=== PATIENT | female | born 1960 | race Caucasian/White ===

== ENCOUNTER → 2016-06-09 | Outpatient (CLI) | payer OTHER ==
[~2016-06-09] MED LIST: ASCO250T PO; BENZ100 PO; FURO1TAB62 PO; FURO20TA PO; GLIP5TAB8 PO; METF500 PO; METF500T PO; MULT-120 PO; NADO20TA PO; ONETAB22 PO; PANT40TA3 PO; PROM12.54 PO; PROM25TA5 PO; PROP10TA6 PO; PROT40TA PO; SPIR25TA PO; SUCR1TAB PO; VITACAP7 PO
[2016-06-09 09:07] LABS: AUTOMATED NEUTROPHIL # 2.7 TH/MM3 (1.8-7.7); BASOPHIL % 0.6 % (0.0-2.0); EOSINOPHIL # 0.1 TH/MM3 (0-0.4); EOSINOPHIL % 1.4 % (0.0-4.0); HEMATOCRIT 23.4 % (35.0-46.0); LYMPH % 21.1 % (9.0-44.0); LYMPHOCYTE # 0.8 TH/MM3 (1.0-4.8); MEAN CELL VOLUME 84.5 FL (80.0-100.0); MEAN CORPUSCULAR HEMOGLOBIN 27.3 PG (27.0-34.0); MEAN CORPUSCULAR HGB CONC 32.3 % (32.0-36.0); NEUT % 69.9 % (16.0-70.0); PLATELET COUNT 48 TH/MM3 (150-450); RED BLOOD COUNT 2.77 MIL/MM3 (4.00-5.30); RED CELL DISTRIBUTION WIDTH 24.4 % (11.6-17.2); WHITE BLOOD COUNT 3.8 TH/MM3 (4.0-11.0)
[2016-06-09 09:19] LABS: HEMO FLAGS AUTO DIFF
[2016-06-09 12:24] LABS: OVALOCYTES 3+ (NORMAL); PLATELET ESTIMATE SMEAR LOW (NORMAL); PLATELET MORPHOLOGY NORMAL (NORMAL); SCAN/DIFF AUTO DIFF CONFIRMED
== END ==
LOC: CLAB 08:32
PROVIDERS: ATTEND Physician Assistant Medical
DX: D69.6 Thrombocytopenia, unspecified (principal)
CPT/HCPCS: 36415; 85025

== ENCOUNTER → 2016-06-12 | Outpatient (CLI) | payer OTHER ==
[2016-06-12 08:37] LABS: AUTOMATED NEUTROPHIL # 1.8 TH/MM3 (1.8-7.7); BASOPHIL % 0.3 % (0.0-2.0); EOSINOPHIL # 0.1 TH/MM3 (0-0.4); EOSINOPHIL % 2.1 % (0.0-4.0); HEMATOCRIT 21.6 % (35.0-46.0); LYMPH % 25.3 % (9.0-44.0); LYMPHOCYTE # 0.7 TH/MM3 (1.0-4.8); MEAN CELL VOLUME 83.1 FL (80.0-100.0); MEAN CORPUSCULAR HEMOGLOBIN 27.8 PG (27.0-34.0); MEAN CORPUSCULAR HGB CONC 33.4 % (32.0-36.0); MONO % 8.1 % (0.0-8.0); NEUT % 64.2 % (16.0-70.0); PLATELET COUNT 51 TH/MM3 (150-450); RED BLOOD COUNT 2.59 MIL/MM3 (4.00-5.30); RED CELL DISTRIBUTION WIDTH 23.3 % (11.6-17.2); WHITE BLOOD COUNT 2.8 TH/MM3 (4.0-11.0)
[2016-06-12 08:44] LABS: HEMO FLAGS AUTO DIFF
[2016-06-12 10:44] LABS: PLATELET ESTIMATE SMEAR LOW (NORMAL); SCAN/DIFF AUTO DIFF CONFIRMED
[2016-06-12 10:45] LABS: OVALOCYTES 2+ (NORMAL); PLATELET MORPHOLOGY NORMAL (NORMAL); TEARDROP RBCS 1+ (NORMAL)
== END ==
LOC: CLAB 08:05
PROVIDERS: ATTEND Family Medicine
DX: D69.6 Thrombocytopenia, unspecified (principal)
CPT/HCPCS: 36415; 85025

== ENCOUNTER 2016-06-15 17:42 | Emergency (ER) | payer OTHER ==
[~2016-06-15] VITALS: Ht 162.6 cm; Wt 83.2 kg
[~2016-06-15 17:42] MED LIST changes: -BENZ100 PO; -FURO20TA PO; -METF500T PO; -NADO20TA PO; -ONETAB22 PO; -PANT40TA3 PO; -PROM12.54 PO; -PROP10TA6 PO; -SPIR25TA PO
[2016-06-15 17:58] VITALS: BP 138/60; PULSE 89; RESP 18; TEMP 98.5; O2SAT 100
[2016-06-15] MEDS ORDERED: SODIUM CHLORIDE 0.9% FLUSH 5 ML FLUSH IVF PRN (19:00)
[2016-06-15 19:20] LABS: BLOOD, URINE NEG (NEG); GLUCOSE,URINE NEG (NEG); KETONE, URINE NEG (NEG); NITRITE,URINE NEG (NEG)
[2016-06-15 19:48] LABS: BACTERIA, URINE OCC /hpf; METHOD OF COLLECTION CLEAN CATCH; SQUAMOUS EPITHELIAL CELL URINE 0-5 /hpf (0-5); URINE COLOR YELLOW (YELLW/STRAW)
[2016-06-15 19:49] LABS: COMMENT (UR) CULT NOT INDICATED; CULTURE IF INDICATED CULT NOT INDICATED
[2016-06-15 20:03] VITALS: BP 137/57; PULSE 92; RESP 20; O2SAT 100
[2016-06-15 20:05] LABS: AUTOMATED NEUTROPHIL # 2.1 TH/MM3 (1.8-7.7); BASOPHIL # 0.1 TH/MM3 (0-0.2); BASOPHIL % 4.3 % (0.0-2.0); EOSINOPHIL # 0.1 TH/MM3 (0-0.4); EOSINOPHIL % 1.9 % (0.0-4.0); HEMATOCRIT 21.3 % (35.0-46.0); LYMPH % 25.8 % (9.0-44.0); LYMPHOCYTE # 0.9 TH/MM3 (1.0-4.8); MEAN CELL VOLUME 81.3 FL (80.0-100.0); MEAN CORPUSCULAR HEMOGLOBIN 26.7 PG (27.0-34.0); MEAN CORPUSCULAR HGB CONC 32.8 % (32.0-36.0); PLATELET COUNT 56 TH/MM3 (150-450); RED BLOOD COUNT 2.62 MIL/MM3 (4.00-5.30); RED CELL DISTRIBUTION WIDTH 21.7 % (11.6-17.2); WHITE BLOOD COUNT 3.4 TH/MM3 (4.0-11.0)
[2016-06-15 20:11] LABS: HEMO FLAGS AUTO DIFF
[2016-06-15 20:15] LABS: POTASSIUM 3.9 MEQ/L (3.5-5.1)
[2016-06-15 20:44] LABS: BICARBONATE 26.5 MEQ/L (21.0-32.0)
[2016-06-15 20:54] LABS: CALCIUM-PROTEIN CORRECTED 8.3 MG/DL (8.5-10.1)
[2016-06-15 21:00] VITALS: BP 139/53; PULSE 78; RESP 20; O2SAT 100
--- NOTE | 2016-06-15 21:05 | PD ---
HPI Chief Complaint: Abnormal Results Time Seen by Provider: 18:08 Travel History International Travel<30 days: No Contact w/Intl Traveler<30days: No Traveled to known affect area: No History of Present Illness HPI Patient 56-year-old female with a history of cirrhosis as well as pancytopenia presents to emergency department today after she was called by nurse stating that her hemoglobin was low as well as her platelets and white blood cell count. She has had to have multiple transfusions in the past. She is followed by Dr. Nickie Roberts for history of pancytopenia and does get iron infusions. Patient states she has been feeling fatigued as well as some mild shortness of breath which is nothing new for her and this been going on for several months. Denies any fever or abdominal pain nausea vomiting bright red blood per stool. PFSH Past Medical History Hx Anticoagulant Therapy: No Anemia: Yes Arthritis: Yes (HIPS, BACK) Heart Rhythm Problems: Yes Cancer: No Cardiovascular Problems: Yes (CHF) High Cholesterol: Yes Chemotherapy: No Chest Pain: Yes Congestive Heart Failure: Yes Cirrhosis: Yes Cerebrovascular Accident: No Diabetes: Yes Patient Takes Glucophage: Yes Diminished Hearing: No Endocrine: Yes Gastrointestinal Disorders: Yes (VARICES IN STOMACH, BANDED JUN 2015/GI BLEED) GERD: Yes Genitourinary: Yes Headaches: Yes Hiatal Hernia: Yes (repaired in 05/2016) Hypertension: Yes (OFF MEDS) Immune Disorder: No Medical other: Yes (pandoscopy 05/2016) Musculoskeletal: Yes Neurologic: No Psychiatric: No Reproductive: No Respiratory: Yes (Pneumonia) Immunizations Current: Yes Migraines: No Seizures: No Ulcer: Yes Tetanus Vaccination: > 5 Years Influenza Vaccination: No : 2 Para: 2 Past Surgical History Abdominal Surgery: Yes ( BANDED VARICES IN STOMACH x 2) Cardiac Surgery: No Section: Yes (x1) Cholecystectomy: Yes Ear Surgery: No Endocrine Surgery: No Eye Surgery: No Genitourinary Surgery: No Gynecologic Surgery: Yes (partial hysterectomy, ) Hysterectomy: Yes Neurologic Surgery: No Oral Surgery: Yes (TONSILS) Thoracic Surgery: No Tonsillectomy: Yes Other Surgery: Yes (LIVER BIOPSY) Social History Alcohol Use: No (hx of use denies at present) Tobacco Use: No Substance Use: No Allergies-Medications (Allergen,Severity, Reaction): Coded Allergies: Amoxicillin (Verified Allergy, Unknown, HIVES, 06/15/16) Morphine (Verified Allergy, Unknown, HIVES, 06/15/16) Reported Meds & Prescriptions Reported Meds & Active Scripts Active Ascorbic Acid 250 Mg Tab 250 Mg PO DAILY Reported Sucralfate 1 Gm Tab 1 Gm PO TID on empty stomach Phenergan (Promethazine HCl) 25 Mg Tab 25 Mg PO Q6H PRN Multivitamin Women (Multiple Vitamins W/ Minerals) 1 Tab Tab 1 Tab PO DAILY B Complex (B-Complex Vitamins) 1 Cap 1 Cap PO DAILY Lasix (Furosemide) 20 Mg Tab 20 Mg PO DAILY Glucophage (Metformin HCl) 500 Mg Tab 2 Tab PO BIDPC With meals Protonix (Pantoprazole Sodium) 40 Mg Tab 40 Mg PO BID Glipizide 5 Mg Tab 5 Mg PO DAILY Take 30 minutes before a meal Review of Systems Except as stated in HPI: all other systems reviewed are Neg Physical Exam Narrative GENERAL: Well-developed well-nourished, quite pleasant in no apparent distress. SKIN: Warm and dry. HEAD: Atraumatic. Normocephalic. EYES: Pupils equal and round. No scleral icterus. No injection or drainage. ENT: No nasal bleeding or discharge. Mucous membranes pink and moist. NECK: Trachea midline. No JVD. CARDIOVASCULAR: Regular rate and rhythm. No murmur appreciated. RESPIRATORY: No accessory muscle use. Clear to auscultation. Breath sounds equal bilaterally. GASTROINTESTINAL: Abdomen soft, non-tender, nondistended. Hepatic and splenic margins not palpable. MUSCULOSKELETAL: No obvious deformities. No clubbing. No cyanosis. No edema. NEUROLOGICAL: Awake and alert. No obvious cranial nerve deficits. Motor grossly within normal limits. Normal speech. PSYCHIATRIC: Appropriate mood and affect; insight and judgment normal. Data Data Last Documented VS Vital Signs Date Time Temp Pulse Resp B/P Pulse Ox O2 Delivery O2 Flow Rate FiO2 06/15/16 22:09 92 20 142/46 99 06/15/16 18:22 Room Air 06/15/16 17:58 98.5 Orders Basic Metabolic Panel (Bmp) (06/15/16 18:59) Complete Blood Count With Diff (06/15/16 18:59) Urinalysis - C+S If Indicated (06/15/16 18:59) Iv Access Insert/Monitor (06/15/16 18:59) Ecg Monitoring (06/15/16 18:59) Oximetry (06/15/16 18:59) Sodium Chloride 0.9% Flush (Ns Flush) (06/15/16 19:00) Protein Corrected Calcium(Pcc) (06/15/16 20:00) Labs Laboratory Tests Test 06/15/16 06/15/16 19:15 20:00 Urine Collection Type CLEAN CATCH Urine Color YELLOW Urine Turbidity CLEAR Urine pH 6.0 Urine Specific [place] 1.003 Urine Protein NEG mg/dL Urine Glucose (UA) NEG mg/dL Urine Ketones NEG mg/dL Urine Occult Blood NEG Urine Nitrite NEG Urine Bilirubin NEG Urine Leukocyte Esterase NEG Urine Squamous Epithelial 0-5 /hpf Cells Urine Bacteria OCC /hpf Microscopic Urinalysis Comment CULT NOT INDICATED White Blood Count 3.4 TH/MM3 Red Blood Count 2.62 MIL/MM3 Hemoglobin 7.0 GM/DL Hematocrit 21.3 % Mean Corpuscular Volume 81.3 FL Mean Corpuscular Hemoglobin 26.7 PG Mean Corpuscular Hemoglobin 32.8 % Concent Red Cell Distribution Width 21.7 % Platelet Count 56 TH/MM3 Mean Platelet Volume 8.7 FL Neutrophils (%) (Auto) 61.0 % Lymphocytes (%) (Auto) 25.8 % Monocytes (%) (Auto) 7.0 % Eosinophils (%) (Auto) 1.9 % Basophils (%) (Auto) 4.3 % Neutrophils # (Auto) 2.1 TH/MM3 Lymphocytes # (Auto) 0.9 TH/MM3 Monocytes # (Auto) 0.2 TH/MM3 Eosinophils # (Auto) 0.1 TH/MM3 Basophils # (Auto) 0.1 TH/MM3 CBC Comment AUTO DIFF Differential Comment AUTO DIFF CONFIRMED Platelet Estimate LOW Platelet Morphology Comment NORMAL Tear Drop Cells 1+ Ovalocytes 2+ Sodium Level 144 MEQ/L Potassium Level 3.9 MEQ/L Chloride Level 110 MEQ/L Carbon Dioxide Level 26.5 MEQ/L Anion Gap 8 MEQ/L Blood Urea Nitrogen 6 MG/DL Creatinine 0.55 MG/DL Estimat Glomerular Filtration 114 ML/MIN Rate Random Glucose 116 MG/DL Calcium Level 7.4 MG/DL Protein Corrected Calcium 8.3 MG/DL Total Protein 5.4 GM/DL MDM Medical Decision Making Medical Screen Exam Complete: Yes Emergency Medical Condition: Yes Differential Diagnosis Pancytopenia, leukopenia, thrombocytopenia, anemia, liver disease, GI bleeding. Narrative Course Patient's labs reviewed and show stable labs over the past 2 months. Hemoglobin is 7.0 today platelet count is 58 and her white blood cell count is 3.5. Given the chronicity of her anemia there is no indication for transfusion at this time, this was discussed with Dr. Boyle. Patient was discussed with Dr. Boyle prior to discharge. Agrees patient can follow-up with Dr. Roberts in the office by phone in the morning. Patient is stable for discharge at this time. Diagnosis Primary Impression: Pancytopenia Disposition: 01 DISCHARGE HOME Condition: Stable Raz Douglas MD Jun 15, 2016 21:04
[2016-06-15 22:02] LABS: OVALOCYTES 2+ (NORMAL); TEARDROP RBCS 1+ (NORMAL)
[2016-06-15 22:03] LABS: PLATELET ESTIMATE SMEAR LOW (NORMAL); PLATELET MORPHOLOGY NORMAL (NORMAL); SCAN/DIFF AUTO DIFF CONFIRMED
[2016-06-15 22:09] VITALS: BP 142/46
[2016-07-03] MEDS ORDERED: BENZ100 PO (09:06)
[2016-07-03] MEDS ORDERED: FURO1TAB62 PO ×2 (09:09→09:26)
[2016-07-03] MEDS ORDERED: SPIR25TA PO (09:26)
[2016-07-10] MEDS ORDERED: PROP10TA6 PO (09:09)
[2016-08-03] MEDS ORDERED: METF500 PO (16:28)
[2016-08-19] MEDS ORDERED: METF500 PO (09:29)
[2016-09-08] MEDS ORDERED: PANT40TA3 PO (08:35)
[2016-09-08] MEDS ORDERED: FURO20TA PO (08:35)
[2016-09-08] MEDS ORDERED: SPIR25TA PO (08:35)
[2016-09-10] MEDS ORDERED: GLIP5TAB8 PO ×2 (10:34→10:36)
[2016-10-08] MEDS ORDERED: PROP10TA6 PO (09:32)
[2016-10-15] MEDS ORDERED: NADO20TA PO (10:19)
[2016-11-09] MEDS ORDERED: METF500T PO (08:29)
[2016-11-13] MEDS ORDERED: NADO20TA PO (10:59)
[2016-11-13] MEDS ORDERED: PROP10TA6 PO (10:59)
[2016-11-13] MEDS ORDERED: ONETAB22 PO (10:59)
[2016-11-13] MEDS ORDERED: PROM12.54 PO (11:00)
== END 2016-06-15 21:15 | disposition home or self-care (01) ==
LOC: PHED 17:42
DX: D61.818 Other pancytopenia (principal); I10 Essential (primary) hypertension; E11.9 Type 2 diabetes mellitus without complications; E78.00 Pure hypercholesterolemia, unspecified
CPT/HCPCS: 80048; 81001; 84155; 85025; 99283

== ENCOUNTER → 2016-06-15 | Outpatient (CLI) | payer OTHER ==
[2016-06-15 08:11] LABS: AUTOMATED NEUTROPHIL # 2.1 TH/MM3 (1.8-7.7); BASOPHIL % 0.5 % (0.0-2.0); EOSINOPHIL # 0.1 TH/MM3 (0-0.4); EOSINOPHIL % 2.7 % (0.0-4.0); HEMATOCRIT 22.4 % (35.0-46.0); LYMPH % 22.8 % (9.0-44.0); LYMPHOCYTE # 0.7 TH/MM3 (1.0-4.8); MEAN CELL VOLUME 83.3 FL (80.0-100.0); MEAN CORPUSCULAR HEMOGLOBIN 26.4 PG (27.0-34.0); MEAN CORPUSCULAR HGB CONC 31.7 % (32.0-36.0); MONO % 6.5 % (0.0-8.0); NEUT % 67.5 % (16.0-70.0); PLATELET COUNT 58 TH/MM3 (150-450); RED BLOOD COUNT 2.69 MIL/MM3 (4.00-5.30); RED CELL DISTRIBUTION WIDTH 22.2 % (11.6-17.2)
[2016-06-15 08:21] LABS: HEMO FLAGS AUTO DIFF
[2016-06-15 10:29] LABS: OVALOCYTES 2+ (NORMAL); PLATELET ESTIMATE SMEAR LOW (NORMAL); PLATELET MORPHOLOGY NORMAL (NORMAL); SCAN/DIFF AUTO DIFF CONFIRMED
[2016-06-15 10:30] LABS: TEARDROP RBCS 1+ (NORMAL)
== END ==
LOC: CLAB 07:55
PROVIDERS: ATTEND Physician Assistant Medical
DX: D69.6 Thrombocytopenia, unspecified (principal)
CPT/HCPCS: 36415; 85025

== ENCOUNTER → 2016-06-18 | Outpatient (CLI) | payer OTHER ==
[~2016-06-18] MED LIST changes: +BENZ100 PO; +FURO20TA PO; +METF500T PO; +NADO20TA PO; +ONETAB22 PO; +PANT40TA3 PO; +PROM12.54 PO; +PROP10TA6 PO; +SPIR25TA PO
[2016-06-18 08:56] LABS: AUTOMATED NEUTROPHIL # 2.6 TH/MM3 (1.8-7.7); BASOPHIL % 0.6 % (0.0-2.0); EOSINOPHIL # 0.1 TH/MM3 (0-0.4); EOSINOPHIL % 1.8 % (0.0-4.0); HEMATOCRIT 21.7 % (35.0-46.0); LYMPHOCYTE # 0.8 TH/MM3 (1.0-4.8); MEAN CELL VOLUME 83.2 FL (80.0-100.0); MEAN CORPUSCULAR HEMOGLOBIN 27.3 PG (27.0-34.0); MEAN CORPUSCULAR HGB CONC 32.8 % (32.0-36.0); NEUT % 69.6 % (16.0-70.0); PLATELET COUNT 56 TH/MM3 (150-450); RED BLOOD COUNT 2.61 MIL/MM3 (4.00-5.30); RED CELL DISTRIBUTION WIDTH 22.7 % (11.6-17.2); WHITE BLOOD COUNT 3.7 TH/MM3 (4.0-11.0)
[2016-06-18 09:02] LABS: HEMO FLAGS AUTO DIFF
[2016-06-18 11:10] LABS: ACANTHOCYTES OCC (NORMAL); OVALOCYTES 3+ (NORMAL); TEARDROP RBCS 2+ (NORMAL)
[2016-06-18 11:11] LABS: PLATELET ESTIMATE SMEAR LOW (NORMAL); PLATELET MORPHOLOGY NORMAL (NORMAL); SCAN/DIFF AUTO DIFF CONFIRMED
== END ==
LOC: CLAB 08:01
PROVIDERS: ATTEND Physician Assistant Medical
DX: D69.6 Thrombocytopenia, unspecified (principal)
CPT/HCPCS: 36415; 85025

== ENCOUNTER → 2016-06-22 | Outpatient (CLI) | payer OTHER ==
[2016-06-22 10:09] LABS: AUTOMATED NEUTROPHIL # 2.7 TH/MM3 (1.8-7.7); BASOPHIL % 0.3 % (0.0-2.0); EOSINOPHIL # 0.1 TH/MM3 (0-0.4); EOSINOPHIL % 2.1 % (0.0-4.0); HEMATOCRIT 22.5 % (35.0-46.0); LYMPH % 23.4 % (9.0-44.0); LYMPHOCYTE # 0.9 TH/MM3 (1.0-4.8); MEAN CELL VOLUME 88.4 FL (80.0-100.0); MEAN CORPUSCULAR HEMOGLOBIN 28.3 PG (27.0-34.0); MONO % 6.2 % (0.0-8.0); PLATELET COUNT 55 TH/MM3 (150-450); RED BLOOD COUNT 2.55 MIL/MM3 (4.00-5.30); RED CELL DISTRIBUTION WIDTH 27.6 % (11.6-17.2); WHITE BLOOD COUNT 3.9 TH/MM3 (4.0-11.0)
[2016-06-22 10:22] LABS: HEMO FLAGS AUTO DIFF
[2016-06-22 11:27] LABS: OVALOCYTES 2+ (NORMAL); PLATELET ESTIMATE SMEAR LOW (NORMAL); PLATELET MORPHOLOGY NORMAL (NORMAL); SCAN/DIFF AUTO DIFF CONFIRMED; TEARDROP RBCS 1+ (NORMAL)
== END ==
LOC: CLAB 09:39
PROVIDERS: ATTEND Physician Assistant Medical
DX: D69.6 Thrombocytopenia, unspecified (principal)
CPT/HCPCS: 36415; 85025

== ENCOUNTER 2016-06-24 20:52 | Inpatient (IN) | payer OTHER ==
[~2016-06-24] VITALS: Ht 162.6 cm; Wt 84.3 kg
[~2016-06-24 20:52] MED LIST changes: -BENZ100 PO; -FURO20TA PO; -METF500T PO; -NADO20TA PO; -ONETAB22 PO; -PANT40TA3 PO; -PROM12.54 PO; -PROP10TA6 PO; -SPIR25TA PO
[2016-06-24 22:34] VITALS: BP 143/47; PULSE 101; RESP 18; TEMP 98.2; O2SAT 99
[2016-06-24 23:00] VITALS: O2SAT 100
[2016-06-24 23:15] VITALS: BP 143/51; PULSE 100; RESP 20; O2SAT 99
[2016-06-24] MEDS ORDERED: SODIUM CHLOR 0.9% 1000 ML INJ 1,000 ML IV SCH (23:29)
[2016-06-24] MEDS ORDERED: PANTOPRAZOLE SODIUM 40 MG VIAL IVP ONE (23:30)
[2016-06-24] MEDS ORDERED: ONDANSETRON HCL 4 MG/2 ML VIAL IVP ONE (23:30)
[2016-06-24] MEDS ORDERED: SODIUM CHLORIDE 0.9% FLUSH 5 ML FLUSH IVF PRN (23:30)
[2016-06-24] MEDS ORDERED: HYDROmorphone HCL PF 1 MG/ML VIAL IV PUSH ONE (23:30)
--- NOTE | 2016-06-24 23:31 | PD ---
HPI Chief Complaint: Abdominal Pain Time Seen by Provider: 23:29 Travel History International Travel<30 days: No Contact w/Intl Traveler<30days: No Traveled to known affect area: No History of Present Illness HPI 56-year-old female presents to the emergency department for complaint of abdominal cramping generalized weakness and shortness of breath. Patient states she has had these symptoms on and off 1 year. Patient is under the care of Dr. Bishop her web consultant and Dr. Carter her software implementation project manager. Patient was just seen by her software implementation project manager on Wednesday and had iron transfusions. Patient was seen by Dr. Bishop in May and underwent endoscopy with banding. Patient does have history of cirrhosis and esophageal varices. Patient also has history of diabetes CHF and chronic pancytopenia. Patient states her blood work on Wednesday indicated her hemoglobin was 7.2. Patient states her platelets usually run between 30,000 and 50,000. Patient does not report any chest pain orthopnea or PND. Patient reports that resting supine actually eases her abdominal cramping and pain. Patient has noted black and tarry stools. Patient denies nausea vomiting hematemesis or coffee-ground emesis. Patient's had no fever or chills. Patient denies cough congestion productive cough hemoptysis also denies dysuria frequency or urgency. Patient's had no skin rash. [facility] Past Medical History Narrative Medical Anemia arthritis dyslipidemia CHF cirrhosis esophageal varices diabetes GI bleed pancytopenia endoscopy colonoscopy blood transfusion peptic ulcer disease liver biopsy partial hysterectomy cholecystectomy tonsillectomy; no tobacco use no alcohol use; nursing notes reviewed Hx Anticoagulant Therapy: No Anemia: Yes Arthritis: Yes (HIPS, BACK) Heart Rhythm Problems: Yes Cancer: No Cardiovascular Problems: Yes High Cholesterol: Yes Chemotherapy: No Chest Pain: Yes Congestive Heart Failure: Yes Cirrhosis: Yes Cerebrovascular Accident: No Diabetes: Yes Patient Takes Glucophage: Yes (06/24/2016 at 2000) Diminished Hearing: No Endocrine: Yes Gastrointestinal Disorders: Yes (VARICES IN STOMACH, BANDED JUN 2015/GI BLEED) GERD: Yes Genitourinary: Yes Headaches: Yes Hiatal Hernia: Yes (repaired in 05/2016) Hypertension: Yes (OFF MEDS) Immune Disorder: No Musculoskeletal: Yes (Three bulging discs, tear in S1 ) Neurologic: No Psychiatric: No Reproductive: No Respiratory: Yes (Pneumonia) Immunizations Current: Yes Migraines: No Seizures: No Ulcer: Yes Tetanus Vaccination: > 5 Years Influenza Vaccination: No ?: Not : 2 Para: 2 Past Surgical History Abdominal Surgery: Yes ( BANDED VARICES IN STOMACH x 2) Cardiac Surgery: No Section: Yes (x1) Cholecystectomy: Yes Ear Surgery: No Endocrine Surgery: No Eye Surgery: No Genitourinary Surgery: No Gynecologic Surgery: Yes (partial hysterectomy, ) Hysterectomy: Yes Neurologic Surgery: No Oral Surgery: Yes (TONSILS) Thoracic Surgery: No Tonsillectomy: Yes Other Surgery: Yes (LIVER BIOPSY) Social History Alcohol Use: No (hx of use denies at present) Tobacco Use: No Substance Use: No Allergies-Medications (Allergen,Severity, Reaction): Coded Allergies: Amoxicillin (Verified Allergy, Unknown, HIVES, 06/24/16) Morphine (Verified Allergy, Unknown, HIVES, 06/24/16) Reported Meds & Prescriptions Reported Meds & Active Scripts Active Ascorbic Acid 250 Mg Tab 250 Mg PO DAILY Reported Sucralfate 1 Gm Tab 1 Gm PO TID on empty stomach Phenergan (Promethazine HCl) 25 Mg Tab 25 Mg PO Q6H PRN Multivitamin Women (Multiple Vitamins W/ Minerals) 1 Tab Tab 1 Tab PO DAILY B Complex (B-Complex Vitamins) 1 Cap 1 Cap PO DAILY Lasix (Furosemide) 20 Mg Tab 20 Mg PO DAILY Glucophage (Metformin HCl) 500 Mg Tab 2 Tab PO BIDPC With meals Protonix (Pantoprazole Sodium) 40 Mg Tab 40 Mg PO BID Glipizide 5 Mg Tab 5 Mg PO DAILY Take 30 minutes before a meal Review of Systems Except as stated in HPI: all other systems reviewed are Neg General / Constitutional: No: Fever, Chills HENT: No: Congestion Cardiovascular: No: Chest Pain or Discomfort Respiratory: Positive: Shortness of Breath, No: Orthopnea Gastrointestinal: Positive: Abdominal Pain, No: Nausea, Vomiting, Diarrhea, Hematochezia (melena) Genitourinary: No: Dysuria Musculoskeletal: No: Myalgias, Arthralgias Skin: No Rash Neurologic: Positive: Weakness, No: Dizziness, Syncope Psychiatric: Positive: Anxiety Hematologic/Lymphatic: No: Lymph Node Enlargement Physical Exam Narrative GENERAL: Well-developed well-nourished female in no acute distress no respiratory distress SKIN: Warm and dry. HEAD: Normocephalic. EYES: No scleral icterus. No injection or drainage. NECK: Supple, trachea midline. No JVD or lymphadenopathy. CARDIOVASCULAR: Increased Regular rate and rhythm without murmurs, gallops, or rubs. RESPIRATORY: Breath sounds equal bilaterally. No accessory muscle use. GASTROINTESTINAL: Abdomen soft, diffusely tender without guarding or rebound, nondistended. No fluid wave. Rectal exam: Normal sphincter tone black stool. MUSCULOSKELETAL: No cyanosis, or edema. BACK: Nontender without obvious deformity. No CVA tenderness. Data Data Last Documented VS Vital Signs Date Time Temp Pulse Resp B/P Pulse Ox O2 Delivery O2 Flow Rate FiO2 06/25/16 02:00 98.4 95 18 142/56 97 Room Air Orders Complete Blood Count With Diff (06/24/16 23:29) Comprehensive Metabolic Panel (06/24/16 23:29) Lipase (06/24/16 23:29) Lactic Acid (06/24/16 23:29) Prothrombin Time / Inr (Pt) (06/24/16 23:29) Act Partial Throm Time (Ptt) (06/24/16 23:29) Urinalysis - C+S If Indicated (06/24/16 23:29) Iv Access Insert/Monitor (06/24/16 23:29) Ecg Monitoring (06/24/16 23:29) Oximetry (06/24/16 23:29) Ondansetron Inj (Zofran Inj) (06/24/16 23:30) Pantoprazole Inj (Protonix Inj) (06/24/16 23:30) Sodium Chlor 0.9% 1000 Ml Inj (Ns 1000 M (06/24/16 23:29) Sodium Chloride 0.9% Flush (Ns Flush) (06/24/16 23:30) Chest, Single Ap (06/24/16 23:29) Orthostatic Vital Signs (06/24/16 23:29) Type And Screen (06/24/16 23:29) Hydromorphone Pf Inj (Dilaudid Pf Inj) (06/24/16 23:30) Ct Abd/Pel W Iv Contrast(Rout) (06/25/16 ) B-Type Natriuretic Peptide (06/25/16 00:39) Red Blood Cells (Rbc) (06/24/16 23:35) Iohexol 350 Inj (Omnipaque 350 Inj) (06/25/16 01:03) Pantoprazole Inj (Protonix Inj) (06/25/16 01:45) Pantoprazole Inj (Protonix Inj) (06/25/16 01:45) Octreotide Inj (Sandostatin Inj) (06/25/16 01:45) NPO (06/25/16 01:32) Red Blood Cells (Rbc) (06/24/16 23:35) Hgb & Hct (06/25/16 01:57) Hgb & Hct (06/25/16 05:57) Hgb & Hct (06/25/16 09:57) Hgb & Hct (06/25/16 13:57) Admit To Inpatient (06/25/16 ) Vital Signs (Adult) Q4H (06/25/16 01:57) Activity Oob With Assistance (06/25/16 01:57) ^ Plumbing Assembler / Telemetry .CONTINUOUS (06/25/16 01:57) Diet Npo (06/25/16 Breakfast) Sodium Chloride 0.9% Flush (Ns Flush) (06/25/16 02:00) Sodium Chloride 0.9% Flush (Ns Flush) (06/25/16 09:00) Ondansetron Inj (Zofran Inj) (06/25/16 02:00) Scd Bilateral/Knee High LATANYA.BID (06/25/16 01:57) Naloxone Inj (Narcan Inj) (06/25/16 02:00) Inpatient Certification (06/25/16 ) Consult Gastroenterology (06/25/16 ) ^ Watch For Or Notify (06/25/16 02:03) ^ Other Nursing Orders (06/25/16 02:04) Admit Order (Ed Use Only) (06/25/16 ) ^ Plumbing Assembler / Telemetry (06/25/16 02:05) Diet Npo (06/26/16 Breakfast) ^ Saline Lock (06/25/16 02:05) Resp Oxygen Micky C Titrat 1-4 L (06/25/16 ) ^ Notify Dr: Other (06/25/16 02:05) Sodium Chloride 0.9% Flush (Ns Flush) (06/25/16 09:00) Sodium Chloride 0.9% Flush (Ns Flush) (06/25/16 02:15) Consult Gastroenterology (06/25/16 ) Labs Laboratory Tests Test 06/24/16 06/25/16 06/25/16 23:35 00:00 00:45 White Blood Count 4.9 TH/MM3 Red Blood Count 2.70 MIL/MM3 Hemoglobin 7.4 GM/DL Hematocrit 24.0 % Mean Corpuscular Volume 89.0 FL Mean Corpuscular Hemoglobin 27.5 PG Mean Corpuscular Hemoglobin 30.9 % Concent Red Cell Distribution Width 25.8 % Platelet Count 46 TH/MM3 Mean Platelet Volume 9.4 FL Neutrophils (%) (Auto) 81.3 % Lymphocytes (%) (Auto) 13.3 % Monocytes (%) (Auto) 3.8 % Eosinophils (%) (Auto) 1.2 % Basophils (%) (Auto) 0.4 % Neutrophils # (Auto) 4.0 TH/MM3 Lymphocytes # (Auto) 0.6 TH/MM3 Monocytes # (Auto) 0.2 TH/MM3 Eosinophils # (Auto) 0.1 TH/MM3 Basophils # (Auto) 0.0 TH/MM3 CBC Comment AUTO DIFF Differential Comment AUTO DIFF CONFIRMED Platelet Estimate LOW Platelet Morphology Comment ENLARGED Tear Drop Cells 2+ Ovalocytes 3+ Prothrombin Time 11.2 SEC Prothromb Time International 1.0 RATIO Ratio Activated Partial 22.3 SEC Thromboplast Time Sodium Level 142 MEQ/L Potassium Level 3.5 MEQ/L Chloride Level 110 MEQ/L Carbon Dioxide Level 22.0 MEQ/L Anion Gap 10 MEQ/L Blood Urea Nitrogen 11 MG/DL Creatinine 0.66 MG/DL Estimat Glomerular Filtration 92 ML/MIN Rate Random Glucose 184 MG/DL Lactic Acid Level 3.4 mmol/L Calcium Level 7.3 MG/DL Protein Corrected Calcium 8.2 MG/DL Total Bilirubin 3.3 MG/DL Aspartate Amino Transf 29 U/L (AST/SGOT) Alanine Aminotransferase 25 U/L (ALT/SGPT) Alkaline Phosphatase 89 U/L Total Protein 5.4 GM/DL Albumin 2.7 GM/DL Lipase 151 U/L Blood Type A POSITIVE Antibody Screen NEGATIVE Crossmatch Leukocyte-Reduced Red Blood Cells Blood Bank Comment Urine Color TOMAS Urine Turbidity CLEAR Urine pH 5.5 Urine Specific [place] 1.032 Urine Protein TRACE mg/dL Urine Glucose (UA) NEG mg/dL Urine Ketones TRACE mg/dL Urine Occult Blood NEG Urine Nitrite NEG Urine Bilirubin NEG Urine Leukocyte Esterase NEG Urine RBC 0-2 /hpf Urine WBC 0-2 /hpf Urine Squamous Epithelial 0-5 /hpf Cells Urine Bacteria FEW /hpf Microscopic Urinalysis Comment CULT NOT INDICATED B-Type Natriuretic Peptide 30 PG/ML MDM Medical Decision Making Medical Screen Exam Complete: Yes Emergency Medical Condition: Yes Medical Record Reviewed: Yes Interpretation(s) Laboratory Tests Test 06/24/16 06/25/16 06/25/16 23:35 00:00 00:45 White Blood Count 4.9 TH/MM3 Red Blood Count 2.70 MIL/MM3 Hemoglobin 7.4 GM/DL Hematocrit 24.0 % Mean Corpuscular Volume 89.0 FL Mean Corpuscular Hemoglobin 27.5 PG Mean Corpuscular Hemoglobin 30.9 % Concent Red Cell Distribution Width 25.8 % Platelet Count 46 TH/MM3 Mean Platelet Volume 9.4 FL Neutrophils (%) (Auto) 81.3 % Lymphocytes (%) (Auto) 13.3 % Monocytes (%) (Auto) 3.8 % Eosinophils (%) (Auto) 1.2 % Basophils (%) (Auto) 0.4 % Neutrophils # (Auto) 4.0 TH/MM3 Lymphocytes # (Auto) 0.6 TH/MM3 Monocytes # (Auto) 0.2 TH/MM3 Eosinophils # (Auto) 0.1 TH/MM3 Basophils # (Auto) 0.0 TH/MM3 CBC Comment AUTO DIFF Differential Comment AUTO DIFF CONFIRMED Platelet Estimate LOW Platelet Morphology Comment ENLARGED Tear Drop Cells 2+ Ovalocytes 3+ Prothrombin Time 11.2 SEC Prothromb Time International 1.0 RATIO Ratio Activated Partial 22.3 SEC Thromboplast Time Sodium Level 142 MEQ/L Potassium Level 3.5 MEQ/L Chloride Level 110 MEQ/L Carbon Dioxide Level 22.0 MEQ/L Anion Gap 10 MEQ/L Blood Urea Nitrogen 11 MG/DL Creatinine 0.66 MG/DL Estimat Glomerular Filtration 92 ML/MIN Rate Random Glucose 184 MG/DL Lactic Acid Level 3.4 mmol/L Calcium Level 7.3 MG/DL Protein Corrected Calcium 8.2 MG/DL Total Bilirubin 3.3 MG/DL Aspartate Amino Transf 29 U/L (AST/SGOT) Alanine Aminotransferase 25 U/L (ALT/SGPT) Alkaline Phosphatase 89 U/L Total Protein 5.4 GM/DL Albumin 2.7 GM/DL Lipase 151 U/L Blood Type A POSITIVE Urine Color TOMAS Urine Turbidity CLEAR Urine pH 5.5 Urine Specific [place] 1.032 Urine Protein TRACE mg/dL Urine Glucose (UA) NEG mg/dL Urine Ketones TRACE mg/dL Urine Occult Blood NEG Urine Nitrite NEG Urine Bilirubin NEG Urine Leukocyte Esterase NEG Urine RBC 0-2 /hpf Urine WBC 0-2 /hpf Urine Squamous Epithelial 0-5 /hpf Cells Urine Bacteria FEW /hpf Microscopic Urinalysis Comment CULT NOT INDICATED B-Type Natriuretic Peptide 30 PG/ML Differential Diagnosis Abdominal pain, hepatitis, pancreatitis, peptic ulcer disease, upper GI bleed, anemia, pancytopenia, CHF, PE Narrative Course IV access obtained specimens collected and sent for resulting including type and screen IV fluids administered Patient given Zofran and Dilaudid for complaint of pain Patient identified to be anemic with hemoglobin of 7.4 near her baseline Rectal exam is positive for melanotic stool but is briskly Hemoccult positive Patient's case discussed with on-call medicine ambulette driver and GI doctor for admission; anticipate after IV fluids and with melanotic stool hemoglobin will drop and patient will require transfusion even though currently her first hemoglobin is near her baseline. Patient was just seen by her software implementation project manager on Wednesday and hemoglobin at that time was 7.2 essentially unchanged. Patient is also identified to have thrombocytopenia. Patient reports that she has history of pancytopenia and thrombocytopenia platelet count usually runs between 30,000 and 50,000 which is her normal. Patient clinically improved after fluids PRBC transfusion as well as Protonix infusion and octreotide Patient's case has been discussed with on-call gastroenterology patient will be kept nothing by mouth with anticipated endoscopy in the a.m.; medicine will admit to ICU; as patient will be going to the ICU case discussed with on-call ambulette driver [employer] Point of Care Internal Pos. & Neg. Controls: Passed Fecal Specimen Occult Blood: Positive Physician Communication Physician Communication discussed with Dr Tuttle; call placed to [facility] for admission, discussed with Dr Lam; discussed with Dr Batista ambulette driver aware of patient ---seems stable for medicine admit to ICU ambulette driver aware Diagnosis Primary Impression: Gastrointestinal hemorrhage with melena Additional Impressions: Anemia Thrombocytopathia Diabetes Paula Lee MD Jun 24, 2016 23:31
[2016-06-24 23:50] LABS: BASOPHIL % 0.4 % (0.0-2.0); EOSINOPHIL # 0.1 TH/MM3 (0-0.4); EOSINOPHIL % 1.2 % (0.0-4.0); LYMPH % 13.3 % (9.0-44.0); LYMPHOCYTE # 0.6 TH/MM3 (1.0-4.8); MEAN CORPUSCULAR HEMOGLOBIN 27.5 PG (27.0-34.0); MEAN CORPUSCULAR HGB CONC 30.9 % (32.0-36.0); MONO % 3.8 % (0.0-8.0); NEUT % 81.3 % (16.0-70.0); PLATELET COUNT 46 TH/MM3 (150-450); RED CELL DISTRIBUTION WIDTH 25.8 % (11.6-17.2); WHITE BLOOD COUNT 4.9 TH/MM3 (4.0-11.0)
[2016-06-24 23:53] LABS: HEMO FLAGS AUTO DIFF
[2016-06-25] VITALS (32 sets, daily range): BP systolic 103–144; BP diastolic 44–61; PULSE 80–106; RESP 12–26; TEMP 98–98.6; O2SAT 92–100
[2016-06-25] LABS: POTASSIUM 3.5 MEQ/L (3.5-5.1)
[2016-06-25 00:05] LABS: APTT (PATIENT) 22.3 SEC (24.3-30.1); PROTHROMBIN TIME - PATIENT 11.2 SEC (9.8-11.6)
[2016-06-25 00:11] LABS: OVALOCYTES 3+ (NORMAL); PLATELET ESTIMATE SMEAR LOW (NORMAL); PLATELET MORPHOLOGY ENLARGED (NORMAL); TEARDROP RBCS 2+ (NORMAL)
[2016-06-25 00:12] LABS: SCAN/DIFF AUTO DIFF CONFIRMED
[2016-06-25 00:13] LABS: CALCIUM-PROTEIN CORRECTED 8.2 MG/DL (8.5-10.1); TOTAL BILIRUBIN ADULT 3.3 MG/DL (0.2-1.0)
--- NOTE | 2016-06-25 00:17 | RADHPO ---
EXAM DATE/TIME: 06/24/2016 23:44 [facility] COMPARISON: CHEST SINGLE AP, March 22, 2016, 22:19. INDICATIONS : Shortness of breath for 24 hours MEDICAL HISTORY : None. SURGICAL HISTORY : None. ENCOUNTER: Initial ACUITY: 1 day PAIN SCORE: 0/10 LOCATION: Bilateral chest FINDINGS: A single view of the chest demonstrates the lungs to be symmetrically aerated without evidence of mas s, infiltrate or effusion. The cardiomediastinal contours are unremarkable. Osseous structures are intact. CONCLUSION: No acute disease. Alfonzo Perez MD on June 25, 2016 at 0:15 Board Certified Radiologist. This report was verified electronically.
[2016-06-25 00:24] LABS: BLOOD, URINE NEG (NEG); GLUCOSE,URINE NEG (NEG); KETONE, URINE TRACE mg/dL (NEG); NITRITE,URINE NEG (NEG); PH, URINE 5.5 (5.0-8.5)
[2016-06-25 00:28] LABS: URINE COLOR AMBER (YELLW/STRAW)
[2016-06-25 00:29] LABS: BACTERIA, URINE FEW /hpf; COMMENT (UR) CULT NOT INDICATED; COMMENT2 (UR) MUCOUS PRESENT; CULTURE IF INDICATED CULT NOT INDICATED; RBC, URINE 0-2 /hpf (0-3); SQUAMOUS EPITHELIAL CELL URINE 0-5 /hpf (0-5); WBC, URINE 0-2 /hpf (0-5)
[2016-06-25] MEDS ORDERED: IOHEXOL 350 MG/ML 10 ML VIAL (for RAD DIAG) IV ONE (01:03)
--- NOTE | 2016-06-25 01:24 | RADHPO ---
EXAM DATE/TIME: 06/25/2016 00:58 [facility] COMPARISON: CT ABDOMEN & PELVIS W CONTRAST, June 21, 2015, 22:36. INDICATIONS : Epigastric abdominal pain with genearlized weakness for one week. IV CONTRAST: 100 cc Omnipaque 350 (iohexol) IV ORAL CONTRAST: No oral contrast ingested. RADIATION DOSE: 18.43 CTDIvol (mGy) MEDICAL HISTORY : Gastroesophageal reflux disease. Hypertension. Gastric varices. SURGICAL HISTORY : Hysterectomy. section.Gastric banding ENCOUNTER: Initial ACUITY: 1 week PAIN SCALE: 5/10 LOCATION: upper quadrant abdomen TECHNIQUE: Volumetric scanning of the abdomen and pelvis was performed. Using automated exposure control and ad justment of the mA and/or kV according to patient size, radiation dose was kept as low as reasonably achievable to obtain optimal diagnostic quality images. FINDINGS: LOWER LUNGS: Slight basilar atelectasis LIVER: Cirrhotic liver appearance without evidence of suspicious mass or biliary ductal dilatation. Tiny lef t lobe cyst. Granulomatous calcifications. Gallbladder surgically absent. Massive recanalized periumb ilical veins SPLEEN: Markedly enlarged measuring 20 cm in sagittal dimension PANCREAS: Within normal limits. KIDNEYS: Normal in size and shape. There is no mass, stone or hydronephrosis. ADRENAL GLANDS: Within normal limits. VASCULAR: There is no aortic aneurysm. BOWEL/MESENTERY: Bowel structures are nondilated and focally unremarkable. There is moderate ascites. ABDOMINAL WALL: Prominent varicosities, particularly on the right RETROPERITONEUM: There is no lymphadenopathy. BLADDER: No wall thickening or mass. REPRODUCTIVE: Uterus is surgically absent. INGUINAL: There is no lymphadenopathy or hernia. MUSCULOSKELETAL: Within normal limits for patient age. CONCLUSION: Cirrhosis and stigmata of portal hypertension. Alfonzo Perez MD on June 25, 2016 at 1:17 Board Certified Radiologist. This report was verified electronically.
[2016-06-25] MEDS ORDERED: SODIUM CHLOR 0.9% 1000 ML INJ 1,000 ML IV SCH (01:32)
[2016-06-25] MEDS ORDERED: PANTOPRAZOLE SODIUM 40 MG VIAL IV PUSH ONE (01:45)
[2016-06-25] MEDS ORDERED: SODIUM CHLORIDE 0.9% FLUSH 5 ML FLUSH FLUSH PRN (02:00)
[2016-06-25] MEDS ORDERED: NALOXONE HCL 0.4 MG/ML AMP IV PRN (02:00)
[2016-06-25] MEDS ORDERED: ONDANSETRON HCL 4 MG/2 ML VIAL IVP PRN (02:00)
[2016-06-25] MEDS: OCTREOTIDE INJ 500 MCG in SODIUM CHLORID 0.9% 500 ML INJ 500 ML IV SCH ×3 (02:14→21:40)
[2016-06-25] MEDS ORDERED: SODIUM CHLORIDE 0.9% FLUSH 5 ML FLUSH IVF PRN (02:15)
[2016-06-25 02:19] LABS: REVIEW FLAG FINAL
[2016-06-25 02:20] LABS: HEMATOCRIT 20.4 % (35.0-46.0)
--- NOTE | 2016-06-25 02:28 | HHI.PR ---
Subjective Remarks I was notified by Dr. Lima about this patient. In brief, this is a 56yF with long-standing history of cirrhosis and chronic anemia, chronic GI bleeds and esophageal varices. She presented to the ED with generalized weakness and fatigue. She has CXR and CT abd/pelvis without evidence of acute abnormalities. Her hgb is stable at 7.4 which is near her baseline. her plt count is 46k, again near her baseline. Her lactate is 3.4, but her bicarb is 22 and with her liver dysfunction, this is almost certainly more likely to be a Type B lactic acidosis from poor hepatic clearance rather than an acute marker of hypoperfusion. GI has been consulted and will likely perform endoscopy in the near future. I have not evaluated the patient because she is in [place] currently. I discussed her care with Dr. Lima. Dr. Lima believes she is stable and safe for admission to the hospitalist service and to the [facility] for close monitoring. From the information provided to me, if Dr. Lima feels she is safe for P.O. ICU admission with hospitalist service, I agree with her assessment. The Critical Care medicine team will remain peripherally aware of the patient. We will defer medical management of the patient to the hospitalist team at this time. Please call with questions or concerns. We will be happy to see the patient in consultation at the request of the medical team caring for the patient. Reji Batista MD Jun 25, 2016 02:28
[2016-06-25] MEDS: PANTOPRAZOLE INJ 80 MG in SODIUM CHLORIDE 0.9% INJ 100 ML IV SCH ×3 (03:05→23:52)
[2016-06-25] MEDS ORDERED: SODIUM CHLOR 0.9% 250 ML INJ 250 ML IV ONE ×2 (04:15)
[2016-06-25] MEDS ORDERED: CHLORHEXIDINE GLUCONATE 2 % 1 PACK (2 CLOTHS)(extra cloths) TOP PRN (06:15)
[2016-06-25] MEDS ORDERED: DEXTROSE 50% IN WATER 50 ML VIAL(D50) IV PUSH PRN (08:45)
[2016-06-25] MEDS ORDERED: GLUCAGON 1 MG/ML VIAL OTHER PRN (08:45)
--- NOTE | 2016-06-25 08:57 | HHI.HP ---
[facility]Staff Admission Diagnosis GI Bleed h/o esophageal varices;h/o pancytopenia Diagnoses: (1) Symptomatic anemia Diagnosis: Principal (2) Melena Diagnosis: Principal (3) Thrombocytopathia Diagnosis: Secondary (4) Cirrhosis Diagnosis: Secondary (5) Diabetes Diagnosis: Secondary Chief Complaint: Lightheadedness, dizziness, melena Travel History International Travel<30 Days: No Contact w/Intl Traveler <30 Da: No Traveled to Known Affected Are: No History of Present Illness 56-year-old female with known history of cirrhosis, pancytopenia, diabetes, history of GI bleed who presented to hospital because of over one year history of intermittent symptoms to include abdominal cramping, shortness of breath, lightheadedness, melanic stools. Patient does go to a scrap preparation supervisor Dr. Roberts on a regular basis and receives iron transfusions. Patient indicates that she has had a recent endoscopy done by Dr. Bishop with banding. Endoscopy done in March by Dr. Pete which did show portal gastropathy, antral watermelon stomach. Patient came to emergency department for evaluation found to have hemoglobin which appear to be stable from previous evaluations, however did drop overnight from 7.4>6.5. Patient does have chronic thrombocytopenia from her chronic medical conditions. Which appear to be improved from previous admissions. Because of the patient's history of esophageal varices, cirrhosis, drop in hemoglobin, symptomatic anemia is recommended the patient be admitted to the ICU with GI consultation by ER physician. At the time evaluating the patient she is resting comfortably. She denies any nausea, vomiting, hematemesis, diarrhea, constipation. Does openly admit to melena. Discussed with system validation engineer today who recommended that the patient be transferred to the main hospital for urgent endoscopy. Review of Systems Constitutional: DENIES: Diaphoretic episodes, Fatigue, Fever, Weight gain, Weight loss, Chills, Dizziness, Change in appetite, Night Sweats Eyes: DENIES: Blurred vision, Diplopia, Eye inflammation, Eye pain, Vision loss , Double Vision Ears, nose, mouth, throat: DENIES: Vertigo, Ear Pain, Running Nose, Sinus Pain Respiratory: DENIES: Apneas, Cough, Snoring, Wheezing, Hemoptysis, Sputum production, Shortness of breath Cardiovascular: DENIES: Chest pain, Palpitations, Syncope, Dyspnea on Exertion , Lower Extremity Edema, Orthopnea Gastrointestinal: COMPLAINS OF: Black stools, DENIES: Abdominal pain, Bloody stools, Constipation, Diarrhea, Nausea, Vomiting, Difficulty Swallowing, Anorexia Neurologic: DENIES: Abnormal gait, Headache, Localized weakness, Paresthesias, Seizures, Speech Problems, Tremor, Poor Balance Psychiatric: DENIES: Anxiety, Confusion, Mood changes, Depression Past Family Social History Past Medical History Cirrhosis History GI bleed History esophageal varices diabetes Thrombocytopenia secondary to cirrhosis Past Surgical History Partial hysterectomy Right knee arthroscopic surgery for ligament repair Cholecystectomy Banded varices Tonsillectomy Liver biopsy EGD Reported Medications Reported Meds & Active Scripts Active Ascorbic Acid 250 Mg Tab 250 Mg PO DAILY Reported Sucralfate 1 Gm Tab 1 Gm PO TID on empty stomach Phenergan (Promethazine HCl) 25 Mg Tab 25 Mg PO Q6H PRN Multivitamin Women (Multiple Vitamins W/ Minerals) 1 Tab Tab 1 Tab PO DAILY B Complex (B-Complex Vitamins) 1 Cap 1 Cap PO DAILY Lasix (Furosemide) 20 Mg Tab 20 Mg PO DAILY Glucophage (Metformin HCl) 500 Mg Tab 2 Tab PO BIDPC With meals Protonix (Pantoprazole Sodium) 40 Mg Tab 40 Mg PO BID Glipizide 5 Mg Tab 5 Mg PO DAILY Take 30 minutes before a meal Allergies: Coded Allergies: Amoxicillin (Verified Allergy, Unknown, HIVES, 06/24/16) Morphine (Verified Allergy, Unknown, HIVES, 06/24/16) Family History Reviewed is significant for heart disease with father Social History Patient denies any tobacco alcohol or illicit drugs Physical Exam Vital Signs Vital Signs Date Time Temp Pulse Resp B/P Pulse Ox O2 Delivery O2 Flow Rate FiO2 06/25/16 07:00 98.0 88 14 113/51 97 06/25/16 06:44 98.3 91 23 122/55 99 06/25/16 06:00 91 06/25/16 06:00 94 26 122/55 100 06/25/16 05:41 98.0 92 23 127/49 100 06/25/16 05:20 98.0 93 20 127/59 97 Room Air 06/25/16 04:55 98.1 93 20 121/61 97 Room Air 06/25/16 04:40 98.4 89 20 114/54 98 Room Air 06/25/16 04:30 98.0 90 20 123/53 98 Room Air 06/25/16 04:25 98.1 89 20 119/51 99 Room Air 06/25/16 03:00 18 06/25/16 02:00 98.4 95 18 142/56 97 Room Air 06/25/16 01:00 106 20 140/47 99 Room Air 06/25/16 00:05 99 20 144/53 103 20 141/48 107 20 134/44 06/24/16 23:15 100 20 143/51 99 Room Air 06/24/16 23:00 100 Room Air 06/24/16 22:45 20 06/24/16 22:34 98.2 101 18 143/47 99 Physical Exam GENERAL: Well-developed, well-nourished, in no acute distress. alert and orientated HEENT: Head is normocephalic without any lesions or masses noted. Facial features are symmetric. Eyes: Pupils equal round reactive to light. Extraocular muscles are intact. Conjunctivae were clear. Oropharyngeal: Pharynx without any erythema edema. Tongue is midline without deviation. Buccal mucosa is moist without any masses or lesions NECK: Supple without any masses. Trachea midline no deviation. No JVD, no bruits are appreciated CARDIAC: Regular rhythm, regular rate. S1/S2 are heard. No murmurs gallops or rubs. LUNGS: Clear to auscultation bilaterally. No wheeze, rhonchi or rales. No use of accessory muscles on inspiration or expiration. ABDOMEN: Soft, nontender. Nondistended. Bowel sounds heard in all 4 quadrants. No organomegaly or masses. Negative rebound, negative guarding EXTREMITIES: No edema, pulses are equal bilaterally. No cyanosis or clubbing NEUROLOGY: Mood and affect appear appropriate. Cranial nerves II through XII grossly intact. Muscle strength 5/5 in upper and lower extremities bilaterally. Deep tendon reflexes are 2+ in upper and lower extremities bilaterally. Laboratory Laboratory Tests Test 06/24/16 06/25/16 06/25/16 06/25/16 23:35 00:00 00:45 02:10 White Blood Count 4.9 Red Blood Count 2.70 Hemoglobin 7.4 6.5 Hematocrit 24.0 20.4 Mean Corpuscular Volume 89.0 Mean Corpuscular Hemoglobin 27.5 Mean Corpuscular Hemoglobin 30.9 Concent Red Cell Distribution Width 25.8 Platelet Count 46 Mean Platelet Volume 9.4 Neutrophils (%) (Auto) 81.3 Lymphocytes (%) (Auto) 13.3 Monocytes (%) (Auto) 3.8 Eosinophils (%) (Auto) 1.2 Basophils (%) (Auto) 0.4 Neutrophils # (Auto) 4.0 Lymphocytes # (Auto) 0.6 Monocytes # (Auto) 0.2 Eosinophils # (Auto) 0.1 Basophils # (Auto) 0.0 CBC Comment AUTO DIFF Differential Comment AUTO DIFF CONFIRMED Platelet Estimate LOW Platelet Morphology Comment ENLARGED Tear Drop Cells 2+ Ovalocytes 3+ Prothrombin Time 11.2 Prothromb Time International 1.0 Ratio Activated Partial 22.3 Thromboplast Time Sodium Level 142 Potassium Level 3.5 Chloride Level 110 Carbon Dioxide Level 22.0 Anion Gap 10 Blood Urea Nitrogen 11 Creatinine 0.66 Estimat Glomerular Filtration 92 Rate Random Glucose 184 Lactic Acid Level 3.4 Calcium Level 7.3 Protein Corrected Calcium 8.2 Total Bilirubin 3.3 Aspartate Amino Transf 29 (AST/SGOT) Alanine Aminotransferase 25 (ALT/SGPT) Alkaline Phosphatase 89 Total Protein 5.4 Albumin 2.7 Lipase 151 Blood Type A POSITIVE Antibody Screen NEGATIVE Crossmatch Leukocyte-Reduced Red Blood Cells Blood Bank Comment Urine Color TOMAS Urine Turbidity CLEAR Urine pH 5.5 Urine Specific [place] 1.032 Urine Protein TRACE Urine Glucose (UA) NEG Urine Ketones TRACE Urine Occult Blood NEG Urine Nitrite NEG Urine Bilirubin NEG Urine Leukocyte Esterase NEG Urine RBC 0-2 Urine WBC 0-2 Urine Squamous Epithelial 0-5 Cells Urine Bacteria FEW Microscopic Urinalysis Comment CULT NOT INDICATED B-Type Natriuretic Peptide 30 Test 06/25/16 04:18 Blood Bank Comment Result Diagram: 06/25/16 0210 06/24/16 2335 Imaging Last Impressions Abdomen/Pelvis CT 06/25/16 0000 Signed Impressions: Service Date/Time: June 00:58 - CONCLUSION: Cirrhosis and stigmata of portal hypertension. Alfonzo Perez MD Chest X-Ray 06/24/16 3049 Signed Impressions: Service Date/Time: Friday, June 24, 2016 23:44 - CONCLUSION: No acute disease. Alfonzo Perez MD Assessment and Plan Assessment and Plan Symptomatic anemia with melenic stools Continue to trend hemoglobin and hematocrit GI consulted for further recommendations Continue Protonix IV Continue octreotide IV Transfuse packed red blood cells to maintain hemoglobin greater than 8.0 Discuss with GI who indicated patient should be transferred to [facility] hospital for endoscopy by GI today by 1 PM History of cirrhosis: Total bilirubin stable Patient followed by GI in outpatient setting Thrombocytopenia secondary to cirrhosis: Actually improved from previous admissions Platelet transfusion per ER physician Diabetes type 2: Hold oral hypoglycemic agents, Hemoglobin A1c 11/20/15 4.8 Accu-Cheks with sliding scale insulin DVT prevention Sequential compression devices, avoid chemical prophylaxis secondary to GI bleed, thrombocytopenia Written by Isaac Ny PA-C, acting as scribe for Dr. Ng on 06/25/16 at 1020. The documentation accurately reflects the work and decisions performed face-to- face by Dr. Ng on 06/25/16 at 1020. Physician Certification 2 Midnight Certification Type: Admission for Inpatient Services Order for Inpatient Services The services are ordered in accordance with Medicare regulations or non- Medicare payer requirements, as applicable. In the case of services not specified as inpatient-only, they are appropriately provided as inpatient services in accordance with the 2-midnight benchmark. Estimated LOS (days): 2 days is the estimated time the patient will need to remain in the hospital, assuming treatment plan goals are met and no additional complications. Post-Hospital Plan: Not yet determined Problem Qualifiers (1) Cirrhosis: Qualified Code: K70.30 - Alcoholic cirrhosis of liver without ascites (2) Diabetes: Qualified Code: E11.8 - Type 2 diabetes mellitus with complication, without long-term current use of insulin Isaac Ny Jun 25, 2016 08:57
[2016-06-25] MEDS ORDERED: SODIUM CHLORIDE 0.9% FLUSH 5 ML FLUSH FLUSH SCH (09:00)
[2016-06-25] MEDS: SUCRALFATE 1 GM TAB PO SCH ×3 (09:00→18:16)
[2016-06-25] MEDS: FUROSEMIDE 20 MG TAB PO SCH (09:00)
[2016-06-25] MEDS: SODIUM CHLORIDE 0.9% FLUSH 5 ML FLUSH IVF SCH ×2 (09:00→21:39)
[2016-06-25] MEDS: INSULIN ASPART SUPPLEMENTAL SCALE SQ SCH ×3 (10:51→21:39)
[2016-06-25] MEDS ORDERED: FAMOTIDINE 20 MG/2 ML VIAL ONE (12:04)
[2016-06-25] MEDS ORDERED: PROPOFOL 200 MG/20 ML AMP IV ONE (12:24)
[2016-06-25] MEDS ORDERED: ONDANSETRON HCL 4 MG/2 ML VIAL IV PUSH ONE ×2 (12:30→14:00)
[2016-06-25] MEDS ORDERED: DO NOT ADM ANY ANTICOAGULANT DRUGS XX PRN (12:59)
[2016-06-25] MEDS ORDERED: *ONDANSETRON 4 MG VIAL PERIprocedural Use ONLY ONE (13:47)
[2016-06-25] MEDS ORDERED: FAMOTIDINE 20 MG/2 ML VIAL IV ONE (14:00)
--- NOTE | 2016-06-25 14:43 | MB ---
cc: TARUN ALVAREZ M.D., MICHELLE S. MD DATE OF CONSULTATION: June 25, 2016 REASON FOR CONSULTATION Liver cirrhosis with melena and GI bleeding and anemia. HISTORY OF PRESENT ILLNESS: Ms. Aiken is a 56-year-old lady with advanced liver cirrhosis she has a pancytopenia, she has had multiple procedures in the past the last endoscopy actually was less than a month ago where according to her a hiatal hernia was found. According to her she has had previous varices requiring banding in the earlier part of the year. The patient currently he is having melena but no upper GI bleeding. REVIEW OF SYSTEMS The patient is fatigued, tired, icteric and having melena. PAST MEDICAL HISTORY 1. Cirrhosis 2. History of GI bleeds 3. Esophageal varices. PAST SURGICAL HISTORY 1. Hysterectomy, 2. 3. cholecystectomy 4. esophageal banding 5. liver biopsy. MEDICATIONS On admission. 1. Ascorbic acid. 2. Carafate. 3. Lasix. 4. Glucophage. 5. Protonix. 6. Glipizide 7. has also been started on octreotide from the emergency room ALLERGIES AMOXICILLIN MORPHINE FAMILY HISTORY: Family history is noncontributory. PHYSICAL EXAMINATION: IN GENERAL: The Physical examination reveals a well-nourished lady obviously jaundiced. HEAD/NECK: Head and neck examination anicteric. Anicteric sclerae. CHEST: Bilateral air entry with rales. ABDOMEN: The abdomen is distended with ascites. CENTRAL NERVOUS SYSTEM: Exam grade 1 cephalopathy. LABORATORY FINDINGS: The labs revealed a hemoglobin of 6.5, platelets 46,000, creatinine of 0.66, INR is 1. IMPRESSION Advanced liver cirrhosis with GI bleeding. RECOMMENDATIONS The patient being transferred to [facility] for emergent esophagogastroduodenoscopy, this will be done under general anesthesia. To continue octreotide and Protonix at this time the patient has been transfused 2 units of blood and 1 packet of platelets further recommendations to follow after the endoscopy. Thank you for this referral. MD ARACELI Lema/giuliana /1:25 PM /2:27 PM
[2016-06-26] VITALS (26 sets, daily range): BP systolic 102–152; BP diastolic 45–74; PULSE 69–87; RESP 5–20; TEMP 98.2–98.9; O2SAT 91–100
[2016-06-26] MEDS: CHLORHEXIDINE GLUCONATE 2 % 1 PACK (2 CLOTHS)(taper/protocol) TOP SCH (03:45)
[2016-06-26 04:57] LABS: AUTOMATED NEUTROPHIL # 2.6 TH/MM3 (1.8-7.7); BASOPHIL # 0.1 TH/MM3 (0-0.2); BASOPHIL % 1.7 % (0.0-2.0); EOSINOPHIL # 0.1 TH/MM3 (0-0.4); EOSINOPHIL % 3.1 % (0.0-4.0); HEMATOCRIT 24.5 % (35.0-46.0); LYMPH % 24.3 % (9.0-44.0); MEAN CELL VOLUME 89.1 FL (80.0-100.0); MEAN CORPUSCULAR HEMOGLOBIN 28.6 PG (27.0-34.0); MEAN CORPUSCULAR HGB CONC 32.1 % (32.0-36.0); MONO % 5.9 % (0.0-8.0); PLATELET COUNT 36 TH/MM3 (150-450); RED BLOOD COUNT 2.75 MIL/MM3 (4.00-5.30); RED CELL DISTRIBUTION WIDTH 22.1 % (11.6-17.2)
[2016-06-26 04:58] LABS: HEMO FLAGS DIFF FINAL
[2016-06-26 05:06] LABS: POTASSIUM 3.7 MEQ/L (3.5-5.1)
[2016-06-26 05:15] LABS: BICARBONATE 25.5 MEQ/L (21.0-32.0); MAGNESIUM 2.1 MG/DL (1.5-2.5)
[2016-06-26 05:27] LABS: CALCIUM-PROTEIN CORRECTED 8.4 MG/DL (8.5-10.1)
[2016-06-26] MEDS: INSULIN ASPART SUPPLEMENTAL SCALE SQ SCH ×4 (06:43→19:52)
[2016-06-26] MEDS: OCTREOTIDE INJ 500 MCG in SODIUM CHLORID 0.9% 500 ML INJ 500 ML IV SCH ×3 (07:45→19:47)
[2016-06-26] MEDS: SUCRALFATE 1 GM TAB PO SCH ×3 (08:31→17:28)
[2016-06-26] MEDS: SODIUM CHLORIDE 0.9% FLUSH 5 ML FLUSH IVF SCH ×2 (08:31→19:47)
--- NOTE | 2016-06-26 08:31 | HHI.PR ---
Subjective Remarks Patient seen and examined today with Dr. Ng. Patient states that she does feel better. She indicates that she has more energy. Patient denies any new complaints. Objective Vitals Vital Signs Date Time Temp Pulse Resp B/P Pulse Ox O2 Delivery O2 Flow Rate FiO2 06/26/16 06:00 69 06/26/16 06:00 76 12 113/52 100 06/26/16 05:00 78 14 106/47 100 06/26/16 04:00 78 15 107/48 100 06/26/16 04:00 77 06/26/16 04:00 98.2 78 13 107/48 100 06/26/16 03:00 78 12 102/47 100 06/26/16 02:00 80 17 108/46 06/26/16 02:00 77 06/26/16 01:00 82 17 104/49 100 06/26/16 00:23 84 5 127/47 06/26/16 00:23 84 5 127/47 100 06/26/16 00:00 84 18 117/55 06/26/16 00:00 86 06/26/16 00:00 84 18 117/55 100 06/25/16 23:00 86 18 119/54 97 06/25/16 22:00 84 17 114/57 97 06/25/16 22:00 82 06/25/16 21:00 82 13 112/59 99 06/25/16 20:23 98.4 82 13 124/56 92 06/25/16 20:00 85 06/25/16 20:00 88 Nasal Cannula 2.00 06/25/16 18:15 80 06/25/16 18:06 98.6 82 16 139/55 96 06/25/16 17:00 98.6 85 13 131/64 98 Nasal Cannula 1 06/25/16 16:30 80 13 126/60 98 Nasal Cannula 1 06/25/16 16:00 82 13 129/62 98 Nasal Cannula 1 06/25/16 15:30 85 13 126/60 96 Nasal Cannula 1 06/25/16 15:00 84 12 129/63 96 Nasal Cannula 1 06/25/16 14:45 90 14 138/65 95 Nasal Cannula 2 06/25/16 14:30 86 13 128/63 97 Nasal Cannula 2 06/25/16 14:15 98.9 87 12 124/62 98 Nasal Cannula 2 1/19/17 14:00 89 12 120/56 98 Nasal Cannula 2 06/25/16 13:45 88 12 124/57 97 Nasal Cannula 2 06/25/16 13:30 90 16 132/63 97 Nasal Cannula 2 06/25/16 13:15 87 14 128/59 96 Nasal Cannula 2 06/25/16 13:00 98.7 91 15 114/67 96 Nasal Cannula 2 06/25/16 12:00 90 16 138/64 96 06/25/16 11:45 100 14 140/70 97 06/25/16 11:36 95 Room Air 06/25/16 11:36 98.6 97 15 137/73 96 06/25/16 10:14 98.5 89 14 112/55 96 06/25/16 10:10 88 06/25/16 10:00 88 14 116/57 06/25/16 09:53 98.5 86 14 116/57 99 06/25/16 09:37 86 14 109/54 06/25/16 09:33 98.5 84 12 109/54 99 06/25/16 09:30 98.5 84 14 107/51 06/25/16 09:00 88 23 114/54 06/25/16 08:30 86 13 103/56 I/O 06/25/16 06/25/16 06/25/16 06/26/16 06/26/16 06/26/16 07:00 15:00 23:00 07:00 15:00 23:00 Intake Total 679 ml 100 ml 2157 ml 428 ml Output Total 100 ml 300 ml Balance 579 ml -200 ml 2157 ml 428 ml Intake Oral 0 ml 530 ml 120 ml IV Total 429 ml 1627 ml 308 ml Packed Cells 250 ml Other 100 ml Output Urine Total 100 ml 300 ml Stool Total 0 ml # Voids 1 2 1 # Bowel Movements 0 1 1 Result Diagram: 06/26/1643906/26/16439 Objective Remarks GENERAL: Well-developed, well-nourished, in no acute distress. alert and orientated HEENT: Head is normocephalic without any lesions or masses noted. Facial features are symmetric. Eyes: Extraocular muscles are intact. Conjunctivae were clear. NECK: Supple without any masses. Trachea midline no deviation. No JVD, CARDIAC: Regular rhythm, regular rate. S1/S2 are heard. No murmurs gallops or rubs. LUNGS: Clear to auscultation bilaterally. No wheeze, rhonchi or rales. No use of accessory muscles on inspiration or expiration. ABDOMEN: Soft, nontender. Nondistended. Bowel sounds heard in all 4 quadrants. No organomegaly or masses. Negative rebound, negative guarding EXTREMITIES: No edema, pulses are equal bilaterally. No cyanosis or clubbing NEUROLOGY: Mood and affect appear appropriate. Cranial nerves II through XII grossly intact. Moving all extremities, speech is clear Urinary Catheter: No Vascular Central Line Catheter: No A/P Assessment and Plan Symptomatic anemia with melenic stools Continue to trend hemoglobin and hematocrit GI consulted for further recommendations, discussed with GI who indicated patient is remained on Protonix drip, octreotide for at least 1 more day. Continue Protonix IV Continue octreotide IV Transfuse packed red blood cells to maintain hemoglobin greater than 8.0 Emergent endoscopy did indicate small esophageal varices in distal esophagus. 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 status post argon plasma coagulation Patient will need a follow-up with outpatient superintendent logging for continued management History of cirrhosis: Total bilirubin stable Patient followed by GI in outpatient setting Thrombocytopenia secondary to cirrhosis: Actually improved from previous admissions Platelet transfusion per ER physician Diabetes type 2: Hold oral hypoglycemic agents, Hemoglobin A1c 11/20/15 4.8 Accu-Cheks with sliding scale insulin DVT prevention Sequential compression devices, avoid chemical prophylaxis secondary to GI bleed, thrombocytopenia Written by Isaac Ny PA-C, acting as scribe for Dr. Ng on 06/26/16 at 16:15. The documentation accurately reflects the work and decisions performed face-to- face by Dr. Ng on 06/26/16 at 16:15. Discharge Planning Discharge planning home in stable condition once cleared by real estate agency licensee Isaac Ny Jun 26, 2016 08:31 Cheri Ng MD Jun 27, 2016 11:56 Medications per medication reconciliation Follow-up primary medical doctor in one week Isaac Ny Jun 26, 2016 08:31
[2016-06-26] MEDS: FUROSEMIDE 20 MG TAB PO SCH (08:33)
[2016-06-26] MEDS: PANTOPRAZOLE INJ 80 MG in SODIUM CHLORIDE 0.9% INJ 100 ML IV SCH ×2 (10:24→17:28)
[2016-06-26 11:02] LABS: HEMATOCRIT 24.9 % (35.0-46.0)
[2016-06-26 11:05] LABS: REVIEW FLAG AUTO DIFF
--- NOTE | 2016-06-26 19:32 | HHI.GIFU ---
Subjective Remarks Comfortable in bed no blood or bleeding Objective Vitals I&O Vital Signs Date Time Temp Pulse Resp B/P Pulse Ox O2 Delivery O2 Flow Rate FiO2 06/26/16 18:00 76 16 104/45 96 06/26/16 18:00 76 06/26/16 17:00 76 13 106/48 98 06/26/16 16:00 98.6 76 14 106/47 96 06/26/16 16:00 76 06/26/16 15:00 78 16 115/53 96 06/26/16 14:00 78 06/26/16 14:00 78 16 116/52 06/26/16 13:00 76 15 114/51 97 06/26/16 12:00 76 06/26/16 12:00 98.8 76 14 118/47 96 06/26/16 11:00 74 20 120/54 95 06/26/16 10:00 74 20 114/49 97 06/26/16 10:00 74 06/26/16 09:00 74 13 107/50 98 06/26/16 08:00 74 06/26/16 08:00 74 14 102/50 98 06/26/16 08:00 93 21 06/26/16 07:00 97 Room Air 06/26/16 07:00 98.9 76 16 102/48 97 06/26/16 06:00 69 06/26/16 06:00 76 12 113/52 100 06/26/16 05:00 78 14 106/47 100 06/26/16 04:00 78 15 107/48 100 06/26/16 04:00 77 06/26/16 04:00 98.2 78 13 107/48 100 06/26/16 03:00 78 12 102/47 100 06/26/16 02:00 80 17 108/46 06/26/16 02:00 77 06/26/16 01:00 82 17 104/49 100 06/26/16 00:23 84 5 127/47 06/26/16 00:23 84 5 127/47 100 06/26/16 00:00 84 18 117/55 06/26/16 00:00 86 06/26/16 00:00 84 18 117/55 100 06/25/16 23:00 86 18 119/54 97 06/25/16 22:00 84 17 114/57 97 06/25/16 22:00 82 06/25/16 21:00 82 13 112/59 99 06/25/16 20:23 98.4 82 13 124/56 92 06/25/16 20:00 85 06/25/16 20:00 88 Nasal Cannula 2.00 I/O 06/25/16 06/25/16 06/25/16 06/26/16 06/26/16 06/26/16 07:00 15:00 23:00 07:00 15:00 23:00 Intake Total 679 ml 100 ml 2157 ml 428 ml 1163 ml Output Total 100 ml 300 ml Balance 579 ml -200 ml 2157 ml 428 ml 1163 ml Intake Oral 0 ml 530 ml 120 ml 480 ml IV Total 429 ml 1627 ml 308 ml 683 ml Packed Cells 250 ml Other 100 ml Output Urine Total 100 ml 300 ml Stool Total 0 ml # Voids 1 2 1 1 # Bowel Movements 0 1 1 Laboratory Laboratory Tests Test 06/26/16 06/26/16 04:40 10:25 White Blood Count 4.0 Red Blood Count 2.75 Hemoglobin 7.9 8.0 Hematocrit 24.5 24.9 Mean Corpuscular Volume 89.1 Mean Corpuscular Hemoglobin 28.6 Mean Corpuscular Hemoglobin 32.1 Concent Red Cell Distribution Width 22.1 Platelet Count 36 Mean Platelet Volume 8.1 Neutrophils (%) (Auto) 65.0 Lymphocytes (%) (Auto) 24.3 Monocytes (%) (Auto) 5.9 Eosinophils (%) (Auto) 3.1 Basophils (%) (Auto) 1.7 Neutrophils # (Auto) 2.6 Lymphocytes # (Auto) 1.0 Monocytes # (Auto) 0.2 Eosinophils # (Auto) 0.1 Basophils # (Auto) 0.1 CBC Comment DIFF FINAL Differential Comment Sodium Level 146 Potassium Level 3.7 Chloride Level 113 Carbon Dioxide Level 25.5 Anion Gap 8 Blood Urea Nitrogen 8 Creatinine 0.69 Estimat Glomerular Filtration 87 Rate Random Glucose 171 Calcium Level 7.0 Protein Corrected Calcium 8.4 Magnesium Level 2.1 Total Protein 4.6 Imaging Last Impressions Abdomen/Pelvis CT 06/25/16 0000 Signed Impressions: Service Date/Time: June 00:58 - CONCLUSION: Cirrhosis and stigmata of portal hypertension. Alfonzo Perez MD Chest X-Ray 06/24/16 7809 Signed Impressions: Service Date/Time: Friday, June 24, 2016 23:44 - CONCLUSION: No acute disease. Alfonzo Perez MD Physical Exam CHEST: Chest is clear to auscultation and percussion. CARDIAC: Regular rate and rhythm with no murmur gallop or rubs. ABDOMEN: Soft, some ascites, nontender; no hepatosplenomegaly; bowel sounds are present in all four quadrants. EXTREMITIES: No clubbing, cyanosis, or edema. SKIN: Normal; no rash; no jaundice. SUPERINTENDENT QUARRY: No focal deficits; alert and oriented times three. Assessment and Plan Plan Known liver cirrhosis with acute GI bleed Currently comfortable in bed no active bleeding hemodynamically stable Continue Protonix and octreotide 1 more day Monitor labs and vital signs and transfuse as needed Advanced a low-salt diet Minimize IV fluids Continue present supportive care Marcelino Pete MD Jun 26, 2016 19:32
[2016-06-26] MEDS: guaiFENesin/CODEINE SYRUP 200 MG/20 MG/10 ML CUP PO PRN (19:46)
[2016-06-27] VITALS (15 sets, daily range): BP systolic 94–120; BP diastolic 44–59; PULSE 62–80; RESP 10–22; TEMP 97.9–98.3; O2SAT 90–97
[2016-06-27] MEDS: CHLORHEXIDINE GLUCONATE 2 % 1 PACK (2 CLOTHS)(taper/protocol) TOP SCH (03:31)
[2016-06-27] MEDS: PANTOPRAZOLE INJ 80 MG in SODIUM CHLORIDE 0.9% INJ 100 ML IV SCH (05:17)
[2016-06-27] MEDS: OCTREOTIDE INJ 500 MCG in SODIUM CHLORID 0.9% 500 ML INJ 500 ML IV SCH (05:18)
[2016-06-27] MEDS: guaiFENesin/CODEINE SYRUP 200 MG/20 MG/10 ML CUP PO PRN (05:46)
[2016-06-27] MEDS: INSULIN ASPART SUPPLEMENTAL SCALE SQ SCH ×2 (05:46→11:43)
[2016-06-27 06:55] LABS: BASOPHIL % 0.4 % (0.0-2.0); EOSINOPHIL # 0.1 TH/MM3 (0-0.4); EOSINOPHIL % 2.7 % (0.0-4.0); HEMATOCRIT 27.5 % (35.0-46.0); LYMPH % 22.4 % (9.0-44.0); MEAN CELL VOLUME 88.9 FL (80.0-100.0); MEAN CORPUSCULAR HEMOGLOBIN 28.8 PG (27.0-34.0); MEAN CORPUSCULAR HGB CONC 32.5 % (32.0-36.0); NEUT % 67.5 % (16.0-70.0); PLATELET COUNT 41 TH/MM3 (150-450); RED CELL DISTRIBUTION WIDTH 22.1 % (11.6-17.2); WHITE BLOOD COUNT 4.4 TH/MM3 (4.0-11.0)
[2016-06-27 06:59] LABS: HEMO FLAGS AUTO DIFF
[2016-06-27 07:14] LABS: CALCIUM-PROTEIN CORRECTED 7.9 MG/DL (8.5-10.1)
[2016-06-27 07:39] LABS: OVALOCYTES 3+ (NORMAL); PLATELET ESTIMATE SMEAR LOW (NORMAL); PLATELET MORPHOLOGY NORMAL (NORMAL); SCAN/DIFF FINAL DIFF MANUAL; TEARDROP RBCS 1+ (NORMAL)
[2016-06-27] MEDS ORDERED: FUROSEMIDE 20 MG/2 ML VIAL IV PUSH ONE (08:30)
[2016-06-27] MEDS ORDERED: PANTOPRAZOLE SOD 40 MG DELAYED RELEASE TAB PO SCH (09:00)
[2016-06-27] MEDS: SODIUM CHLORIDE 0.9% FLUSH 5 ML FLUSH IVF SCH (09:13)
[2016-06-27] MEDS: SUCRALFATE 1 GM TAB PO SCH ×2 (09:13→13:19)
--- NOTE | 2016-06-27 09:30 | HHI.PR ---
Subjective Remarks Patient seen and examined today with Dr. Ng. Patient states that she is feeling better. Having some upper abdominal soreness since procedure and from coughing. Also indicating that she has increased swelling of her upper extremities. Objective Vitals Vital Signs Date Time Temp Pulse Resp B/P Pulse Ox O2 Delivery O2 Flow Rate FiO2 06/27/16 08:00 92 21 06/27/16 07:00 72 10 109/50 93 06/27/16 07:00 93 Room Air 06/27/16 06:00 78 14 118/59 92 06/27/16 06:00 78 06/27/16 05:00 74 12 108/50 91 06/27/16 04:00 97.9 72 12 112/53 91 06/27/16 04:00 72 06/27/16 03:00 74 15 110/52 90 06/27/16 02:00 80 06/27/16 02:00 80 22 120/57 90 06/27/16 01:00 76 14 106/47 91 06/27/16 00:00 74 06/27/16 00:00 98.0 74 15 106/49 92 06/26/16 23:00 72 14 108/54 92 06/26/16 22:00 76 06/26/16 22:00 76 15 105/46 91 06/26/16 21:00 76 15 116/50 93 06/26/16 20:45 92 21 06/26/16 20:00 95 Room Air 06/26/16 20:00 85 06/26/16 20:00 98.6 82 18 115/56 95 06/26/16 19:00 84 20 119/56 06/26/16 18:00 76 16 104/45 96 06/26/16 18:00 76 06/26/16 17:00 76 13 106/48 98 06/26/16 16:00 98.6 76 14 106/47 96 06/26/16 16:00 76 06/26/16 15:00 78 16 115/53 96 06/26/16 14:00 78 06/26/16 14:00 78 16 116/52 06/26/16 13:00 76 15 114/51 97 06/26/16 12:00 76 06/26/16 12:00 98.8 76 14 118/47 96 06/26/16 11:00 74 20 120/54 95 1/20/17 10:00 74 20 114/49 97 06/26/16 10:00 74 I/O 06/26/16 06/26/16 06/26/16 06/27/16 06/27/16 06/27/16 07:00 15:00 23:00 07:00 15:00 23:00 Intake Total 428 ml 1163 ml 639 ml 493 ml Balance 428 ml 1163 ml 639 ml 493 ml Intake Oral 120 ml 480 ml 240 ml 60 ml IV Total 308 ml 683 ml 399 ml 433 ml # Voids 1 1 1 1 # Bowel Movements 1 0 0 Result Diagram: 06/27/16 0545 06/27/16 0545 Objective Remarks GENERAL: Well-developed, well-nourished, in no acute distress. alert and orientated HEENT: Head is normocephalic without any lesions or masses noted. Facial features are symmetric. Eyes: Extraocular muscles are intact. Conjunctivae were clear. NECK: Supple without any masses. Trachea midline no deviation. No JVD, CARDIAC: Regular rhythm, regular rate. S1/S2 are heard. No murmurs gallops or rubs. LUNGS: Clear to auscultation bilaterally. No wheeze, rhonchi or rales. No use of accessory muscles on inspiration or expiration. ABDOMEN: Soft, nontender. Nondistended. Bowel sounds heard in all 4 quadrants. No organomegaly or masses. Negative rebound, negative guarding EXTREMITIES: Bilateral hands have 1+ edema, pulses are equal bilaterally. No cyanosis or clubbing NEUROLOGY: Mood and affect appear appropriate. Cranial nerves II through XII grossly intact. Moving all extremities, speech is clear Urinary Catheter: No Vascular Central Line Catheter: No A/P Assessment and Plan Symptomatic anemia with melenic stools Continue to trend hemoglobin and hematocrit which has significant improved 8.9 GI consulted for further recommendations, who recommended continuation of Protonix and octreotide until today Discontinue Protonix IV, start Protonix 40 mg by mouth twice daily Discontinue octreotide IV Transfuse packed red blood cells to maintain hemoglobin greater than 8.0 Emergent endoscopy did indicate small esophageal varices in distal esophagus. 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 status post argon plasma coagulation Patient will need a follow-up with outpatient scale agent for continued management History of cirrhosis: Total bilirubin stable Patient followed by GI in outpatient setting Thrombocytopenia secondary to cirrhosis: Actually improved from previous admissions Platelet transfusion per ER physician Diabetes type 2: Hold oral hypoglycemic agents, Hemoglobin A1c 11/20/15 4.8 Accu-Cheks with sliding scale insulin Peripheral edema Resume Lasix 20 mg daily Give extra Lasix 20 mg IV 1 DVT prevention Sequential compression devices, avoid chemical prophylaxis secondary to GI bleed, thrombocytopenia Written by Isaac Ny PA-C, acting as scribe for Dr. Ng on 06/27/16 at 1450. The documentation accurately reflects the work and decisions performed face-to- face by Dr. Ng on 06/27/16 at 1450. Discharge Planning Discharge planning home in stable condition Isaac Ny Jun 27, 2016 09:29
[2016-06-27] MEDS: FUROSEMIDE 20 MG TAB PO SCH (09:57)
--- NOTE | 2016-06-27 15:02 | HHI.DCPOC ---
Discharge Care Plan Diagnosis: (1) Symptomatic anemia Goals to Promote Your Health * To prevent worsening of your condition and complications * To maintain your health at the optimal level Directions to Meet Your Goals Take your medications as prescribed Follow your dietary instruction Follow activity as directed Keep your appointments as scheduled Take your immunizations and boosters as scheduled If your symptoms worsen call your PCP, if no PCP go to Urgent Care Center or Emergency Room Smoking is Dangerous to Your Health. Avoid second hand smoke Call the 24-hour hour crisis hotline for domestic abuse at Isaac yN Jun 27, 2016 15:02
--- NOTE | 2016-06-28 14:50 | HHI.DS ---
Discharge Summary Admission Date Jun 25, 2016 at 02:08 Discharge Date: Jun 27, 2016 Admitting Diagnosis GI Bleed h/o esophageal varices;h/o pancytopenia (1) Symptomatic anemia ICD Code: D64.9 Diagnosis: Principal (2) Melena ICD Code: K92.1 Diagnosis: Principal (3) Thrombocytopathia ICD Code: D69.1 Diagnosis: Secondary (4) Cirrhosis ICD Code: K74.60 Diagnosis: Secondary (5) Diabetes ICD Code: E11.9 Diagnosis: Secondary Procedures EGD: Findings indicated small esophageal varices of the distal esophagus. 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 Patient does go to a progressive care unit registered nurse Dr. Roberts on a regular basis and receives iron transfusions. Patient indicates that she has had a recent endoscopy done by Dr. Bishop with banding. Endoscopy done in March by Dr. Pete which did show portal gastropathy, antral watermelon stomach. Patient came to emergency department for evaluation found to have hemoglobin which appear to be stable from previous evaluations, however did drop overnight from 7.4>6.5. Patient does have chronic thrombocytopenia from her chronic medical conditions. Which appear to be improved from previous admissions. Because of the patient's history of esophageal varices, cirrhosis, drop in hemoglobin, symptomatic anemia is recommended the patient be admitted to the ICU with GI consultation by ER physician. At the time evaluating the patient she is resting comfortably. She denies any nausea, vomiting, hematemesis, diarrhea, constipation. Does openly admit to melena. Discussed with telecommunications officer today who recommended that the patient be transferred to the main hospital for urgent endoscopy. CBC/BMP: 06/27/16 0545 06/27/16 0545 Significant Findings Laboratory Tests Test 06/26/16 06/26/16 06/27/16 04:40 10:25 05:45 Red Blood Count 2.75 MIL/MM3 3.10 MIL/MM3 (4.00-5.30) (4.00-5.30) Hemoglobin 7.9 GM/DL 8.0 GM/DL 8.9 GM/DL (11.6-15.3) (11.6-15.3) (11.6-15.3) Hematocrit 24.5 % 24.9 % 27.5 % (35.0-46.0) (35.0-46.0) (35.0-46.0) Red Cell Distribution Width 22.1 % 22.1 % (11.6-17.2) (11.6-17.2) Platelet Count 36 TH/MM3 41 TH/MM3 (150-450) (150-450) Sodium Level 146 MEQ/L (136-145) Chloride Level 113 MEQ/L 113 MEQ/L (98-107) (98-107) Estimat Glomerular Filtration 87 ML/MIN (>89) Rate Random Glucose 171 MG/DL 160 MG/DL (74-106) (74-106) Calcium Level 7.0 MG/DL 6.8 MG/DL (8.5-10.1) (8.5-10.1) Protein Corrected Calcium 8.4 MG/DL 7.9 MG/DL (8.5-10.1) (8.5-10.1) Total Protein 4.6 GM/DL 4.9 GM/DL (6.4-8.2) (6.4-8.2) Platelet Estimate LOW (NORMAL) Tear Drop Cells 1+ (NORMAL) Ovalocytes 3+ (NORMAL) Total Bilirubin 4.0 MG/DL (0.2-1.0) Albumin 2.4 GM/DL (3.4-5.0) PE at Discharge GENERAL: Well-developed, well-nourished, in no acute distress. alert and orientated HEENT: Head is normocephalic without any lesions or masses noted. Facial features are symmetric. Eyes: Extraocular muscles are intact. Conjunctivae were clear. NECK: Supple without any masses. Trachea midline no deviation. No JVD, CARDIAC: Regular rhythm, regular rate. S1/S2 are heard. No murmurs gallops or rubs. LUNGS: Clear to auscultation bilaterally. No wheeze, rhonchi or rales. No use of accessory muscles on inspiration or expiration. ABDOMEN: Soft, nontender. Nondistended. Bowel sounds heard in all 4 quadrants. No organomegaly or masses. Negative rebound, negative guarding EXTREMITIES: Bilateral hands have 1+ edema, pulses are equal bilaterally. No cyanosis or clubbing NEUROLOGY: Mood and affect appear appropriate. Cranial nerves II through XII grossly intact. Moving all extremities, speech is clear Hospital Course 56-year-old female who is known to the hospital for cirrhosis, GI bleed, esophageal varices, gastritis. Patient had presented to hospital multiple times for admissions. She has undergone multiple endoscopies, back in March she had one done by Dr. Pete that showed portal gastropathy. Patient did undergo endoscopy again in May by Dr. Bishop in which she had banding of esophageal varices. Patient is followed in outpatient setting by hematology with iron IV infusions from chronic anemia. Patient does have chronic thrombocytopenia which appears to be stable. The patient presented because she had significant weakness, no energy, shortness of breath on exertion. Patient was found to have anemia, melenic stool. She is admitted the hospital with IV Protonix, IV octreotide. Hemoglobin was trended and her hemoglobin did drop to 6.5. At that time patient was transfused 2 units packed red blood cells. Her blood counts remain stable, however due to the bleeding she was transfused 1 code unit of platelets. She underwent urgent endoscopy again by GI in which did show small esophageal varices in the distal esophagus,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 status post argon plasma coagulation. Patient was continued on IV Protonix, IV octreotide for another 24 hours after endoscopy was performed. Her hemoglobin remained stable. Patient resumed on her by mouth Protonix 40 mg twice daily. Patient remained clinically stable. We plan discharge accordingly with outpatient follow-up with primary medical doctor, outpatient follow-up with GI and hematology. Pt Condition on Discharge: Stable Discharge Disposition: Discharge Home Discharge Time: > 30 minutes Discharge Instructions DIET: Follow Instructions for: Heart Healthy Diet, Diabetic Diet Activities you can perform: Regular-No Restrictions Activities to Avoid: Driving for 24 hrs Follow up Referrals: Gastroenterology - 3 Weeks with Marcelino Pete MD PCP Follow-up - 1 Week Continued Medications: Ascorbic Acid (Ascorbic Acid) 250 Mg Tab 250 MG PO DAILY Nutritional Supplement #30 Ref 0 TAB B-Complex Vitamins (B Complex) 1 Cap 1 CAP PO DAILY Nutritional Supplement #30 Ref 0 CAP Furosemide (Lasix) 20 Mg Tab 20 MG PO DAILY #30 Ref 0 TAB Glipizide (Glipizide) 5 Mg Tab 5 MG PO DAILY Take 30 minutes before a meal Blood Sugar Management #30 Ref 0 TAB Metformin (Glucophage) 500 Mg Tab 2 TAB PO BIDPC With meals Blood Sugar Management #60 Ref 0 TAB Multiple Vitamins W/ Minerals (Multivitamin Women) 1 Tab Tab 1 TAB PO DAILY Nutritional Supplement Ref 0 TAB Pantoprazole (Protonix) 40 Mg Tab 40 MG PO BID Reflux #30 Ref 0 TAB Promethazine (Phenergan) 25 Mg Tab 25 MG PO Q6H PRN Nausea/Vomiting Ref 0 TAB Sucralfate (Sucralfate) 1 Gm Tab 1 GM PO TID on empty stomach Duodenal ulcer #90 Ref 0 TAB Additional Information Written by Isaac Ny PA-C, acting as scribe for Dr. Ng on 06/27/16 at 1450. The documentation accurately reflects the work and decisions performed face-to- face by Dr. Ng on 06/27/16 at 1450. Isaac Ny Jun 28, 2016 14:50
[2016-07-03] MEDS ORDERED: BENZ100 PO (09:06)
[2016-07-03] MEDS ORDERED: FURO1TAB62 PO ×2 (09:09→09:26)
[2016-07-03] MEDS ORDERED: SPIR25TA PO (09:26)
[2016-07-10] MEDS ORDERED: PROP10TA6 PO (09:09)
[2016-08-03] MEDS ORDERED: METF500 PO (16:28)
[2016-08-19] MEDS ORDERED: METF500 PO (09:29)
[2016-09-08] MEDS ORDERED: PANT40TA3 PO (08:35)
[2016-09-08] MEDS ORDERED: FURO20TA PO (08:35)
[2016-09-08] MEDS ORDERED: SPIR25TA PO (08:35)
[2016-09-10] MEDS ORDERED: GLIP5TAB8 PO ×2 (10:34→10:36)
[2016-10-08] MEDS ORDERED: PROP10TA6 PO (09:32)
[2016-10-15] MEDS ORDERED: NADO20TA PO (10:19)
[2016-11-09] MEDS ORDERED: METF500T PO (08:29)
[2016-11-13] MEDS ORDERED: NADO20TA PO (10:59)
[2016-11-13] MEDS ORDERED: PROP10TA6 PO (10:59)
[2016-11-13] MEDS ORDERED: ONETAB22 PO (10:59)
[2016-11-13] MEDS ORDERED: PROM12.54 PO (11:00)
== END 2016-06-27 16:00 | disposition home or self-care (01) | DRG 392 ==
LOC: PHED 20:52 → PHEDA 06-25 02:08 → PHICU 06-25 05:28 → HPAC 06-25 12:00 → PHICU 06-25 18:05
PROVIDERS: ADMIT Family Medicine; ATTEND Family Medicine
PROC: 30233R1 Transfusion of Nonautologous Platelets into Peripheral Vein, Percutaneous Approach (ICD-10-PCS; 2016-06-25)
PROC: 30233N1 Transfusion of Nonautologous Red Blood Cells into Peripheral Vein, Percutaneous Approach (ICD-10-PCS; 2016-06-25)
PROC: 0W3P8ZZ Control Bleeding in Gastrointestinal Tract, Via Natural or Artificial Opening Endoscopic (ICD-10-PCS; principal; 2016-06-25 12:13)
DX: K31.89 Other diseases of stomach and duodenum (principal); I85.00 Esophageal varices without bleeding; D69.59 Other secondary thrombocytopenia; K74.60 Unspecified cirrhosis of liver; I50.9 Heart failure, unspecified; K92.1 Melena; I99.8 Other disorder of circulatory system; D64.9 Anemia, unspecified; E11.9 Type 2 diabetes mellitus without complications; Z79.84 Long term (current) use of oral hypoglycemic drugs
CPT/HCPCS: 36430; 71010; 74177; 80048; 80053; 81001; 82948; 83605; 83690; 83735; 83880; 84155; 85007; 85014; 85018; 85025; 85027; 85610; 85730; 86850; 86900; 86901; 86920; 86922; 87641; 96361; 96374; 96375; C9113; J1170; J1815; J1940; J2354; J2405; J7030; J7040; J7050; P9016; P9035; Q9967

== ENCOUNTER → 2016-07-06 | Outpatient (CLI) | payer OTHER ==
[~2016-07-06] MED LIST changes: +BENZ100 PO; +FURO20TA PO; +METF500T PO; +NADO20TA PO; +ONETAB22 PO; +PANT40TA3 PO; +PROM12.54 PO; +PROP10TA6 PO; +SPIR25TA PO
[2016-07-06 08:22] LABS: AUTOMATED NEUTROPHIL # 2.1 TH/MM3 (1.8-7.7); BASOPHIL % 1.1 % (0.0-2.0); EOSINOPHIL # 0.1 TH/MM3 (0-0.4); EOSINOPHIL % 3.9 % (0.0-4.0); HEMATOCRIT 31.5 % (35.0-46.0); LYMPH % 22.6 % (9.0-44.0); LYMPHOCYTE # 0.8 TH/MM3 (1.0-4.8); MEAN CELL VOLUME 86.8 FL (80.0-100.0); MEAN CORPUSCULAR HEMOGLOBIN 28.5 PG (27.0-34.0); MEAN CORPUSCULAR HGB CONC 32.9 % (32.0-36.0); NEUT % 64.4 % (16.0-70.0); PLATELET COUNT 54 TH/MM3 (150-450); RED BLOOD COUNT 3.63 MIL/MM3 (4.00-5.30); RED CELL DISTRIBUTION WIDTH 20.6 % (11.6-17.2); WHITE BLOOD COUNT 3.3 TH/MM3 (4.0-11.0)
[2016-07-06 08:27] LABS: HEMO FLAGS AUTO DIFF
[2016-07-06 08:46] LABS: ALKALINE PHOSPHATASE 112 U/L (45-117); ALT (GPT) 27 U/L (10-53); ANION GAP 9 MEQ/L (5-15); AST (GOT) 38 U/L (15-37); BICARBONATE 24.3 MEQ/L (21.0-32.0); BLOOD UREA NITROGEN 4 MG/DL (7-18); CHLORIDE 110 MEQ/L (98-107); GLOMERULAR FILTRATION RATE 94 ML/MIN (>89); GLUCOSE,FASTING 131 MG/DL (74-99); POTASSIUM 3.6 MEQ/L (3.5-5.1); SODIUM (NA) 143 MEQ/L (136-145); TOTAL BILIRUBIN ADULT 2.4 MG/DL (0.2-1.0)
[2016-07-06 09:22] LABS: OVALOCYTES 3+ (NORMAL); PLATELET ESTIMATE SMEAR LOW (NORMAL); PLATELET MORPHOLOGY NORMAL (NORMAL); SCAN/DIFF AUTO DIFF CONFIRMED; TEARDROP RBCS 1+ (NORMAL)
== END ==
LOC: CLAB 07:56
PROVIDERS: ATTEND Nurse Practitioner Family
DX: I50.9 Heart failure, unspecified (principal); D69.6 Thrombocytopenia, unspecified; R18.8 Other ascites
CPT/HCPCS: 36415; 80053; 85025

== ENCOUNTER → 2016-07-13 | Outpatient (CLI) | payer OTHER ==
[~2016-07-13] MED LIST changes: -ASCO250T PO
[2016-07-13 09:41] LABS: AUTOMATED NEUTROPHIL # 1.7 TH/MM3 (1.8-7.7); BASOPHIL % 0.6 % (0.0-2.0); EOSINOPHIL # 0.1 TH/MM3 (0-0.4); EOSINOPHIL % 3.5 % (0.0-4.0); HEMATOCRIT 29.8 % (35.0-46.0); LYMPH % 30.9 % (9.0-44.0); LYMPHOCYTE # 0.9 TH/MM3 (1.0-4.8); MEAN CELL VOLUME 85.8 FL (80.0-100.0); MEAN CORPUSCULAR HEMOGLOBIN 28.2 PG (27.0-34.0); MEAN CORPUSCULAR HGB CONC 32.9 % (32.0-36.0); MONO % 5.1 % (0.0-8.0); NEUT % 59.9 % (16.0-70.0); PLATELET COUNT 57 TH/MM3 (150-450); RED BLOOD COUNT 3.47 MIL/MM3 (4.00-5.30); RED CELL DISTRIBUTION WIDTH 19.9 % (11.6-17.2); WHITE BLOOD COUNT 2.9 TH/MM3 (4.0-11.0)
[2016-07-13 09:47] LABS: HEMO FLAGS AUTO DIFF
[2016-07-13 10:27] LABS: OVALOCYTES 3+ (NORMAL); PLATELET ESTIMATE SMEAR LOW (NORMAL); PLATELET MORPHOLOGY NORMAL (NORMAL); SCAN/DIFF AUTO DIFF CONFIRMED; TEARDROP RBCS 1+ (NORMAL)
[2016-07-16 19:55] LABS: (LFP)ALT 22 U/L (6-29); A2 MACROGLOBULIN 212 mg/dL (106-279); FIBROSIS STAGE F4 (()); GGT(LFP) 57 U/L (3-70); HAPTOGLOBIN (LFP) LESS THAN 8 mg/dL (43-212); NECROINFLAMM ACT GRADE A0-A1 (()); REFERENCE ID 1434220 (()); TOTAL BILIRUBIN (LFP) 2.6 mg/dL (0.2-1.2)
== END ==
LOC: CLAB 08:53
PROVIDERS: ATTEND Hospitalist
DX: D69.6 Thrombocytopenia, unspecified (principal); R18.8 Other ascites; K74.60 Unspecified cirrhosis of liver; K76.6 Portal hypertension
CPT/HCPCS: 36415; 80074; 82103; 82105; 82172; 82247; 82390; 82977; 83010; 83883; 84460; 85025

== ENCOUNTER → 2016-09-01 | Outpatient (CLI) | payer OTHER ==
[2016-09-01 10:51] LABS: MEAN CORPUSCULAR HGB CONC 29.5 % (32.0-36.0)
[2016-09-01 11:03] LABS: AUTOMATED NEUTROPHIL # 1.7 TH/MM3 (1.8-7.7); BASOPHIL % 0.6 % (0.0-2.0); EOSINOPHIL % 1.9 % (0.0-4.0); LYMPH % 24.1 % (9.0-44.0); LYMPHOCYTE # 0.6 TH/MM3 (1.0-4.8); MEAN CELL VOLUME 71.6 FL (80.0-100.0); MEAN CORPUSCULAR HEMOGLOBIN 21.1 PG (27.0-34.0); MONO % 6.8 % (0.0-8.0); NEUT % 66.6 % (16.0-70.0); PLATELET COUNT 48 TH/MM3 (150-450); RED BLOOD COUNT 2.58 MIL/MM3 (4.00-5.30); RED CELL DISTRIBUTION WIDTH 20.7 % (11.6-17.2); WHITE BLOOD COUNT 2.6 TH/MM3 (4.0-11.0)
[2016-09-01 11:09] LABS: HEMO FLAGS AUTO DIFF
[2016-09-01 11:16] LABS: HEMATOCRIT 18.5 % (35.0-46.0)
[2016-09-01 11:56] LABS: OVALOCYTES 3+ (NORMAL); SCAN/DIFF AUTO DIFF CONFIRMED
== END ==
LOC: CLAB 10:45
PROVIDERS: ATTEND Physician Assistant Medical
DX: D69.6 Thrombocytopenia, unspecified (principal)
CPT/HCPCS: 36415; 85025

== ENCOUNTER 2016-09-02 14:51 | Inpatient (IN) | payer OTHER ==
[~2016-09-02] VITALS: Ht 162.6 cm; Wt 78.0 kg
[~2016-09-02 14:51] MED LIST changes: -FURO20TA PO; -METF500T PO; -NADO20TA PO; -ONETAB22 PO; -PANT40TA3 PO; -PROM12.54 PO
[2016-09-02 15:11] VITALS: BP 138/58; PULSE 85; RESP 15; TEMP 98.1; O2SAT 100
[2016-09-02 17:03] VITALS: BP 110/45; PULSE 79; RESP 15; TEMP 98.1; O2SAT 100
[2016-09-02] MEDS ORDERED: SODIUM CHLORIDE 0.9% FLUSH 10 ML FLUSH IVF PRN (17:45)
[2016-09-02 17:47] LABS: MEAN CORPUSCULAR HGB CONC 29.5 % (32.0-36.0)
--- NOTE | 2016-09-02 18:04 | PD ---
HPI Chief Complaint: Abnormal Results Time Seen by Provider: 17:39 Travel History International Travel<30 days: No Contact w/Intl Traveler<30days: No Traveled to known affect area: No History of Present Illness HPI So 56 year-old woman with a history of advanced cirrhosis, GI bleed with esophageal varices and gastric angiectasia, pancytopenia, and diabetes who presents to the emergency department with anemia. She follows with her primary Dr. Gray, as well as with gastroenterology Dr. Hartman, and hematology Dr. Roberts. She's had banding of esophageal varices in the past, and recently was admitted in June with GI bleed and melena and found to have bleeding angiectasia in the gastric antrum as well as small esophageal varices of the distal esophagus. She had been in her usual state of health. She is on furosemide 20 mg daily, as well as spironolactone 25 mg daily for edema. She is on metformin and glipizide for her diabetes. She is also on pantoprazole. She has been having some lightheadedness dizziness over the past several days. She had routine blood work for Dr. Gray yesterday was called and told that her hemoglobin was 5.5 and that she should report to the emergency department. She has been having nosebleeds as well as dark stools. Review systems is also positive for some headache for the past couple days. History Past Medical History Narrative Medical Liver cirrhosis History of esophageal varices, gastric inject injury, and GI bleed Anemia/pancytopenia Diabetes CHF Tetanus Vaccination: > 5 Years Influenza Vaccination: No : 2 Para: 2 Social History Alcohol Use: No (hx of use denies at present) Tobacco Use: No Allergies-Medications (Allergen,Severity, Reaction): Coded Allergies: Amoxicillin (Verified Allergy, Unknown, HIVES, 09/02/16) Morphine (Verified Allergy, Unknown, HIVES, 09/02/16) Reported Meds & Prescriptions Reported Meds & Active Scripts Active Glucophage (Metformin HCl) 500 Mg Tab 2 Tab PO BIDPC With meals Spironolactone 25 Mg Tab 25 Mg PO DAILY Lasix (Furosemide) 20 Mg Tab 20 Mg PO DAILY Reported Multivitamin Women (Multiple Vitamins W/ Minerals) 1 Tab Tab 1 Tab PO DAILY B Complex (B-Complex Vitamins) 1 Cap 1 Cap PO DAILY Protonix (Pantoprazole Sodium) 40 Mg Tab 40 Mg PO DAILY Glipizide 5 Mg Tab 5 Mg PO DAILY Take 30 minutes before a meal Review of Systems Except as stated in HPI: all other systems reviewed are Neg Physical Exam Narrative GENERAL: 56 year-old woman, appears pale, nontoxic. SKIN: Focused skin assessment warm/dry. HEAD: Atraumatic. Normocephalic. EYES: Pupils equal and round. No scleral icterus. No injection or drainage. Pale conjunctivae. ENT: No nasal bleeding or discharge. Mucous membranes pink and moist. NECK: Trachea midline. No JVD. CARDIOVASCULAR: Regular rate and rhythm. No murmur appreciated. RESPIRATORY: No accessory muscle use. Clear to auscultation. Breath sounds equal bilaterally. GASTROINTESTINAL: Abdomen soft. There is minimal diffuse tenderness to palpation. No rebound or guarding. MUSCULOSKELETAL: No obvious deformities. Some trace edema both lower extremities. NEUROLOGICAL: Awake and alert. No obvious cranial nerve deficits. Motor grossly within normal limits. Normal speech. Data Data Last Documented VS Vital Signs Date Time Temp Pulse Resp B/P Pulse Ox O2 Delivery O2 Flow Rate FiO2 09/02/16 18:06 100 Room Air 09/02/16 17:03 98.1 79 15 110/45 Orders Complete Blood Count With Diff (09/02/16 17:44) Comprehensive Metabolic Panel (09/02/16 17:44) Lipase (09/02/16 17:44) Prothrombin Time / Inr (Pt) (09/02/16 17:44) Act Partial Throm Time (Ptt) (09/02/16 17:44) Type And Screen (09/02/16 17:44) Red Blood Cells (Rbc) (09/02/16 17:44) Blood Product Administration .UPON TRANSFUSION (09/02/16 17:44) Ecg Monitoring (09/02/16 17:44) Iv Access Insert/Monitor (09/02/16 17:44) Oximetry (09/02/16 17:44) Sodium Chloride 0.9% Flush (Ns Flush) (09/02/16 17:45) Platelet Pheresis (09/02/16 18:36) Blood Product Administration .UPON TRANSFUSION (09/02/16 18:36) Sodium Chlor 0.9% 250 Ml Inj (Ns 250 Ml (09/02/16 18:45) Furosemide Inj (Lasix Inj) (09/02/16 19:00) Admit To Inpatient (09/02/16 ) Vital Signs (Adult) Q4H (09/02/16 18:46) Activity Oob With Assistance (09/02/16 18:46) Bit Welder / Telemetry .CONTINUOUS (09/02/16 18:46) Diet Npo (09/02/16 Dinner) Sodium Chloride 0.9% Flush (Ns Flush) (09/02/16 19:00) Sodium Chloride 0.9% Flush (Ns Flush) (09/02/16 21:00) Ondansetron Inj (Zofran Inj) (09/02/16 19:00) Complete Blood Count With Diff (09/03/16 06:00) Resp Oxygen Micky C Titrat 1-4 L (09/02/16 ) Scd Bilateral/Knee High LATANYA.BID (09/02/16 18:46) Sterling Bilateral/Knee High LATANYA.QSHIFT (09/02/16 18:46) Naloxone Inj (Narcan Inj) (09/02/16 19:00) Inpatient Certification (09/02/16 ) Consult Gastroenterology (09/02/16 ) Labs Laboratory Tests Test 09/02/16 09/02/16 18:00 18:36 White Blood Count 3.7 TH/MM3 Red Blood Count 2.88 MIL/MM3 Hemoglobin 6.0 GM/DL Hematocrit 20.3 % Mean Corpuscular Volume 70.6 FL Mean Corpuscular Hemoglobin 20.8 PG Mean Corpuscular Hemoglobin 29.5 % Concent Red Cell Distribution Width 20.6 % Platelet Count 37 TH/MM3 Mean Platelet Volume 8.0 FL Neutrophils (%) (Auto) 70.3 % Lymphocytes (%) (Auto) 21.5 % Monocytes (%) (Auto) 5.9 % Eosinophils (%) (Auto) 1.7 % Basophils (%) (Auto) 0.6 % Neutrophils # (Auto) 2.6 TH/MM3 Lymphocytes # (Auto) 0.8 TH/MM3 Monocytes # (Auto) 0.2 TH/MM3 Eosinophils # (Auto) 0.1 TH/MM3 Basophils # (Auto) 0.0 TH/MM3 CBC Comment AUTO DIFF Differential Comment AUTO DIFF CONFIRMED Tear Drop Cells 1+ Ovalocytes 3+ Keratocytes 1+ Prothrombin Time 11.3 SEC Prothromb Time International 1.0 RATIO Ratio Activated Partial 21.0 SEC Thromboplast Time Sodium Level 143 MEQ/L Potassium Level 3.6 MEQ/L Chloride Level 108 MEQ/L Carbon Dioxide Level 24.7 MEQ/L Anion Gap 10 MEQ/L Blood Urea Nitrogen 10 MG/DL Creatinine 0.76 MG/DL Estimat Glomerular Filtration 78 ML/MIN Rate Random Glucose 88 MG/DL Calcium Level 7.7 MG/DL Total Bilirubin 2.0 MG/DL Aspartate Amino Transf 16 U/L (AST/SGOT) Alanine Aminotransferase 23 U/L (ALT/SGPT) Alkaline Phosphatase 79 U/L Total Protein 6.0 GM/DL Albumin 3.1 GM/DL Lipase 186 U/L Blood Bank Comment MDM Medical Decision Making Medical Screen Exam Complete: Yes Emergency Medical Condition: Yes Interpretation(s) LABS: CBC remarkable for white count 3.7, he will be 6.0, platelet count 37 CMP generally unremarkable, T bili 2.0, hypoproteinemia. Lipase normal INR 1.0 Differential Diagnosis Anemia, GI bleed, varices, other Narrative Course Medical decision making 48-year-old with advanced cirrhosis, pancytopenia, with known varices and GI bleed, presents with worsening symptomatically anemia, hematoma 5.5, will need admission, changed using, monitoring, reassess. She'll likely need Lasix with her transfusion. Will be admitted.. Diagnosis Primary Impression: Anemia Additional Impressions: Cirrhosis GI bleeding Tra Gonzalez MD Sep 02, 2016 18:04
[2016-09-02 18:06] VITALS: O2SAT 100
[2016-09-02 18:25] LABS: CHLORIDE 108 MEQ/L (98-107); POTASSIUM 3.6 MEQ/L (3.5-5.1); SODIUM (NA) 143 MEQ/L (136-145)
[2016-09-02 18:26] LABS: AUTOMATED NEUTROPHIL # 2.6 TH/MM3 (1.8-7.7); BASOPHIL % 0.6 % (0.0-2.0); EOSINOPHIL # 0.1 TH/MM3 (0-0.4); EOSINOPHIL % 1.7 % (0.0-4.0); LYMPH % 21.5 % (9.0-44.0); LYMPHOCYTE # 0.8 TH/MM3 (1.0-4.8); MEAN CELL VOLUME 70.6 FL (80.0-100.0); MEAN CORPUSCULAR HEMOGLOBIN 20.8 PG (27.0-34.0); MONO % 5.9 % (0.0-8.0); NEUT % 70.3 % (16.0-70.0); PLATELET COUNT 37 TH/MM3 (150-450); RED BLOOD COUNT 2.88 MIL/MM3 (4.00-5.30); RED CELL DISTRIBUTION WIDTH 20.6 % (11.6-17.2); WHITE BLOOD COUNT 3.7 TH/MM3 (4.0-11.0)
[2016-09-02 18:29] LABS: ANION GAP 10 MEQ/L (5-15); BICARBONATE 24.7 MEQ/L (21.0-32.0); BLOOD UREA NITROGEN 10 MG/DL (7-18)
[2016-09-02 18:31] LABS: HEMO FLAGS AUTO DIFF; PROTHROMBIN TIME - PATIENT 11.3 SEC (9.8-11.6)
[2016-09-02 18:32] LABS: ALT (GPT) 23 U/L (10-53); AST (GOT) 16 U/L (15-37); GLOMERULAR FILTRATION RATE 78 ML/MIN (>89)
[2016-09-02 18:33] LABS: HEMATOCRIT 20.3 % (35.0-46.0)
[2016-09-02 18:35] LABS: ALKALINE PHOSPHATASE 79 U/L (45-117)
[2016-09-02] MEDS ORDERED: SODIUM CHLOR 0.9% 250 ML INJ 250 ML IV ONE (18:45)
[2016-09-02 19:00] LABS: KERATOCYTES 1+ (NORMAL); OVALOCYTES 3+ (NORMAL); TEARDROP RBCS 1+ (NORMAL)
[2016-09-02] MEDS ORDERED: NALOXONE HCL 0.4 MG/ML AMP IV PRN (19:00)
[2016-09-02] MEDS ORDERED: FUROSEMIDE 20 MG/2 ML VIAL IV PUSH PRN (19:00)
[2016-09-02] MEDS ORDERED: SODIUM CHLORIDE 0.9% FLUSH 10 ML FLUSH IV FLUSH PRN (19:00)
[2016-09-02] MEDS ORDERED: ONDANSETRON HCL 4 MG/2 ML VIAL IVP PRN (19:00)
[2016-09-02 19:01] LABS: SCAN/DIFF AUTO DIFF CONFIRMED
[2016-09-02 20:23] VITALS: BP 107/44; PULSE 82; TEMP 98.2; O2SAT 100
[2016-09-02] MEDS: SODIUM CHLORIDE 0.9% FLUSH 10 ML FLUSH IV FLUSH SCH (21:15)
--- NOTE | 2016-09-02 21:59 | MB ---
cc: TAMMY MICHAUD M.D. DATE OF CONSULTATION: 09/02/2016 REASON FOR CONSULTATION: Anemia, cirrhosis. Thank you for this consultation. HISTORY OF PRESENT ILLNESS: The patient is a 56-year-old lady who has history of advanced cirrhosis, questionable etiology. The patient denies alcohol use. She thinks it is related to medication or fatty liver. The patient is known to have esophageal varices and she had also gastric telangiectasia, (GAVES), with multiple episodes of bleeding that required coagulation. She also has esophageal varices that was banded in the past. The patient came because of lightheadedness, dizziness, fatigue, found to have severe anemia with hemoglobin less than 6. She came to the emergency room and her hemoglobin was 6.0. She stated that she has dark stool with noticing some blood per rectum. No other complaints. No nausea, vomiting. No hematemesis. SOCIAL HISTORY Negative for tobacco, drug or alcohol. PAST MEDICAL HISTORY Significant for congestive heart failure, diabetes, anemia, esophageal varices, liver cirrhosis. ALLERGIES AMOXICILLIN AND MORPHINE MEDICATIONS Reviewed in the chart. REVIEW OF SYSTEMS All 12-point negative except HPI. PHYSICAL EXAMINATION Alert, oriented, no acute distress. Vital signs: Stable. HEENT: Pupils are round and reactive to light. Neck: Supple. Chest: Clear to auscultation and precaution. Cardiac: Regular rate and rhythm. Abdomen: Soft, nondistended, mild discomfort throughout the abdomen, positive bowel sounds. Extremities: No edema, clubbing or cyanosis at this time. Some trace edema. Neurologically intact. Alert, oriented. Psychologically appropriate. LABORATORY DATA White count 3.7, hemoglobin 6.0, platelet 37, INR 1.0, AST 16, ALT 23, total bilirubin 0.2, lipase 186. ASSESSMENT AND PLAN: The patient is a 56-year-old lady with cirrhosis, most likely steatohepatitis. With low platelet, she was followed by hematology but then she lost her insurance and she stopped going there. It is worth obtaining hematology consult. GI bleed, most likely bleeding from the stomach. We will need to do Argon Plasma Coagulation. We have to transfer her to the main hospital for that. She will need packed RBC, overall guarded prognosis. We will follow up with you. MD SEAN El/NORMA /7:45 PM /9:48 PM
[2016-09-02 22:21] VITALS: BP 108/48; PULSE 83; O2SAT 100
[2016-09-02 22:35] VITALS: BP 121/56; PULSE 88; RESP 20; TEMP 97.9; O2SAT 99
[2016-09-03] VITALS (14 sets, daily range): BP systolic 100–133; BP diastolic 50–59; PULSE 71–86; RESP 16–18; TEMP 97.6–98.3; O2SAT 95–99
[2016-09-03 08:06] LABS: AUTOMATED NEUTROPHIL # 1.6 TH/MM3 (1.8-7.7); BASOPHIL % 0.5 % (0.0-2.0); EOSINOPHIL # 0.1 TH/MM3 (0-0.4); EOSINOPHIL % 2.5 % (0.0-4.0); LYMPH % 27.5 % (9.0-44.0); LYMPHOCYTE # 0.7 TH/MM3 (1.0-4.8); MEAN CORPUSCULAR HEMOGLOBIN 24.2 PG (27.0-34.0); MEAN CORPUSCULAR HGB CONC 32.7 % (32.0-36.0); MONO % 8.1 % (0.0-8.0); NEUT % 61.4 % (16.0-70.0); PLATELET COUNT 40 TH/MM3 (150-450); RED BLOOD COUNT 2.75 MIL/MM3 (4.00-5.30); RED CELL DISTRIBUTION WIDTH 21.3 % (11.6-17.2); WHITE BLOOD COUNT 2.7 TH/MM3 (4.0-11.0)
[2016-09-03 08:18] LABS: HEMO FLAGS AUTO DIFF
[2016-09-03 09:16] LABS: HEMATOCRIT 20.3 % (35.0-46.0)
[2016-09-03] MEDS: SODIUM CHLORIDE 0.9% FLUSH 10 ML FLUSH IV FLUSH SCH ×2 (09:31→21:00)
[2016-09-03 09:50] LABS: OVALOCYTES 2+ (NORMAL); TEARDROP RBCS 1+ (NORMAL)
[2016-09-03 09:51] LABS: PLATELET ESTIMATE SMEAR LOW (NORMAL); PLATELET MORPHOLOGY NORMAL (NORMAL); SCAN/DIFF AUTO DIFF CONFIRMED
[2016-09-03] MEDS ORDERED: SODIUM CHLOR 0.9% 250 ML INJ 250 ML IV ONE (10:00)
--- NOTE | 2016-09-03 13:57 | HHI.HP ---
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 There is no history of alcohol abuse. Patient presented with lightheadedness, dizziness and fatigue and found to have a hemoglobin of 6 after complaining of melanotic stools in the past few days. No nausea, vomiting or hematemesis. There is mild epigastric abdominal pain which is nonradiating. Review of Systems ROS Limitations: Other (All other pertinent systems were reviewed and are negative.) Past Family Social History Past Medical History Liver cirrhosis Congestive heart failure Diabetes Anemia GAVES Past Surgical History Previous EGD Reported Medications Glucophage (Metformin HCl) 500 Mg Tab 2 Tab PO BIDPC With meals Spironolactone 25 Mg Tab 25 Mg PO DAILY Lasix (Furosemide) 20 Mg Tab 20 Mg PO DAILY Multivitamin Women (Multiple Vitamins W/ Minerals) 1 Tab Tab 1 Tab PO DAILY B Complex (B-Complex Vitamins) 1 Cap 1 Cap PO DAILY Protonix (Pantoprazole Sodium) 40 Mg Tab 40 Mg PO DAILY Glipizide 5 Mg Tab 5 Mg PO DAILY Take 30 minutes before a meal Allergies: Coded Allergies: Amoxicillin (Verified Allergy, Unknown, HIVES, 09/02/16) Morphine (Verified Allergy, Unknown, HIVES, 09/02/16) Family History No history of GI bleeding in the family Social History Patient denies smoking, significant alcohol intake or use of any illicit drugs. Physical Exam Vital Signs Vital Signs Date Time Temp Pulse Resp B/P Pulse Ox O2 Delivery O2 Flow Rate FiO2 09/03/16 13:13 98.1 76 16 115/56 96 09/03/16 12:00 98.1 81 18 113/56 97 09/03/16 10:49 98.2 80 16 107/53 98 09/03/16 08:00 97.9 75 18 100/52 95 09/03/16 05:30 97.9 80 16 108/50 95 09/03/16 02:21 98.1 85 18 112/51 09/03/16 01:54 98.1 83 18 133/59 09/03/16 01:15 98.1 83 18 133/59 99 09/03/16 00:20 97.8 86 18 117/51 98 Room Air 09/02/16 22:35 97.9 88 20 121/56 99 Room Air 09/02/16 22:21 83 108/48 100 Room Air 09/02/16 20:23 98.2 82 107/44 100 Room Air 09/02/16 18:06 100 Room Air 09/02/16 17:03 98.1 79 15 110/45 100 Room Air 09/02/16 15:11 98.1 85 15 138/58 100 Physical Exam Not in distress, well-nourished, looks stated age PERRL, positive for pallor, pale conjunctiva without injection, anicteric Nose without bleeding, airway patent, oropharynx clear Supple neck, no masses or thyromegaly, trachea midline Normal rate and regular rhythm, no murmurs gallops or rubs appreciated. Clear to auscultation and symmetric bilaterally, normal respiratory effort. Normal bowel sounds, soft, mild abdominal tenderness, nondistended. Extremities without clubbing, cyanosis, or edema. No rash of generalized distribution. Skin is warm and dry. AAO x3, no cranial nerve deficits, moves all 4 extremities, no focal neurologic deficits Normal mood, appropriate affect Laboratory Laboratory Tests Test 09/02/16 09/02/16 09/03/16 18:00 18:36 06:50 White Blood Count 3.7 2.7 Red Blood Count 2.88 2.75 Hemoglobin 6.0 6.7 Hematocrit 20.3 20.3 Mean Corpuscular Volume 70.6 74.0 Mean Corpuscular Hemoglobin 20.8 24.2 Mean Corpuscular Hemoglobin 29.5 32.7 Concent Red Cell Distribution Width 20.6 21.3 Platelet Count 37 40 Mean Platelet Volume 8.0 9.4 Neutrophils (%) (Auto) 70.3 61.4 Lymphocytes (%) (Auto) 21.5 27.5 Monocytes (%) (Auto) 5.9 8.1 Eosinophils (%) (Auto) 1.7 2.5 Basophils (%) (Auto) 0.6 0.5 Neutrophils # (Auto) 2.6 1.6 Lymphocytes # (Auto) 0.8 0.7 Monocytes # (Auto) 0.2 0.2 Eosinophils # (Auto) 0.1 0.1 Basophils # (Auto) 0.0 0.0 CBC Comment AUTO DIFF AUTO DIFF Differential Comment AUTO DIFF AUTO DIFF CONFIRMED CONFIRMED Tear Drop Cells 1+ 1+ Ovalocytes 3+ 2+ Keratocytes 1+ Prothrombin Time 11.3 Prothromb Time International 1.0 Ratio Activated Partial 21.0 Thromboplast Time Sodium Level 143 Potassium Level 3.6 Chloride Level 108 Carbon Dioxide Level 24.7 Anion Gap 10 Blood Urea Nitrogen 10 Creatinine 0.76 Estimat Glomerular Filtration 78 Rate Random Glucose 88 Calcium Level 7.7 Total Bilirubin 2.0 Aspartate Amino Transf 16 (AST/SGOT) Alanine Aminotransferase 23 (ALT/SGPT) Alkaline Phosphatase 79 Total Protein 6.0 Albumin 3.1 Lipase 186 Blood Type A POSITIVE Antibody Screen NEGATIVE Crossmatch Leukocyte-Reduced Red Blood Cells Blood Bank Comment Platelet Estimate LOW Platelet Morphology Comment NORMAL Result Diagram: 09/03/16 0650 09/02/16 1800 Assessment and Plan Assessment and Plan This is a 56-year-old female with history of liver cirrhosis with esophageal varices, GAVES presented with severe anemia Likely upper GI bleeding-history of esophageal varices and GAVES. GI consulted , for EGD today. Start Protonix and octreotide. Monitor hemoglobin and hematocrit every 12 hours, nothing by mouth for now. Severe anemia-secondary to acute blood loss, nothing by mouth, transfuse 2 units again, hemoglobin still low despite transfusion of 2 units yesterday. PPI and Protonix. Liver cirrhosis-restart Lasix, Aldactone tomorrow, hold today. She's NPO Diabetes mellitus-hold hypoglycemic agents, sliding scale insulin for now DVT prophylaxis: Pharmacological prophylaxis contraindicated because of GI bleed , SCDs. Code Status Full code Physician Certification 2 Midnight Certification Type: Admission for Inpatient Services Order for Inpatient Services The services are ordered in accordance with Medicare regulations or non- Medicare payer requirements, as applicable. In the case of services not specified as inpatient-only, they are appropriately provided as inpatient services in accordance with the 2-midnight benchmark. Estimated LOS (days): 2 days is the estimated time the patient will need to remain in the hospital, assuming treatment plan goals are met and no additional complications. Post-Hospital Plan: Home Sacha Alas MD Sep 03, 2016 13:57
[2016-09-03] MEDS ORDERED: PANTOPRAZOLE INJ 80 MG in SODIUM CHLORIDE 0.9% INJ 100 ML IV SCH (14:00)
[2016-09-03] MEDS ORDERED: OCTREOTIDE INJ 500 MCG in SODIUM CHLORID 0.9% 500 ML INJ 500 ML IV ONE (15:00)
[2016-09-03] MEDS ORDERED: PANTOPRAZOLE INJ 80 MG in SODIUM CHLORIDE 0.9% INJ 35 ML IV ONE (15:00)
[2016-09-03] MEDS: INSULIN ASPART SUPPLEMENTAL SCALE SQ SCH ×2 (16:00→21:00)
[2016-09-03 16:06] LABS: HEMATOCRIT 28.9 % (35.0-46.0)
[2016-09-03 16:09] LABS: REVIEW FLAG FINAL
--- NOTE | 2016-09-03 20:14 | HHI.GIFU ---
Subjective Remarks Comfortable in bed no new complaints does report passing dark stools Objective Vitals I&O Vital Signs Date Time Temp Pulse Resp B/P Pulse Ox O2 Delivery O2 Flow Rate FiO2 09/03/16 16:00 97.6 72 18 108/54 96 09/03/16 13:13 98.1 76 16 115/56 96 09/03/16 12:00 98.1 81 18 113/56 97 09/03/16 10:49 98.2 80 16 107/53 98 09/03/16 08:00 71 09/03/16 08:00 97.9 75 18 100/52 95 09/03/16 05:30 97.9 80 16 108/50 95 09/03/16 02:21 98.1 85 18 112/51 09/03/16 01:54 98.1 83 18 133/59 09/03/16 01:15 98.1 83 18 133/59 99 09/03/16 00:20 97.8 86 18 117/51 98 Room Air 09/02/16 22:35 97.9 88 20 121/56 99 Room Air 09/02/16 22:21 83 108/48 100 Room Air 09/02/16 20:23 98.2 82 107/44 100 Room Air I/O 09/02/16 09/02/16 09/02/16 09/03/16 09/03/16 09/03/16 07:00 15:00 23:00 07:00 15:00 23:00 Intake Total 216 ml 250 ml 691 ml Output Total 400 ml Balance 216 ml 250 ml 291 ml Intake Oral 0 ml 0 ml IV Total 50 ml Packed Cells 250 ml 641 ml Platelets 216 ml Output Urine Total 400 ml # Voids 1 4 # Bowel Movements 0 Laboratory Laboratory Tests Test 09/03/16 09/03/16 06:50 15:55 White Blood Count 2.7 Red Blood Count 2.75 Hemoglobin 6.7 9.6 Hematocrit 20.3 28.9 Mean Corpuscular Volume 74.0 Mean Corpuscular Hemoglobin 24.2 Mean Corpuscular Hemoglobin 32.7 Concent Red Cell Distribution Width 21.3 Platelet Count 40 Mean Platelet Volume 9.4 Neutrophils (%) (Auto) 61.4 Lymphocytes (%) (Auto) 27.5 Monocytes (%) (Auto) 8.1 Eosinophils (%) (Auto) 2.5 Basophils (%) (Auto) 0.5 Neutrophils # (Auto) 1.6 Lymphocytes # (Auto) 0.7 Monocytes # (Auto) 0.2 Eosinophils # (Auto) 0.1 Basophils # (Auto) 0.0 CBC Comment AUTO DIFF Differential Comment AUTO DIFF CONFIRMED Platelet Estimate LOW Platelet Morphology Comment NORMAL Tear Drop Cells 1+ Ovalocytes 2+ Physical Exam HEENT: normocephalic; atraumatic; no jaundice. Throat is clear. NECK: Neck is supple. CHEST: Chest is clear to auscultation and percussion. CARDIAC: Regular rate and rhythm with no murmur gallop or rubs. ABDOMEN: Soft, nondistended, nontender; no hepatosplenomegaly; bowel sounds are present in all four quadrants. EXTREMITIES: No clubbing, cyanosis, or edema. SKIN: Normal; no rash; no jaundice. [employer]ICATION: No focal deficits; alert and oriented times three. Assessment and Plan Plan Anemia Melena Cirrhosis Agree with current supportive care Monitor labs and transfuse as needed No evidence of active bleeding and patient is stable hemodynamically Plan for an EGD tomorrow We will also obtain an alpha-fetoprotein and liver imaging Marcelino Pete MD Sep 03, 2016 20:14
[2016-09-03 22:09] LABS: HEMATOCRIT 29.2 % (35.0-46.0)
[2016-09-03 22:14] LABS: REVIEW FLAG FINAL
[2016-09-03 23:26] LABS: BICARBONATE 21.3 MEQ/L (21.0-32.0); MAGNESIUM 2.1 MG/DL (1.5-2.5); POTASSIUM 4.4 MEQ/L (3.5-5.1)
[2016-09-04] VITALS (7 sets, daily range): BP systolic 118–136; BP diastolic 57–62; PULSE 64–71; RESP 16–20; TEMP 97.4–98.2; O2SAT 95–98
[2016-09-04] MEDS: INSULIN ASPART SUPPLEMENTAL SCALE SQ SCH ×4 (05:38→21:00)
[2016-09-04 06:20] LABS: HEMATOCRIT 27.2 % (35.0-46.0); MEAN CELL VOLUME 76.2 FL (80.0-100.0); MEAN CORPUSCULAR HGB CONC 32.8 % (32.0-36.0); PLATELET COUNT 42 TH/MM3 (150-450); RED BLOOD COUNT 3.57 MIL/MM3 (4.00-5.30); RED CELL DISTRIBUTION WIDTH 21.1 % (11.6-17.2); WHITE BLOOD COUNT 3.7 TH/MM3 (4.0-11.0)
[2016-09-04 06:27] LABS: REVIEW FLAG FINAL
[2016-09-04 06:42] LABS: ALKALINE PHOSPHATASE 76 U/L (45-117); ALT (GPT) 20 U/L (10-53); ANION GAP 11 MEQ/L (5-15); AST (GOT) 20 U/L (15-37); BICARBONATE 22.3 MEQ/L (21.0-32.0); BLOOD UREA NITROGEN 12 MG/DL (7-18); CHLORIDE 110 MEQ/L (98-107); GLOMERULAR FILTRATION RATE 83 ML/MIN (>89); POTASSIUM 3.9 MEQ/L (3.5-5.1); SODIUM (NA) 143 MEQ/L (136-145); TOTAL BILIRUBIN ADULT 5.4 MG/DL (0.2-1.0)
[2016-09-04] MEDS: SODIUM CHLORIDE 0.9% FLUSH 10 ML FLUSH IV FLUSH SCH ×2 (09:00→21:36)
--- NOTE | 2016-09-04 09:57 | RADRPT ---
EXAM DATE/TIME: 09/04/2016 08:26 [place] COMPARISON: CT ABDOMEN & PELVIS W CONTRAST, June 25, 2016, 0:58. INDICATIONS : Cirrhosis. MEDICAL HISTORY : Congestive heart failure. Hypercholesterolemia. Hernia, hiatal. Neck pain. Headaches. Chest pain. Irr egular heartbeat. Dyspnea. Pneumonia. GI Bleed. Varices in stomach. Ulcer. GERD. UTI. Bulging discs. Arthritis. Diabetes. Cirrhosis. Anemia. SURGICAL HISTORY : Tonsillectomy. Hysterectomy. section. Banded varices in stomach. Hiatal hernia repair. Kathy cystectomy. Right knee surgery. Liver biopsy. Blood transfusions. ENCOUNTER: Subsequent ACUITY: 1 day PAIN SCORE: 0/10 LOCATION: Bilateral upper quadrant MEASUREMENTS: LIVER: 13.9 cm length COMMON DUCT: 3 mm RIGHT KIDNEY: 11.9 x 4.6 x 6.1 cm SPLEEN: 24.1 cm length FINDINGS: LIVER: Coarsened echotexture with some nodularity characteristic of cirrhosis. Capsular echogenic foci corre spond to capsular calcifications in the posterior right hepatic lobe on the prior CT. Otherwise, no f ocal mass lesion or intrahepatic biliary ductal dilatation. Prominent portal vein with apparent recan alization of the umbilical vein. Small amount of free fluid around the hepatic and splenic convexiti es. COMMON DUCT: No intraluminal mass or stone visualized. GALLBLADDER: Patient is status post cholecystectomy PANCREAS: The visualized portions are within normal limits. RIGHT KIDNEY: No hydronephrosis, stone or mass. SPLEEN: Punctate echogenic foci suggest old granulomatous disease CONCLUSION: 1. Spectrum of findings characteristic of cirrhosis with portal hypertension. Marked distention of th e portal vein, recanalization of the umbilical vein, ascites, nodular liver with coarsened echotextur e and splenomegaly. 2. Benign-appearing echogenic foci in the right hepatic lobe corresponds to capsular calcifications o n the prior CT. 3. Patient is status post cholecystectomy. 4. Old granulomatous disease. Paulino Claire MD on September 04, 2016 at 9:49 Board Certified Radiologist. This report was verified electronically.
[2016-09-04] MEDS ORDERED: PROPOFOL 200 MG/20 ML AMP IV ONE (13:04)
--- NOTE | 2016-09-04 13:24 | GIPROC ---
[facility] [address] [facility]. [facility], [address] EGD PROCEDURE REPORT EXAM DATE: 09/04/2016 PATIENT NAME: Purnima Aiken MR #: [id number] BIRTHDATE: 1960 ATTENDING: Marcelino Pete MD ORDER #: [id number] HYDRAULIC ASSEMBLER: Pratibha Chin and [employer] STATUS: inpatient INDICATIONS: The patient is a 56 yr old female here for an EGD due to anemia and melena PROCEDURE PERFORMED: EGD w/ ablation MEDICATIONS: None and Per Anesthesia. TOPICAL ANESTHETIC: CONSENT: The patient understands the risks and benefits of the procedure and understands that these risks include, but are not limited to: sedation, allergic reaction, infection, perforation and/or bleeding. Alternative means of evaluation and treatment include, among others: physical exam, x-rays, and/or surgical intervention. The patient elects to proceed with this endoscopic procedure. medical equipment was checked for proper function. Hand hygiene and appropriate measures for infection prevention was taken. After the risks, benefits and alternatives of the procedure were thoroughly explained, Informed consent was verified, confirmed and timeout was successfully executed by the treatment team. The patient was anesthetized with topical anesthesia and the Pentax [id number] endoscope was introduced through the mouth and advanced to the second portion of the duodenum. Retroflexed views revealed no abnormalities The gastroscope was then slowly withdrawn and removed. STOMACH: A large non-bleeding angioectasia was found in the gastric antrum. Argon plasma coagulation was applied to the site(s). With complete hemostasis achieved. Mild portal hypertensive gastropathy was found in the gastric body and gastric antrum. The endoscopy was otherwise normal. ADVERSE EVENTS: There were no complications. IMPRESSIONS: 1. Non-bleeding angioectasia in the gastric antrum; Argon plasma coagulation was applied to the site(s); with complete hemostasis achieved 2. Portal hypertensive gastropathy was found in the gastric body and gastric antrum 3. Normal endoscopy otherwise 4. Retroflexed views revealed no abnormalities RECOMMENDATIONS: 1. Continue PPI 2. Follow-up: GI clinic 4 week(s) PATIENT CONDITION: stable DISPOSITION: Inpatient REPEAT EXAM: Return 2 months EGD Marcelino Pete MD eSigned: Marcelino Pete MD 09/04/2016 1:24 PM cc:
--- NOTE | 2016-09-04 16:09 | HHI.PR ---
Subjective Remarks Follow-up for GI bleed next Still with melanotic stools, no abdominal pain. Status post EGD, no nauseated. Hemoglobin dropped by a bit. No shortness of breath Objective Vitals Vital Signs Date Time Temp Pulse Resp B/P Pulse Ox O2 Delivery O2 Flow Rate FiO2 09/04/16 13:35 70 18 136/61 97 09/04/16 13:20 98.2 71 18 140/57 97 09/04/16 12:00 97.4 70 20 129/58 97 09/04/16 12:00 98.0 68 20 124/60 96 09/04/16 08:00 98.0 68 20 124/60 96 09/04/16 04:30 98.0 70 16 118/57 96 09/03/16 23:48 98.3 73 16 124/59 95 09/03/16 20:52 74 09/03/16 20:50 98.1 76 16 125/51 95 09/03/16 20:00 76 I/O 09/03/16 09/03/16 09/03/16 09/04/16 09/04/16 09/04/16 07:00 15:00 23:00 07:00 15:00 23:00 Intake Total 250 ml 691 ml 0 ml 0 ml Output Total 400 ml 0 ml 300 ml 200 ml Balance 250 ml 291 ml 0 ml -300 ml -200 ml Intake Oral 0 ml 0 ml 0 ml 0 ml IV Total 50 ml Packed Cells 250 ml 641 ml Output Urine Total 400 ml 0 ml 300 ml 200 ml # Voids 4 # Bowel Movements 0 0 0 Result Diagram: 09/04/16 0515 09/04/16 0515 Objective Remarks Not in distress, well-nourished, looks stated age PERRL, positive for pallor, pale conjunctiva without injection, anicteric Nose without bleeding, airway patent, oropharynx clear Supple neck, no masses or thyromegaly, trachea midline Normal rate and regular rhythm, no murmurs gallops or rubs appreciated. Clear to auscultation and symmetric bilaterally, normal respiratory effort. Normal bowel sounds, soft, mild abdominal tenderness, nondistended. Extremities without clubbing, cyanosis, or edema. No rash of generalized distribution. Skin is warm and dry. AAO x3, no cranial nerve deficits, moves all 4 extremities, no focal neurologic deficits Normal mood, appropriate affect Procedures Status post EGD, showed angiectasia and portal gastropathy, status post argon laser. A/P Assessment and Plan This is a 56-year-old female with history of liver cirrhosis with esophageal varices, GAVES presented with severe anemia Likely upper GI bleeding-history of esophageal varices and GAVES. GI consulted , status post EGD, showed angiectasia status post artery laser, nonbleeding, also with portal gastropathy, stop octreotide, continue Protonix, switch to oral. Continue to Monitor hemoglobin and hematocrit every 12 hours, nothing by mouth for now. Transfuse as needed. Severe anemia-secondary to acute blood loss, transfuse 3 units PRBC Liver cirrhosis-restart Lasix, Aldactone Diabetes mellitus-hold hypoglycemic agents, sliding scale insulin for now DVT prophylaxis: Pharmacological prophylaxis contraindicated because of GI bleed , SCDs. Sacha Alas MD Sep 04, 2016 16:09
[2016-09-04] MEDS: FUROSEMIDE 20 MG TAB PO SCH (17:03)
[2016-09-04] MEDS: metFORMIN HCL 500 MG TAB PO SCH (17:03)
[2016-09-04 18:46] LABS: HEMATOCRIT 28.1 % (35.0-46.0)
[2016-09-04 18:47] LABS: REVIEW FLAG FINAL
[2016-09-04] MEDS: PANTOPRAZOLE SOD 40 MG DELAYED RELEASE TAB PO SCH (21:34)
[2016-09-04] MEDS ORDERED: HYDROmorphone HCL PF 1 MG/ML VIAL IV PUSH ONE (22:30)
[2016-09-05] VITALS: BP 118/57; PULSE 73; RESP 16; TEMP 98.4; O2SAT 96
[2016-09-05 04:00] VITALS: BP 100/52; PULSE 69; RESP 14; TEMP 98.9; O2SAT 96
[2016-09-05 04:57] LABS: HEMATOCRIT 27.6 % (35.0-46.0); MEAN CELL VOLUME 76.8 FL (80.0-100.0); MEAN CORPUSCULAR HGB CONC 32.5 % (32.0-36.0); PLATELET COUNT 47 TH/MM3 (150-450); RED CELL DISTRIBUTION WIDTH 21.3 % (11.6-17.2); WHITE BLOOD COUNT 4.7 TH/MM3 (4.0-11.0)
[2016-09-05 05:04] LABS: REVIEW FLAG FINAL
[2016-09-05] MEDS: INSULIN ASPART SUPPLEMENTAL SCALE SQ SCH ×2 (05:50→12:00)
[2016-09-05 08:00] VITALS: BP 94/60; PULSE 69; RESP 18; TEMP 97.7; O2SAT 98
[2016-09-05] MEDS ORDERED: PANT40TA3 PO (08:34)
--- NOTE | 2016-09-05 08:42 | HHI.DS ---
Discharge Summary Admission Date Sep 02, 2016 at 19:06 Discharge Date: Sep 05, 2016 Admitting Diagnosis anemia, GI bleed, thrombocytopenia (1) GI bleeding ICD Code: K92.2 Diagnosis: Principal (2) Anemia ICD Code: D64.9 Diagnosis: Secondary (3) Cirrhosis ICD Code: K74.60 Diagnosis: Secondary (4) Symptomatic anemia ICD Code: D64.9 Diagnosis: Secondary Procedures Status post EGD, showed angiectasia and portal gastropathy, status post argon laser. 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 There is no history of alcohol abuse. Patient presented with lightheadedness, dizziness and fatigue and found to have a hemoglobin of 6 after complaining of melanotic stools in the past few days. No nausea, vomiting or hematemesis. There is mild epigastric abdominal pain which is nonradiating. CBC/BMP: 09/05/16 0422 09/04/16 0515 Significant Findings Laboratory Tests Test 09/02/16 09/03/16 09/03/16 09/03/16 18:00 06:50 15:55 21:42 White Blood Count 3.7 TH/MM3 2.7 TH/MM3 (4.0-11.0) (4.0-11.0) Red Blood Count 2.88 MIL/MM3 2.75 MIL/MM3 (4.00-5.30) (4.00-5.30) Hemoglobin 6.0 GM/DL 6.7 GM/DL 9.6 GM/DL 9.5 GM/DL (11.6-15.3) (11.6-15.3) (11.6-15.3) (11.6-15.3) Hematocrit 20.3 % 20.3 % 28.9 % 29.2 % (35.0-46.0) (35.0-46.0) (35.0-46.0) (35.0-46.0) Mean Corpuscular Volume 70.6 FL 74.0 FL (80.0-100.0) (80.0-100.0) Mean Corpuscular Hemoglobin 20.8 PG 24.2 PG (27.0-34.0) (27.0-34.0) Mean Corpuscular Hemoglobin 29.5 % Concent (32.0-36.0) Red Cell Distribution Width 20.6 % 21.3 % (11.6-17.2) (11.6-17.2) Platelet Count 37 TH/MM3 40 TH/MM3 (150-450) (150-450) Neutrophils (%) (Auto) 70.3 % (16.0-70.0) Lymphocytes # (Auto) 0.8 TH/MM3 0.7 TH/MM3 (1.0-4.8) (1.0-4.8) Tear Drop Cells 1+ (NORMAL) 1+ (NORMAL) Ovalocytes 3+ (NORMAL) 2+ (NORMAL) Keratocytes 1+ (NORMAL) Activated Partial 21.0 SEC Thromboplast Time (24.3-30.1) Chloride Level 108 MEQ/L 110 MEQ/L (98-107) (98-107) Estimat Glomerular Filtration 78 ML/MIN (>89) 87 ML/MIN (>89) Rate Calcium Level 7.7 MG/DL 7.9 MG/DL (8.5-10.1) (8.5-10.1) Total Bilirubin 2.0 MG/DL (0.2-1.0) Total Protein 6.0 GM/DL (6.4-8.2) Albumin 3.1 GM/DL (3.4-5.0) Monocytes (%) (Auto) 8.1 % (0.0-8.0) Neutrophils # (Auto) 1.6 TH/MM3 (1.8-7.7) Platelet Estimate LOW (NORMAL) Random Glucose 133 MG/DL (74-106) Test 09/04/16 09/04/16 09/05/16 05:15 18:25 04:22 White Blood Count 3.7 TH/MM3 (4.0-11.0) Red Blood Count 3.57 MIL/MM3 3.60 MIL/MM3 (4.00-5.30) (4.00-5.30) Hemoglobin 8.9 GM/DL 8.8 GM/DL 9.0 GM/DL (11.6-15.3) (11.6-15.3) (11.6-15.3) Hematocrit 27.2 % 28.1 % 27.6 % (35.0-46.0) (35.0-46.0) (35.0-46.0) Mean Corpuscular Volume 76.2 FL 76.8 FL (80.0-100.0) (80.0-100.0) Mean Corpuscular Hemoglobin 25.0 PG 25.0 PG (27.0-34.0) (27.0-34.0) Red Cell Distribution Width 21.1 % 21.3 % (11.6-17.2) (11.6-17.2) Platelet Count 42 TH/MM3 47 TH/MM3 (150-450) (150-450) Chloride Level 110 MEQ/L (98-107) Estimat Glomerular Filtration 83 ML/MIN (>89) Rate Random Glucose 149 MG/DL (74-106) Calcium Level 7.7 MG/DL (8.5-10.1) Total Bilirubin 5.4 MG/DL (0.2-1.0) Total Protein 5.3 GM/DL (6.4-8.2) Albumin 2.9 GM/DL (3.4-5.0) Imaging Last Impressions Liver Ultrasound 09/04/16 0000 Signed Impressions: Service Date/Time: Sunday, September 04, 2016 08:26 - CONCLUSION: 1. Spectrum of findings characteristic of cirrhosis with portal hypertension. Marked distention of the portal vein, recanalization of the umbilical vein, ascites, nodular liver with coarsened echotexture and splenomegaly. 2. Benign-appearing echogenic foci in the right hepatic lobe corresponds to capsular calcifications on the prior CT. 3. Patient is status post cholecystectomy. 4. Old granulomatous disease. Paulino Claire MD PE at Discharge Not in distress, well-nourished, looks stated age PERRL, anicteric sclera. Nose without bleeding, airway patent, oropharynx clear Supple neck, no masses or thyromegaly, trachea midline Normal rate and regular rhythm, no murmurs gallops or rubs appreciated. Clear to auscultation and symmetric bilaterally, normal respiratory effort. Normal bowel sounds, soft, no abdominal tenderness, nondistended. Extremities without clubbing, cyanosis, or edema. No rash of generalized distribution. Skin is warm and dry. AAO x3, no cranial nerve deficits, moves all 4 extremities, no focal neurologic deficits Normal mood, appropriate affect Pt update on day of discharge Follow-up for GI bleed No melanotic stools, no hematochezia, abdominal pain, nausea or vomiting. No shortness of breath. Hospital Course This is a 56-year-old female with history of liver cirrhosis with esophageal varices, GAVES presented with severe anemia. Patient was admitted for upper GI bleeding. She has history of esophageal varices and GAVES. GI consulted, status post EGD, showed angioectasia status post argon plasma coagulation, nonbleeding, also with portal gastropathy, she'll continue Protonix twice a day. Her hemoglobin remained stable after transfusion of 2 units of packed red blood cells. She was restarted on her home diuretics. She will be discharged to follow-up with gastroenterology. Pt Condition on Discharge: Good Discharge Disposition: Discharge Home Discharge Time: > 30 minutes Discharge Instructions DIET: Follow Instructions for: Heart Healthy Diet Activities you can perform: Regular-No Restrictions Follow up Referrals: Gastroenterology - 2 Weeks New Medications: Pantoprazole (Pantoprazole) 40 Mg Tab 40 MG PO Q12HR GI bleed #60 TAB Continued Medications: B-Complex Vitamins (B Complex) 1 Cap 1 CAP PO DAILY Nutritional Supplement #30 Ref 0 CAP Furosemide (Lasix) 20 Mg Tab 20 MG PO DAILY #30 Ref 3 TAB Glipizide (Glipizide) 5 Mg Tab 5 MG PO DAILY Take 30 minutes before a meal Blood Sugar Management #30 Ref 0 TAB Metformin (Glucophage) 500 Mg Tab 2 TAB PO BIDPC With meals Blood Sugar Management #60 Ref 2 TAB Multiple Vitamins W/ Minerals (Multivitamin Women) 1 Tab Tab 1 TAB PO DAILY Nutritional Supplement Ref 0 TAB Spironolactone (Spironolactone) 25 Mg Tab 25 MG PO DAILY #30 Ref 3 TAB Discontinued Medications: Pantoprazole (Protonix) 40 Mg Tab 40 MG PO DAILY Reflux #30 Ref 0 TAB Sacha Alas MD Sep 05, 2016 08:42
[2016-09-05] MEDS: FUROSEMIDE 20 MG TAB PO SCH (09:00)
[2016-09-05] MEDS ORDERED: SPIRONOLACTONE 25 MG TAB PO SCH (09:00)
[2016-09-05] MEDS: SODIUM CHLORIDE 0.9% FLUSH 10 ML FLUSH IV FLUSH SCH (09:00)
[2016-09-05] MEDS ORDERED: VITAMIN B COMPLEX/VIT C TAB PO SCH (09:00)
[2016-09-05] MEDS: PANTOPRAZOLE SOD 40 MG DELAYED RELEASE TAB PO SCH (10:22)
[2016-09-05] MEDS: metFORMIN HCL 500 MG TAB PO SCH (10:22)
[2016-09-08] MEDS ORDERED: PANT40TA3 PO (08:35)
[2016-09-08] MEDS ORDERED: FURO20TA PO (08:35)
[2016-09-08] MEDS ORDERED: SPIR25TA PO (08:35)
[2016-09-10] MEDS ORDERED: GLIP5TAB8 PO ×2 (10:34→10:36)
[2016-10-08] MEDS ORDERED: PROP10TA6 PO (09:32)
[2016-10-15] MEDS ORDERED: NADO20TA PO (10:19)
[2016-11-09] MEDS ORDERED: METF500T PO (08:29)
[2016-11-13] MEDS ORDERED: NADO20TA PO (10:59)
[2016-11-13] MEDS ORDERED: PROP10TA6 PO (10:59)
[2016-11-13] MEDS ORDERED: ONETAB22 PO (10:59)
[2016-11-13] MEDS ORDERED: PROM12.54 PO (11:00)
== END 2016-09-05 12:47 | disposition home or self-care (01) | DRG 378 ==
LOC: PHED 14:51 → PHEDA 19:06 → N04B 09-03 01:04
PROVIDERS: ADMIT Hospitalist; ATTEND Hospitalist
PROC: 30233R1 Transfusion of Nonautologous Platelets into Peripheral Vein, Percutaneous Approach (ICD-10-PCS; 2016-09-02)
PROC: 30233N1 Transfusion of Nonautologous Red Blood Cells into Peripheral Vein, Percutaneous Approach (ICD-10-PCS; 2016-09-02)
PROC: 0D568ZZ Destruction of Stomach, Via Natural or Artificial Opening Endoscopic (ICD-10-PCS; principal; 2016-09-04 13:15)
DX: K92.2 Gastrointestinal hemorrhage, unspecified (principal); K76.6 Portal hypertension; I50.9 Heart failure, unspecified; D62 Acute posthemorrhagic anemia; K74.60 Unspecified cirrhosis of liver; K31.819 Angiodysplasia of stomach and duodenum without bleeding; K31.89 Other diseases of stomach and duodenum; E11.9 Type 2 diabetes mellitus without complications; Z79.84 Long term (current) use of oral hypoglycemic drugs
CPT/HCPCS: 36430; 76705; 80048; 80053; 82105; 82948; 83690; 83735; 85014; 85018; 85025; 85027; 85610; 85730; 86850; 86900; 86901; 86902; 86920; 86922; 99285; C9113; J1170; J1815; J1940; J2354; J2405; J7040; J7050; P9016; P9035

== ENCOUNTER → 2016-09-14 | Outpatient (CLI) | payer OTHER ==
[~2016-09-14] MED LIST changes: -BENZ100 PO; -FURO1TAB62 PO; +FURO20TA PO; +METF500T PO; +NADO20TA PO; +ONETAB22 PO; +PANT40TA3 PO; +PROM12.54 PO; -PROM25TA5 PO; -PROT40TA PO; -SUCR1TAB PO
[2016-09-14 14:06] LABS: BASOPHIL % 0.4 % (0.0-2.0); EOSINOPHIL # 0.1 TH/MM3 (0-0.4); EOSINOPHIL % 2.1 % (0.0-4.0); HEMATOCRIT 30.1 % (35.0-46.0); LYMPH % 21.1 % (9.0-44.0); LYMPHOCYTE # 0.6 TH/MM3 (1.0-4.8); MEAN CELL VOLUME 79.4 FL (80.0-100.0); MEAN CORPUSCULAR HEMOGLOBIN 24.6 PG (27.0-34.0); MONO % 6.8 % (0.0-8.0); NEUT % 69.6 % (16.0-70.0); PLATELET COUNT 36 TH/MM3 (150-450); RED BLOOD COUNT 3.79 MIL/MM3 (4.00-5.30); RED CELL DISTRIBUTION WIDTH 22.8 % (11.6-17.2); WHITE BLOOD COUNT 2.9 TH/MM3 (4.0-11.0)
[2016-09-14 14:12] LABS: HEMO FLAGS AUTO DIFF
[2016-09-14 15:09] LABS: OVALOCYTES 3+ (NORMAL); PLATELET ESTIMATE SMEAR LOW (NORMAL); PLATELET MORPHOLOGY ENLARGED (NORMAL); SCAN/DIFF AUTO DIFF CONFIRMED; TEARDROP RBCS 1+ (NORMAL)
== END ==
LOC: CLAB 13:40
PROVIDERS: ATTEND Physician Assistant Medical
DX: D69.6 Thrombocytopenia, unspecified (principal)
CPT/HCPCS: 36415; 85025

== ENCOUNTER → 2016-09-22 | Outpatient (CLI) | payer OTHER ==
[2016-09-22 09:22] LABS: AUTOMATED NEUTROPHIL # 1.9 TH/MM3 (1.8-7.7); BASOPHIL % 0.7 % (0.0-2.0); EOSINOPHIL # 0.1 TH/MM3 (0-0.4); EOSINOPHIL % 3.1 % (0.0-4.0); HEMATOCRIT 27.2 % (35.0-46.0); LYMPH % 21.8 % (9.0-44.0); LYMPHOCYTE # 0.6 TH/MM3 (1.0-4.8); MEAN CELL VOLUME 79.6 FL (80.0-100.0); MEAN CORPUSCULAR HEMOGLOBIN 26.2 PG (27.0-34.0); MEAN CORPUSCULAR HGB CONC 32.9 % (32.0-36.0); MONO % 9.3 % (0.0-8.0); NEUT % 65.1 % (16.0-70.0); PLATELET COUNT 47 TH/MM3 (150-450); RED BLOOD COUNT 3.42 MIL/MM3 (4.00-5.30); RED CELL DISTRIBUTION WIDTH 21.1 % (11.6-17.2); WHITE BLOOD COUNT 2.9 TH/MM3 (4.0-11.0)
[2016-09-22 09:26] LABS: HEMO FLAGS AUTO DIFF
[2016-09-22 09:59] LABS: OVALOCYTES 3+ (NORMAL); PLATELET ESTIMATE SMEAR LOW (NORMAL); PLATELET MORPHOLOGY NORMAL (NORMAL); SCAN/DIFF AUTO DIFF CONFIRMED; TEARDROP RBCS 1+ (NORMAL)
== END ==
LOC: CLAB 08:45
PROVIDERS: ATTEND Family Medicine
DX: D69.6 Thrombocytopenia, unspecified (principal)
CPT/HCPCS: 36415; 85025

== ENCOUNTER → 2016-09-28 | Outpatient (CLI) | payer OTHER ==
[2016-09-28 11:31] LABS: AUTOMATED NEUTROPHIL # 2.2 TH/MM3 (1.8-7.7); BASOPHIL % 0.2 % (0.0-2.0); EOSINOPHIL # 0.1 TH/MM3 (0-0.4); EOSINOPHIL % 3.3 % (0.0-4.0); HEMATOCRIT 28.1 % (35.0-46.0); LYMPH % 21.8 % (9.0-44.0); LYMPHOCYTE # 0.7 TH/MM3 (1.0-4.8); MEAN CELL VOLUME 79.4 FL (80.0-100.0); MEAN CORPUSCULAR HEMOGLOBIN 25.1 PG (27.0-34.0); MEAN CORPUSCULAR HGB CONC 31.6 % (32.0-36.0); MONO % 7.5 % (0.0-8.0); NEUT % 67.2 % (16.0-70.0); PLATELET COUNT 54 TH/MM3 (150-450); RED BLOOD COUNT 3.54 MIL/MM3 (4.00-5.30); RED CELL DISTRIBUTION WIDTH 20.7 % (11.6-17.2); WHITE BLOOD COUNT 3.2 TH/MM3 (4.0-11.0)
[2016-09-28 11:32] LABS: HEMO FLAGS AUTO DIFF
[2016-09-28 12:12] LABS: OVALOCYTES 3+ (NORMAL); PLATELET ESTIMATE SMEAR LOW (NORMAL); PLATELET MORPHOLOGY NORMAL (NORMAL); SCAN/DIFF AUTO DIFF CONFIRMED
== END ==
LOC: CLAB 10:56
PROVIDERS: ATTEND Family Medicine
DX: D69.6 Thrombocytopenia, unspecified (principal)
CPT/HCPCS: 36415; 85025

== ENCOUNTER → 2016-10-05 | Outpatient (CLI) | payer OTHER ==
[2016-10-05 09:01] LABS: AUTOMATED NEUTROPHIL # 1.8 TH/MM3 (1.8-7.7); BASOPHIL % 0.2 % (0.0-2.0); EOSINOPHIL # 0.1 TH/MM3 (0-0.4); EOSINOPHIL % 3.3 % (0.0-4.0); HEMATOCRIT 26.3 % (35.0-46.0); LYMPH % 24.1 % (9.0-44.0); LYMPHOCYTE # 0.7 TH/MM3 (1.0-4.8); MEAN CELL VOLUME 79.3 FL (80.0-100.0); MEAN CORPUSCULAR HEMOGLOBIN 24.5 PG (27.0-34.0); MEAN CORPUSCULAR HGB CONC 30.9 % (32.0-36.0); NEUT % 63.4 % (16.0-70.0); PLATELET COUNT 56 TH/MM3 (150-450); RED BLOOD COUNT 3.31 MIL/MM3 (4.00-5.30); WHITE BLOOD COUNT 2.9 TH/MM3 (4.0-11.0)
[2016-10-05 09:03] LABS: HEMO FLAGS AUTO DIFF
[2016-10-05 09:45] LABS: OVALOCYTES 3+ (NORMAL)
[2016-10-05 09:46] LABS: PLATELET ESTIMATE SMEAR LOW (NORMAL); PLATELET MORPHOLOGY NORMAL (NORMAL); SCAN/DIFF AUTO DIFF CONFIRMED
== END ==
LOC: CLAB 08:41
PROVIDERS: ATTEND Family Medicine
DX: D69.6 Thrombocytopenia, unspecified (principal)
CPT/HCPCS: 36415; 85025

== ENCOUNTER → 2016-10-08 | Outpatient (CLI) | payer OTHER ==
[2016-10-08 11:25] LABS: TRANSFERRIN IRON PROFILE 272 MG/DL (200-360)
[2016-10-13 10:04] LABS: HEREDITARY HEMOCHROM INTERP ND (())
== END ==
LOC: CLAB 10:16
DX: D50.9 Iron deficiency anemia, unspecified (principal); K74.60 Unspecified cirrhosis of liver; D61.818 Other pancytopenia
CPT/HCPCS: 36415; 81256; 82103; 82390; 83540; 83550

== ENCOUNTER → 2016-10-12 | Outpatient (CLI) | payer OTHER ==
[2016-10-12 12:05] LABS: AUTOMATED NEUTROPHIL # 2.9 TH/MM3 (1.8-7.7); BASOPHIL % 0.4 % (0.0-2.0); EOSINOPHIL # 0.2 TH/MM3 (0-0.4); EOSINOPHIL % 3.5 % (0.0-4.0); HEMATOCRIT 23.9 % (35.0-46.0); LYMPH % 23.7 % (9.0-44.0); LYMPHOCYTE # 1.1 TH/MM3 (1.0-4.8); MEAN CELL VOLUME 75.6 FL (80.0-100.0); MEAN CORPUSCULAR HEMOGLOBIN 24.6 PG (27.0-34.0); MEAN CORPUSCULAR HGB CONC 32.6 % (32.0-36.0); MONO % 7.2 % (0.0-8.0); NEUT % 65.2 % (16.0-70.0); PLATELET COUNT 62 TH/MM3 (150-450); RED BLOOD COUNT 3.17 MIL/MM3 (4.00-5.30); WHITE BLOOD COUNT 4.5 TH/MM3 (4.0-11.0)
[2016-10-12 12:20] LABS: HEMO FLAGS AUTO DIFF
[2016-10-12 13:21] LABS: ACANTHOCYTES OCC (NORMAL); KERATOCYTES OCC (NORMAL); OVALOCYTES 2+ (NORMAL)
[2016-10-12 13:22] LABS: PLATELET ESTIMATE SMEAR LOW (NORMAL); PLATELET MORPHOLOGY NORMAL (NORMAL)
[2016-10-12 13:23] LABS: SCAN/DIFF AUTO DIFF CONFIRMED
[2016-10-12 13:47] LABS: HEMOGLOBIN A1a 0.7 %; HEMOGLOBIN A1b 1.4 %; HEMOGLOBIN Ao 85.4 %; HEMOGLOBIN LA1C 2.7 %; HEMOGLOBIN P3 5.1 %
== END ==
LOC: CLAB 10:46
PROVIDERS: ATTEND Family Medicine
DX: D69.6 Thrombocytopenia, unspecified (principal); R73.9 Hyperglycemia, unspecified
CPT/HCPCS: 36415; 83036; 85025

== ENCOUNTER → 2016-10-19 | Outpatient (CLI) | payer OTHER ==
[2016-10-19 07:30] LABS: AUTOMATED NEUTROPHIL # 2.8 TH/MM3 (1.8-7.7); BASOPHIL % 0.5 % (0.0-2.0); EOSINOPHIL # 0.2 TH/MM3 (0-0.4); EOSINOPHIL % 3.5 % (0.0-4.0); HEMATOCRIT 25.1 % (35.0-46.0); LYMPH % 25.3 % (9.0-44.0); LYMPHOCYTE # 1.1 TH/MM3 (1.0-4.8); MEAN CELL VOLUME 74.7 FL (80.0-100.0); MEAN CORPUSCULAR HEMOGLOBIN 24.4 PG (27.0-34.0); MEAN CORPUSCULAR HGB CONC 32.7 % (32.0-36.0); MONO % 7.8 % (0.0-8.0); NEUT % 62.9 % (16.0-70.0); PLATELET COUNT 61 TH/MM3 (150-450); RED BLOOD COUNT 3.36 MIL/MM3 (4.00-5.30); RED CELL DISTRIBUTION WIDTH 21.1 % (11.6-17.2); WHITE BLOOD COUNT 4.5 TH/MM3 (4.0-11.0)
[2016-10-19 07:35] LABS: HEMO FLAGS AUTO DIFF
[2016-10-19 08:10] LABS: KERATOCYTES OCC (NORMAL); OVALOCYTES 3+ (NORMAL); PLATELET ESTIMATE SMEAR LOW (NORMAL); PLATELET MORPHOLOGY NORMAL (NORMAL); SCAN/DIFF AUTO DIFF CONFIRMED
== END ==
LOC: CLAB 06:59
PROVIDERS: ATTEND Family Medicine
DX: D69.6 Thrombocytopenia, unspecified (principal)
CPT/HCPCS: 36415; 85025

== ENCOUNTER 2016-10-22 13:42 | Inpatient (IN) | payer OTHER ==
[~2016-10-22] VITALS: Ht 162.6 cm; Wt 83.0 kg
[2016-10-22] VITALS (9 sets, daily range): BP systolic 113–180; BP diastolic 49–62; PULSE 59–62; RESP 15–18; TEMP 96.4–98.1; O2SAT 94–100
[~2016-10-22 13:42] MED LIST changes: -METF500T PO; -ONETAB22 PO; -PROM12.54 PO
--- NOTE | 2016-10-22 13:54 | PD ---
HPI Chief Complaint: GI Complaint Time Seen by Provider: 13:51 Travel History International Travel<30 days: No Contact w/Intl Traveler<30days: No Traveled to known affect area: No History of Present Illness HPI 56 year-old woman with a history of advanced cirrhosis, GI bleed with esophageal varices and gastric angiectasia, pancytopenia, and diabetes who presents to the emergency department with weakness, lightheadedness, fatigue, and dark stools. She follows with her primary Dr. Gray, as well as with gastroenterology Dr. Hartman, and hematology Dr. Roberts. She's had banding of esophageal varices in the past, and recently was admitted in June with GI bleed and melena and found to have bleeding angiectasia in the gastric antrum as well as small esophageal varices of the distal esophagus. S she was admitted again in August with GI bleeding and found to have portal gastropathy as well as the same angiectasia. She is on furosemide 20 mg daily, as well as spironolactone 25 mg daily for edema. She is on metformin and glipizide for her diabetes. She is also on pantoprazole. She was in her usual state of health. She received an iron transfusion yesterday. Starting yesterday she started having worsening dizziness, lightheadedness, shaky feeling. The cervical 8 PM last night. She started noticing dark colored stools today. No nausea or vomiting. No chest pain. Some slight shortness of breath. She gets occasional hot flashes as well. She also gets some mild right sided abdominal pain more posteriorly, which is unusual for her. No other complaints. History Past Medical History Narrative Medical Liver cirrhosis History of esophageal varices, gastric angiectasia, and GI bleed Anemia/pancytopenia Diabetes CHF : 2 Para: 2 Social History Alcohol Use: No (hx of use denies at present) Tobacco Use: No Allergies-Medications (Allergen,Severity, Reaction): Coded Allergies: Amoxicillin (Verified Allergy, Unknown, HIVES, 10/22/16) Morphine (Verified Allergy, Unknown, HIVES, 10/22/16) Reported Meds & Prescriptions Reported Meds & Active Scripts Active Glipizide 5 Mg Tab 5 Mg PO DAILY Take 30 minutes before a meal Glucophage (Metformin HCl) 500 Mg Tab 2 Tab PO BIDPC With meals Reported Nadolol 20 Mg Tab 20 Mg PO DAILY Spironolactone 25 Mg Tab 25 Mg PO BID Furosemide 20 Mg Tab 40 Mg PO DAILY Pantoprazole (Pantoprazole Sodium) 40 Mg Tab 80 Mg PO BID Multivitamin Women (Multiple Vitamins W/ Minerals) 1 Tab Tab 1 Tab PO DAILY B Complex (B-Complex Vitamins) 1 Cap 1 Cap PO DAILY Review of Systems Except as stated in HPI: all other systems reviewed are Neg Physical Exam Narrative GENERAL: Well-appearing 56 year-old woman, no acute distress. SKIN: Focused skin assessment warm/dry. HEAD: Atraumatic. Normocephalic. EYES: Pupils equal and round. No scleral icterus. No injection or drainage. Some conjunctival pallor. ENT: No nasal bleeding or discharge. Mucous membranes pink and moist. NECK: Trachea midline. No JVD. CARDIOVASCULAR: Regular rate and rhythm. No murmur appreciated. RESPIRATORY: No accessory muscle use. Clear to auscultation. Breath sounds equal bilaterally. GASTROINTESTINAL: Abdomen soft, non-tender, nondistended. Hepatic and splenic margins not palpable. MUSCULOSKELETAL: No obvious deformities. No edema. RECTAL: Dark black stool in the rectal vault. Guaiac positive. NEUROLOGICAL: Awake and alert. No obvious cranial nerve deficits. Motor grossly within normal limits. Normal speech. PSYCHIATRIC: Appropriate mood and affect; insight and judgment normal. Data Data Last Documented VS Vital Signs Date Time Temp Pulse Resp B/P Pulse Ox O2 Delivery O2 Flow Rate FiO2 10/22/16 14:53 61 15 180/55 97 Room Air 10/22/16 13:47 97.9 Orders Complete Blood Count With Diff (10/22/16 13:59) Comprehensive Metabolic Panel (10/22/16 13:59) Act Partial Throm Time (Ptt) (10/22/16 13:59) Prothrombin Time / Inr (Pt) (10/22/16 13:59) Iv Access Insert/Monitor (10/22/16 13:59) Type And Screen (10/22/16 14:21) Sodium Chlor 0.9% 1000 Ml Inj (Ns 1000 M (10/22/16 14:30) Red Blood Cells (Rbc) (10/22/16 15:11) Admit To Inpatient (10/22/16 ) Vital Signs (Adult) Q4H (10/22/16 15:35) Activity Oob With Assistance (10/22/16 15:35) Gravity Manager / Telemetry .CONTINUOUS (10/22/16 15:35) Diet Npo (10/22/16 Dinner) Sodium Chlor 0.9% 1000 Ml Inj (Ns 1000 M (10/22/16 15:35) Sodium Chloride 0.9% Flush (Ns Flush) (10/22/16 15:45) Sodium Chloride 0.9% Flush (Ns Flush) (10/22/16 21:00) Ondansetron Inj (Zofran Inj) (10/22/16 15:45) Comprehensive Metabolic Panel (10/23/16 06:00) Complete Blood Count With Diff (10/23/16 06:00) Scd Bilateral/Knee High LATANYA.BID (10/22/16 15:35) Naloxone Inj (Narcan Inj) (10/22/16 15:45) Inpatient Certification (10/22/16 ) Admit Order (Ed Use Only) (10/22/16 ) Labs Laboratory Tests Test 10/22/16 14:15 White Blood Count 5.8 TH/MM3 Red Blood Count 3.37 MIL/MM3 Hemoglobin 8.1 GM/DL Hematocrit 26.0 % Mean Corpuscular Volume 77.2 FL Mean Corpuscular Hemoglobin 24.1 PG Mean Corpuscular Hemoglobin 31.3 % Concent Red Cell Distribution Width 21.8 % Platelet Count 63 TH/MM3 Mean Platelet Volume 9.2 FL Neutrophils (%) (Auto) 64.8 % Lymphocytes (%) (Auto) 24.0 % Monocytes (%) (Auto) 6.2 % Eosinophils (%) (Auto) 3.3 % Basophils (%) (Auto) 1.7 % Neutrophils # (Auto) 3.7 TH/MM3 Lymphocytes # (Auto) 1.4 TH/MM3 Monocytes # (Auto) 0.4 TH/MM3 Eosinophils # (Auto) 0.2 TH/MM3 Basophils # (Auto) 0.1 TH/MM3 CBC Comment AUTO DIFF Differential Comment AUTO DIFF CONFIRMED Platelet Estimate LOW Platelet Morphology Comment NORMAL Target Cells 1+ Ovalocytes 3+ Acanthocytes 1+ Keratocytes 1+ Prothrombin Time 11.5 SEC Prothromb Time International 1.0 RATIO Ratio Activated Partial 22.5 SEC Thromboplast Time Sodium Level 141 MEQ/L Potassium Level 4.1 MEQ/L Chloride Level 109 MEQ/L Carbon Dioxide Level 23.9 MEQ/L Anion Gap 8 MEQ/L Blood Urea Nitrogen 12 MG/DL Creatinine 0.90 MG/DL Estimat Glomerular Filtration 64 ML/MIN Rate Random Glucose 228 MG/DL Calcium Level 8.5 MG/DL Total Bilirubin 2.7 MG/DL Aspartate Amino Transf 21 U/L (AST/SGOT) Alanine Aminotransferase 22 U/L (ALT/SGPT) Alkaline Phosphatase 78 U/L Total Protein 6.4 GM/DL Albumin 3.4 GM/DL [facility] Medical Decision Making Medical Screen Exam Complete: Yes Emergency Medical Condition: Yes Interpretation(s) LABS: CBC remarkable for hemoglobin 8.1, microcytic indices, platelet count 63 CMP elevated total bili, elevated glucose Coags unremarkable Differential Diagnosis GI bleed, upper GI bleed, anemia, electrolyte abnormality, occult infection, other Narrative Course Medical decision-making INITIAL: 56 year-old woman with history of upper GI bleed and anemia presents emergency Department with lightheadedness dizziness, evidence of anemia, with dark black guaiac positive stools. Likely recurrent upper GI bleeding. We'll check labs, type and screen, reassess. Procedures Procedure Narrative Ultrasound-guided peripheral IV: Patient with history of difficult IV access, need for labs and IV access. Right arm was prepped with chlorhexidine. Using real-time ultrasound, 20-gauge Angiocath was placed in the right forearm. Labs were obtained. Sterile dressing applied. Patient tolerated well. HemaPrompt Point of Care Internal Pos. & Neg. Controls: Passed Fecal Specimen Occult Blood: Positive Diagnosis Primary Impression: Gastrointestinal hemorrhage with melena Admitting Information Admitting Physician Requests: Admit Tra Gonzalez MD October 22, 2016 13:54
[2016-10-22 14:30] LABS: AUTOMATED NEUTROPHIL # 3.7 TH/MM3 (1.8-7.7); BASOPHIL # 0.1 TH/MM3 (0-0.2); BASOPHIL % 1.7 % (0.0-2.0); EOSINOPHIL # 0.2 TH/MM3 (0-0.4); EOSINOPHIL % 3.3 % (0.0-4.0); LYMPHOCYTE # 1.4 TH/MM3 (1.0-4.8); MEAN CELL VOLUME 77.2 FL (80.0-100.0); MEAN CORPUSCULAR HEMOGLOBIN 24.1 PG (27.0-34.0); MEAN CORPUSCULAR HGB CONC 31.3 % (32.0-36.0); MONO % 6.2 % (0.0-8.0); NEUT % 64.8 % (16.0-70.0); PLATELET COUNT 63 TH/MM3 (150-450); RED BLOOD COUNT 3.37 MIL/MM3 (4.00-5.30); RED CELL DISTRIBUTION WIDTH 21.8 % (11.6-17.2); WHITE BLOOD COUNT 5.8 TH/MM3 (4.0-11.0)
[2016-10-22] MEDS ORDERED: SODIUM CHLOR 0.9% 1000 ML INJ 1,000 ML IV SCH (14:30)
[2016-10-22 14:39] LABS: HEMO FLAGS AUTO DIFF
[2016-10-22 14:41] LABS: CHLORIDE 109 MEQ/L (98-107); POTASSIUM 4.1 MEQ/L (3.5-5.1); SODIUM (NA) 141 MEQ/L (136-145)
[2016-10-22 14:44] LABS: ANION GAP 8 MEQ/L (5-15); BICARBONATE 23.9 MEQ/L (21.0-32.0); BLOOD UREA NITROGEN 12 MG/DL (7-18)
[2016-10-22 14:47] LABS: ALT (GPT) 22 U/L (10-53); AST (GOT) 21 U/L (15-37)
[2016-10-22 14:48] LABS: GLOMERULAR FILTRATION RATE 64 ML/MIN (>89)
[2016-10-22 14:49] LABS: TOTAL BILIRUBIN ADULT 2.7 MG/DL (0.2-1.0)
[2016-10-22 14:50] LABS: ALKALINE PHOSPHATASE 78 U/L (45-117)
[2016-10-22 15:05] LABS: ACANTHOCYTES 1+ (NORMAL); KERATOCYTES 1+ (NORMAL); OVALOCYTES 3+ (NORMAL); PLATELET ESTIMATE SMEAR LOW (NORMAL); PLATELET MORPHOLOGY NORMAL (NORMAL); SCAN/DIFF AUTO DIFF CONFIRMED; TARGET CELLS 1+ (NORMAL)
[2016-10-22 15:10] LABS: APTT (PATIENT) 22.5 SEC (24.3-30.1); PROTHROMBIN TIME - PATIENT 11.5 SEC (9.8-11.6)
[2016-10-22] MEDS ORDERED: SODIUM CHLORIDE 0.9% FLUSH 10 ML FLUSH IV FLUSH PRN (15:45)
[2016-10-22] MEDS ORDERED: NALOXONE HCL 0.4 MG/ML AMP IV PRN (15:45)
[2016-10-22] MEDS: SODIUM CHLOR 0.9% 1000 ML INJ 1,000 ML IV SCH ×2 (16:30→17:47)
[2016-10-22] MEDS: SODIUM CHLORIDE 0.9% FLUSH 10 ML FLUSH IV FLUSH SCH (21:00)
--- NOTE | 2016-10-22 21:27 | HHI.HP ---
[facility] Shzaia Gray MD Admission Diagnosis GI bleed Diagnoses: Chief Complaint: Weakness, lightheadedness. Travel History International Travel<30 Days: No Contact w/Intl Traveler <30 Da: No Traveled to Known Affected Are: No History of Present Illness 56 year-old woman with a history of advanced cirrhosis, GI bleed with esophageal varices and gastric angiectasia, pancytopenia, and diabetes who presents to the emergency department with weakness, lightheadedness, fatigue, and dark stools. She follows with her primary Dr. Gray, as well as with gastroenterology Dr. Nguyen, and hematology Dr. Roberts. She's had banding of esophageal varices in the past, and recently was admitted in June with GI bleed and melena and found to have bleeding angiectasia in the gastric antrum as well as small esophageal varices of the distal esophagus. S she was admitted again in August with GI bleeding and found to have portal gastropathy as well as the same angiectasia. She is on furosemide 20 mg daily, as well as spironolactone 25 mg daily for edema. She is on metformin and glipizide for her diabetes. She is also on pantoprazole. She was in her usual state of health. She received an iron transfusion yesterday. Starting yesterday she started having worsening dizziness, lightheadedness, shaky feeling. The cervical 8 PM last night. She started noticing dark colored stools today. No nausea or vomiting. No chest pain. Some slight shortness of breath. She gets occasional hot flashes as well. She also gets some mild right sided abdominal pain more posteriorly, which is unusual for her. No other complaints. Review of Systems Except as stated in HPI: all other systems reviewed are Neg Past Family Social History Past Medical History Liver cirrhosis History of esophageal varices, gastric angiectasia, and GI bleed Anemia/pancytopenia Diabetes CHF Past Surgical History Cholecystectomy Hysterectomy Right knee surgery Body ligation Reported Medications Reported Meds & Active Scripts Active Glipizide 5 Mg Tab 5 Mg PO DAILY Take 30 minutes before a meal Glucophage (Metformin HCl) 500 Mg Tab 2 Tab PO BIDPC With meals Reported Nadolol 20 Mg Tab 20 Mg PO DAILY Spironolactone 25 Mg Tab 25 Mg PO BID Furosemide 20 Mg Tab 40 Mg PO DAILY Pantoprazole (Pantoprazole Sodium) 40 Mg Tab 80 Mg PO BID Multivitamin Women (Multiple Vitamins W/ Minerals) 1 Tab Tab 1 Tab PO DAILY B Complex (B-Complex Vitamins) 1 Cap 1 Cap PO DAILY Allergies: Coded Allergies: Amoxicillin (Verified Allergy, Unknown, HIVES, 10/22/16) Morphine (Verified Allergy, Unknown, HIVES, 10/22/16) Family History Mother lung cancer she was a smoker Father SD at the age of 60 Brother. Skin cancer Social History Occasional alcohol use in the past currently not using any alcohol. Denies tobacco use or illicit drug use. Physical Exam Vital Signs Vital Signs Date Time Temp Pulse Resp B/P Pulse Ox O2 Delivery O2 Flow Rate FiO2 10/22/16 18:40 97.2 62 16 113/49 10/22/16 18:23 98.1 59 18 126/62 10/22/16 17:05 98.1 10/22/16 17:02 59 18 126/62 100 10/22/16 14:53 61 15 180/55 97 Room Air 10/22/16 13:47 97.9 60 16 115/55 100 Physical Exam GENERAL: This is a pleasant 56-year-old female with BMI of 30, well-nourished, well-developed patient, in no apparent distress. SKIN: Pale. No rashes, ecchymoses or lesions. Cool and dry. HEAD: Atraumatic. Normocephalic. No temporal or scalp tenderness. EYES: Pupils equal round and reactive. Extraocular motions intact. No scleral icterus. No injection or drainage. ENT: Nose without bleeding, purulent drainage or septal hematoma. Throat without erythema, tonsillar hypertrophy or exudate. Uvula midline. Airway patent. NECK: Trachea midline. No JVD or lymphadenopathy. Supple, nontender, no meningeal signs. CARDIOVASCULAR: Regular rate and rhythm without murmurs, gallops, or rubs. RESPIRATORY: Clear to auscultation. Breath sounds equal bilaterally. No wheezes , rales, or rhonchi. GASTROINTESTINAL: Abdomen soft, obese, non-tender, nondistended. No hepato- splenomegaly, or palpable masses. No guarding. MUSCULOSKELETAL: Extremities without clubbing, cyanosis, or edema. No joint tenderness, effusion, or edema noted. No calf tenderness. Negative Homans sign bilaterally. NEUROLOGICAL: Awake and alert. Cranial nerves II through XII intact. Motor and sensory grossly within normal limits. Five out of 5 muscle strength in all muscle groups. Normal speech. Laboratory Laboratory Tests Test 10/22/16 10/22/16 10/22/16 14:15 14:25 15:20 White Blood Count 5.8 Red Blood Count 3.37 Hemoglobin 8.1 Hematocrit 26.0 Mean Corpuscular Volume 77.2 Mean Corpuscular Hemoglobin 24.1 Mean Corpuscular Hemoglobin 31.3 Concent Red Cell Distribution Width 21.8 Platelet Count 63 Mean Platelet Volume 9.2 Neutrophils (%) (Auto) 64.8 Lymphocytes (%) (Auto) 24.0 Monocytes (%) (Auto) 6.2 Eosinophils (%) (Auto) 3.3 Basophils (%) (Auto) 1.7 Neutrophils # (Auto) 3.7 Lymphocytes # (Auto) 1.4 Monocytes # (Auto) 0.4 Eosinophils # (Auto) 0.2 Basophils # (Auto) 0.1 CBC Comment AUTO DIFF Differential Comment AUTO DIFF CONFIRMED Platelet Estimate LOW Platelet Morphology Comment NORMAL Target Cells 1+ Ovalocytes 3+ Acanthocytes 1+ Keratocytes 1+ Prothrombin Time 11.5 Prothromb Time International 1.0 Ratio Activated Partial 22.5 Thromboplast Time Sodium Level 141 Potassium Level 4.1 Chloride Level 109 Carbon Dioxide Level 23.9 Anion Gap 8 Blood Urea Nitrogen 12 Creatinine 0.90 Estimat Glomerular Filtration 64 Rate Random Glucose 228 Calcium Level 8.5 Total Bilirubin 2.7 Aspartate Amino Transf 21 (AST/SGOT) Alanine Aminotransferase 22 (ALT/SGPT) Alkaline Phosphatase 78 Total Protein 6.4 Albumin 3.4 Blood Type A POSITIVE Antibody Screen POSITIVE Crossmatch Leukocyte-Reduced Red Blood Cells Blood Bank Comment Result Diagram: 10/22/16 1415 10/22/16 1415 Assessment and Plan Assessment and Plan 66-year-old female with past medical history of advanced liver cirrhosis, GI bleed with esophageal varices and gastric angiectasia, pancytopenia, and diabetes who presents to the emergency department with weakness, lightheadedness , fatigue, and dark stools. Guaiac + stool in the ED Acute GI bleed. Guaiac + stool in the ED. Symptomatic iron deficiency anemia, with multiple blood transfusions in the past as well as infusion of iron. Follows with Dr Rodriguez hem/onc as OP asn GI Dr Pete Thrombocytopenia PLT 63. Monitor Hemoglobin 8.1 Transfuse 2 U PRBC as patient with symptomatic anemia Consult GI specialist Gentle IVF as patient with liver cirrhosis and CHF stable at this time. Hold home meds for now, and monitor BP. Nadolol 20 Mg DAILY, Spironolactone 25 Mg BID, Furosemide 20 Mg DAILY. DM 2. Hold PO home meds. Start ISS , accuchecks DVT ppx SCD/TEDs. Chemical ppx CI at this time 2/2 active bleeding Discussed Condition With patient, nurse, family at bedside Physician Certification 2 Midnight Certification Type: Admission for Inpatient Services Order for Inpatient Services The services are ordered in accordance with Medicare regulations or non- Medicare payer requirements, as applicable. In the case of services not specified as inpatient-only, they are appropriately provided as inpatient services in accordance with the 2-midnight benchmark. Estimated LOS (days): 3 days is the estimated time the patient will need to remain in the hospital, assuming treatment plan goals are met and no additional complications. Post-Hospital Plan: Home Es Lay MD October 22, 2016 21:27
[2016-10-22] MEDS ORDERED: DEXTROSE 50% IN WATER 50 ML VIAL(D50) IV PRN (21:45)
[2016-10-22] MEDS ORDERED: GLUCAGON 1 MG/ML VIAL OTHER PRN (21:45)
--- NOTE | 2016-10-22 21:46 | HHI.HP ---
[facility] Primary [facility] Physician Shazia Gray MD Admission Diagnosis GI bleed Diagnoses: (1) GI bleeding Diagnosis: Principal (2) Gastrointestinal hemorrhage with melena Diagnosis: Principal (3) Diabetes Diagnosis: Secondary (4) Cirrhosis Diagnosis: Secondary (5) Acute blood loss anemia Diagnosis: Principal (6) Chronic anemia Diagnosis: Secondary (7) Portal hypertension with esophageal varices Diagnosis: Principal Travel History International Travel<30 Days: No Contact w/Intl Traveler <30 Da: No Traveled to Known Affected Are: No History of Present Illness Mrs. Aiken is a 56 year old female. She has a history of Cirrhosis. Secondary to cirrhosis she has an associated portal hypertension with esophageal varices, she has recurrent problems with upper GI Bleeding. As an outpatient she reports to follow with her die storage clerk Dr. Pete. Chronic anemia is present and she had an iron infusion yesterday. She came to the ER today with Melena. She has been experiencing symptomatic anemia with lightheadedness, dizziness, fatigue, and feeling cold. No chest pain reported. She cites that from 2014, when she was first diagnosed with cirrhosis, she has had numerous blood transfusions and several hospitalizations. Other health conditions are DM2 and OA. CHF is reported, but her last echocardiogram from June 2015 shows no CHF. Chronic lower extremity edema is present and related to portal hypertension. Cirrhosis is of an uncertain etiology, but may be related to autoimmunity vs. fatty liver, she has no history of alcohol abuse or hepatitis. She has no complaints of nausea or epigastric pain when seen in the ER. No other complaints this evening. Review of Systems Constitutional: DENIES: Fatigue, Fever, Chills Eyes: DENIES: Blurred vision, Diplopia Ears, nose, mouth, throat: DENIES: Hearing loss, Vertigo Respiratory: DENIES: Cough, Wheezing, Shortness of breath Cardiovascular: DENIES: Chest pain, Palpitations, Syncope Gastrointestinal: COMPLAINS OF: Black stools, Bloody stools, DENIES: Abdominal pain, Diarrhea Musculoskeletal: DENIES: Joint pain, Muscle aches Integumentary: DENIES: Abnormal pigmentation Hematologic/lymphatic: DENIES: Bruising Immunologic/allergic: DENIES: Eczema Neurologic: DENIES: Abnormal gait Psychiatric: DENIES: Anxiety, Confusion Past Family Social History Past Medical History Cirrhosis Portal Hypertension Esophageal Varices DM2 Chronic Anemia Hx of GI Bleeds (recurrent, upper) Past Surgical History Cholecystectomy Hysterectomy Right Knee Arthroscopy Reported Medications Reported Meds & Active Scripts Active Glipizide 5 Mg Tab 5 Mg PO DAILY Take 30 minutes before a meal Glucophage (Metformin HCl) 500 Mg Tab 2 Tab PO BIDPC With meals Reported Nadolol 20 Mg Tab 20 Mg PO DAILY Spironolactone 25 Mg Tab 25 Mg PO BID Furosemide 20 Mg Tab 40 Mg PO DAILY Pantoprazole (Pantoprazole Sodium) 40 Mg Tab 80 Mg PO BID Multivitamin Women (Multiple Vitamins W/ Minerals) 1 Tab Tab 1 Tab PO DAILY B Complex (B-Complex Vitamins) 1 Cap 1 Cap PO DAILY Allergies: Coded Allergies: Amoxicillin (Verified Allergy, Unknown, HIVES, 10/22/16) Morphine (Verified Allergy, Unknown, HIVES, 10/22/16) Active Ordered Medications Administered Medications Medications (Trade) Dose Ordered Sig/Jc Route PRN Reason Start Time Stop Time Status Last Admin Dose Admin Sodium Chloride (NS 1000 ml Inj) 1,000 ml @ 100 mls/hr Q10H IV 10/22/16 15:35 10/22/16 17:47 Family History none Social History No alcohol No smoking No drug abuse Physical Exam Vital Signs Vital Signs Date Time Temp Pulse Resp B/P Pulse Ox O2 Delivery O2 Flow Rate FiO2 10/22/16 18:40 97.2 62 16 113/49 10/22/16 18:23 98.1 59 18 126/62 10/22/16 17:05 98.1 10/22/16 17:02 59 18 126/62 100 10/22/16 14:53 61 15 180/55 97 Room Air 10/22/16 13:47 97.9 60 16 115/55 100 Physical Exam GENERAL: NAD, A&Ox3 SKIN: Warm and dry. Palor. HEAD: Normocephalic. EYES: No scleral icterus. No injection or drainage. NECK: Supple, trachea midline. No JVD or lymphadenopathy. CARDIOVASCULAR: Regular rate and rhythm without murmurs, gallops, or rubs. RESPIRATORY: Breath sounds equal bilaterally. No accessory muscle use. GASTROINTESTINAL: Abdomen soft, non-tender, nondistended. MUSCULOSKELETAL: No cyanosis, or edema. BACK: Nontender without obvious deformity. No CVA tenderness. Laboratory Laboratory Tests Test 10/22/16 10/22/16 10/22/16 14:15 14:25 15:20 White Blood Count 5.8 Red Blood Count 3.37 Hemoglobin 8.1 Hematocrit 26.0 Mean Corpuscular Volume 77.2 Mean Corpuscular Hemoglobin 24.1 Mean Corpuscular Hemoglobin 31.3 Concent Red Cell Distribution Width 21.8 Platelet Count 63 Mean Platelet Volume 9.2 Neutrophils (%) (Auto) 64.8 Lymphocytes (%) (Auto) 24.0 Monocytes (%) (Auto) 6.2 Eosinophils (%) (Auto) 3.3 Basophils (%) (Auto) 1.7 Neutrophils # (Auto) 3.7 Lymphocytes # (Auto) 1.4 Monocytes # (Auto) 0.4 Eosinophils # (Auto) 0.2 Basophils # (Auto) 0.1 CBC Comment AUTO DIFF Differential Comment AUTO DIFF CONFIRMED Platelet Estimate LOW Platelet Morphology Comment NORMAL Target Cells 1+ Ovalocytes 3+ Acanthocytes 1+ Keratocytes 1+ Prothrombin Time 11.5 Prothromb Time International 1.0 Ratio Activated Partial 22.5 Thromboplast Time Sodium Level 141 Potassium Level 4.1 Chloride Level 109 Carbon Dioxide Level 23.9 Anion Gap 8 Blood Urea Nitrogen 12 Creatinine 0.90 Estimat Glomerular Filtration 64 Rate Random Glucose 228 Calcium Level 8.5 Total Bilirubin 2.7 Aspartate Amino Transf 21 (AST/SGOT) Alanine Aminotransferase 22 (ALT/SGPT) Alkaline Phosphatase 78 Total Protein 6.4 Albumin 3.4 Blood Type A POSITIVE Antibody Screen POSITIVE Crossmatch Leukocyte-Reduced Red Blood Cells Blood Bank Comment Result Diagram: 10/22/16 1415 10/22/16 1415 Assessment and Plan Problem List: (1) GI bleeding ICD Code: K92.2 Status: Acute (2) Cirrhosis ICD Code: K74.60 Status: Acute (3) Diabetes ICD Code: E11.9 Status: Acute (4) Gastrointestinal hemorrhage with melena ICD Code: K92.1 Status: Acute (5) Acute blood loss anemia ICD Code: D62 Status: Acute (6) Chronic anemia ICD Code: D64.9 Status: Chronic (7) Portal hypertension with esophageal varices ICD Code: K76.6 Status: Acute Assessment and Plan Acute GI Bleed Acute Blood Loss Anemia on Chronic Anemia Likely from esophageal varices GI consulted NPO IV Hydration PRN Zofran Given her chronic anemia and likely delayed manifestation with active bleed in progress, she is ordered for two units transfusion of PRBCs Follow H/H overnight CBC in AM IV Protonix Cirrhosis Portal Hypertension Chronic lower extremity edema NPO for now resume PO treatments when bleeding resolved She may seek options for a liver transplant in the future DM2 NPO Follow blood sugars Insulin Sliding Scale DVT Prophylaxis SCDs Code Status Full Code Physician Certification 2 Midnight Certification Type: Admission for Inpatient Services Order for Inpatient Services The services are ordered in accordance with Medicare regulations or non- Medicare payer requirements, as applicable. In the case of services not specified as inpatient-only, they are appropriately provided as inpatient services in accordance with the 2-midnight benchmark. Estimated LOS (days): 2 days is the estimated time the patient will need to remain in the hospital, assuming treatment plan goals are met and no additional complications. Post-Hospital Plan: Home Joaquin Maldonado MD October 22, 2016 21:46
[2016-10-23] VITALS (10 sets, daily range): BP systolic 110–164; BP diastolic 54–84; PULSE 54–83; RESP 16–24; TEMP 96.4–98.7; O2SAT 96–100
[2016-10-23] MEDS ORDERED: HYDROmorphone HCL PF 1 MG/ML VIAL IV PUSH ONE (04:00)
[2016-10-23] MEDS: INSULIN ASPART SUPPLEMENTAL SCALE SQ SCH ×4 (07:00→20:27)
[2016-10-23 07:30] LABS: AUTOMATED NEUTROPHIL # 2.4 TH/MM3 (1.8-7.7); BASOPHIL % 0.8 % (0.0-2.0); EOSINOPHIL # 0.1 TH/MM3 (0-0.4); LYMPH % 29.7 % (9.0-44.0); LYMPHOCYTE # 1.2 TH/MM3 (1.0-4.8); MEAN CELL VOLUME 79.2 FL (80.0-100.0); MEAN CORPUSCULAR HEMOGLOBIN 26.1 PG (27.0-34.0); MONO % 6.6 % (0.0-8.0); NEUT % 59.9 % (16.0-70.0); PLATELET COUNT 36 TH/MM3 (150-450); RED BLOOD COUNT 3.53 MIL/MM3 (4.00-5.30); RED CELL DISTRIBUTION WIDTH 20.7 % (11.6-17.2)
[2016-10-23 07:31] LABS: CHLORIDE 114 MEQ/L (98-107); POTASSIUM 3.7 MEQ/L (3.5-5.1); SODIUM (NA) 146 MEQ/L (136-145)
[2016-10-23 07:34] LABS: HEMO FLAGS AUTO DIFF
[2016-10-23 07:35] LABS: ANION GAP 10 MEQ/L (5-15); BICARBONATE 22.5 MEQ/L (21.0-32.0)
[2016-10-23 07:56] LABS: ALKALINE PHOSPHATASE 70 U/L (45-117); ALT (GPT) 19 U/L (10-53); AST (GOT) 22 U/L (15-37); BLOOD UREA NITROGEN 12 MG/DL (7-18); GLOMERULAR FILTRATION RATE 79 ML/MIN (>89); TOTAL BILIRUBIN ADULT 6.3 MG/DL (0.2-1.0)
[2016-10-23 08:13] LABS: OVALOCYTES 2+ (NORMAL); PLATELET ESTIMATE SMEAR LOW (NORMAL); PLATELET MORPHOLOGY NORMAL (NORMAL); SCAN/DIFF AUTO DIFF CONFIRMED
[2016-10-23] MEDS: SODIUM CHLORIDE 0.9% FLUSH 10 ML FLUSH IV FLUSH SCH ×2 (09:00→20:26)
--- NOTE | 2016-10-23 11:14 | HHI.PR ---
Subjective Remarks Abdominal pain is improved. No nausea. No bloody bowel movements thus far today. No hematemesis. She has been transfused 2 units overnight. Hemoglobin is 9.2 this morning. Objective Vital Signs Date Time Temp Pulse Resp B/P Pulse Ox O2 Delivery O2 Flow Rate FiO2 10/23/16 08:00 97.7 54 16 110/56 97 10/23/16 04:00 96.9 57 20 115/67 99 10/23/16 01:10 96.7 62 18 115/55 98 10/23/16 00:00 96.4 59 18 115/57 96 10/22/16 22:15 96.4 59 18 115/57 96 10/22/16 20:00 97.7 59 16 114/54 99 10/22/16 19:37 97.7 59 16 114/54 94 10/22/16 18:40 97.2 62 16 113/49 10/22/16 18:23 98.1 59 18 126/62 10/22/16 17:05 98.1 10/22/16 17:02 59 18 126/62 100 10/22/16 14:53 61 15 180/55 97 Room Air 10/22/16 13:47 97.9 60 16 115/55 100 I/O 10/22/16 10/22/16 10/22/16 10/23/16 10/23/16 10/23/16 07:00 15:00 23:00 07:00 15:00 23:00 Intake Total 0 ml 360 ml Balance 0 ml 360 ml Intake Oral 0 ml 360 ml # Voids 0 2 # Bowel Movements 0 0 Result Diagram: 10/23/16 0550 10/23/16 0550 Objective Remarks GENERAL: NAD, A&Ox3 SKIN: Warm and dry. HEAD: Normocephalic. EYES: No scleral icterus. No injection or drainage. NECK: Supple, trachea midline. No JVD or lymphadenopathy. CARDIOVASCULAR: Regular rate and rhythm without murmurs, gallops, or rubs. RESPIRATORY: Breath sounds equal bilaterally. No accessory muscle use. GASTROINTESTINAL: Abdomen soft, non-tender, nondistended. MUSCULOSKELETAL: No cyanosis, or edema. Medications and IVs Administered Medications Medications (Trade) Dose Ordered Sig/Jc Route PRN Reason Start Time Stop Time Status Last Admin Dose Admin Sodium Chloride (NS 1000 ml Inj) 1,000 ml @ 100 mls/hr Q10H IV 10/22/16 15:35 10/22/16 17:47 A/P Problem List: (1) GI bleeding ICD Code: K92.2 (2) Gastrointestinal hemorrhage with melena ICD Code: K92.1 (3) Acute blood loss anemia ICD Code: D62 (4) Cirrhosis ICD Code: K74.60 (5) Diabetes ICD Code: E11.9 (6) Chronic anemia ICD Code: D64.9 (7) Portal hypertension with esophageal varices ICD Code: K76.6 Assessment and Plan Assessment and Plan 56-year-old female admitted for upper GI bleed with history of cirrhosis. Transfuse 2 units overnight. Clinically bleeding appears to be improved. GI consult pending. Acute GI Bleed Acute Blood Loss Anemia on Chronic Anemia 2 units transfused 10/22/2016 Likely from esophageal varices GI consulted NPO IV Hydration PRN Zofran Given her chronic anemia and likely delayed manifestation with active bleed in progress, she is ordered for two units transfusion of PRBCs Follow H/H CBC in AM IV Protonix Cirrhosis Portal Hypertension Chronic lower extremity edema NPO for now resume PO treatments when bleeding resolved She may seek options for a liver transplant in the future DM2 NPO Follow blood sugars Insulin Sliding Scale DVT Prophylaxis SCDs Code Status Full Code Joaquin Maldonado MD October 23, 2016 11:14 am
[2016-10-23] MEDS: SODIUM CHLOR 0.9% 1000 ML INJ 1,000 ML IV SCH ×2 (11:35→20:27)
[2016-10-23] MEDS: PANTOPRAZOLE INJ 80 MG in SODIUM CHLORIDE 0.9% INJ 100 ML IV SCH (12:21)
[2016-10-23] MEDS ORDERED: OCTREOTIDE INJ 500 MCG in SODIUM CHLORID 0.9% 500 ML INJ 500 ML IV ONE (17:00)
[2016-10-23 17:36] LABS: TOTAL BILIRUBIN ADULT 6.3 MG/DL (0.2-1.0)
--- NOTE | 2016-10-23 18:14 | MB ---
cc: SABINA BISHOP MD DATE OF CONSULTATION 10/23/16 DATE OF [birth year][address] Maldonado REASON FOR CONSULTATION Recurrent GI bleeding. HISTORY OF PRESENT ILLNESS Ms. Aiken is a 56-year-old lady with history of liver cirrhosis, possibly secondary to ZHOU versus autoimmune disease. She came to the emergency room with symptomatic anemia. The patient has anemia requiring blood transfusion and iron infusion for the last three years. She had endoscopies and colonoscopies in the past which were essentially negative. She was diagnosed with portal hypertension and gastric antral vascular ectasia as per notes and was able to review. She recently had an admission to the hospital and she had an upper endoscopy with ___plasma coagulation and treatment of the AVMs in the stomach. She denies any nausea, vomiting, constipation, diarrhea, never had a capsule endoscopy or any other studies for her small intestine. She is in the process to being referred to a tertiary center for possible liver transplantation. PAST MEDICAL HISTORY 1. Cirrhosis, 2. Portal hypertension 3. Esophageal varices 4. Diabetes type 2, 5. Chronic anemia 6. History of GAVE, gastric antral vascular ectasia PAST SURGICAL HISTORY 1. Cholecystectomy, 2. Hysterectomy, 3. Right knee arthroscopy MEDICATIONS 1. Glipizide. 2. Glucophage At home. 1. 2. Spironolactone. 3. Furosemide 4. Protonix. 5. Multivitamins, 6. B complex. ALLERGIES AMOXICILLIN MORPHINE FAMILY HISTORY No family history of colon cancer or any other GI pathology. SOCIAL HISTORY Denies smoking, drinking or drug use. REVIEW OF SYSTEMS She denies any fever or chills, weight loss or weight gain. ENT: No alteration in baseline hearing or visual acuity PULMONARY Denies any chest pain, shortness of breath. GASTROINTESTINAL: As above. GENITOURINARY: Denies dysuria, hematuria. HEMATOLOGIC: she does have history of anemia, no bleeding disorder. SKIN: No alteration in baseline skin lesion. NEUROLOGIC: No history of TIA or CVA kind of symptoms. PHYSICAL EXAMINATION GENERAL: On clinical exam, she is sitting comfortably in bed. She is jaundiced. Mild pallor. NECK: No JVD. No lymphadenopathy. CHEST: Clear to auscultation and palpation. CARDIOVASCULAR: S1, S2. No murmur. ABDOMEN: Soft, obese. Bowel sounds are present. CHURN DRILLER: Awake, alert, oriented x3. No focal signs identified. LABORATORY DATA Hemoglobin on admission was 8.1. She received two units of PRBC currently 9.2, platelets 36. PT/INR 11.5 and 1. Her glucose was 228 on admission, currently 114, total bilirubin 6.3, albumin 3.1. IMAGING STUDIES There was no recent image. She had an ultrasound of the abdomen in August which showed portal hypertension with mild distension of the portal vein, costal calcification status post cholecystectomy. IMPRESSION Ms. Aiken is an unfortunate 56-year-old lady with history of liver cirrhosis, seems to be related to ZHOU and possible auto immune disease, AMI titer was slightly elevated in the past. No particular etiology found for it. Admitted with symptomatic anemia. History of GAVE most likely the current cause of her melena. Elevation of the total bilirubin, needs to determine if there is some degree of hemolysis or if it is related to underlying liver disease. RECOMMENDATIONS Clear liquid diet. We are going to order direct and indirect bilirubin again along with haptoglobin and LDH to evaluate for possible hemolysis. We are also going to order right upper quadrant ultrasound. [facility] with ___ plasma coagulation of her GAVE as this tool is not available in [facility]. Thank you again. We will continue to follow the patient along with you. Sabina Bishop MD BSB/SA /4:35 PM /5:49 PM
[2016-10-23] MEDS: ONDANSETRON HCL 4 MG/2 ML VIAL IVP PRN (22:00)
[2016-10-23] MEDS ORDERED: HYDROmorphone HCL PF 1 MG/ML VIAL IV PUSH PRN (22:00)
--- NOTE | 2016-10-23 23:02 | RADRPT ---
EXAM DATE/TIME: 10/23/2016 22:39 [facility] COMPARISON: No previous studies available for comparison. INDICATIONS : Shortness of breath after platelet transfusion. MEDICAL HISTORY : Congestive heart failure. Hypercholesterolemia. Haital hernia. SURGICAL HISTORY : Hiatal hernia repair. ENCOUNTER: Initial ACUITY: 1 day PAIN SCORE: 0/10 LOCATION: Bilateral chest FINDINGS: A single view of the chest demonstrates the lungs to be symmetrically aerated without evidence of mas s, infiltrate or effusion. The cardiomediastinal contours are unremarkable. Osseous structures are intact. CONCLUSION: No acute cardiopulmonary disease demonstrated. Alfonzo Nolasco MD on October 23, 2016 at 23:00 Board Certified Radiologist. This report was verified electronically.
[2016-10-24] MEDS: PANTOPRAZOLE INJ 80 MG in SODIUM CHLORIDE 0.9% INJ 100 ML IV SCH ×2 (00:23→09:37)
[2016-10-24] MEDS: DEXT 5%-NACL 0.45% 1000 ML INJ 1,000 ML IV SCH (00:23)
[2016-10-24 04:40] VITALS: BP 134/64; PULSE 60; RESP 22; TEMP 98.1; O2SAT 98
[2016-10-24] MEDS: INSULIN ASPART SUPPLEMENTAL SCALE SQ SCH ×4 (05:38→22:01)
[2016-10-24 07:13] LABS: ALT (GPT) 19 U/L (10-53); ANION GAP 15 MEQ/L (5-15); AST (GOT) 28 U/L (15-37); BICARBONATE 18.3 MEQ/L (21.0-32.0); BLOOD UREA NITROGEN 15 MG/DL (7-18); CHLORIDE 111 MEQ/L (98-107); GLOMERULAR FILTRATION RATE 53 ML/MIN (>89); POTASSIUM 4.1 MEQ/L (3.5-5.1); SODIUM (NA) 144 MEQ/L (136-145)
[2016-10-24 07:14] LABS: INTERNATIONAL NORMALIZED RATIO 1.1 RATIO; PROTHROMBIN TIME - PATIENT 12.4 SEC (9.8-11.6)
[2016-10-24 07:15] LABS: ALKALINE PHOSPHATASE 84 U/L (45-117); HEMATOCRIT 28.5 % (35.0-46.0); MEAN CELL VOLUME 80.2 FL (80.0-100.0); MEAN CORPUSCULAR HEMOGLOBIN 27.1 PG (27.0-34.0); MEAN CORPUSCULAR HGB CONC 33.7 % (32.0-36.0); PLATELET COUNT 50 TH/MM3 (150-450); RED BLOOD COUNT 3.56 MIL/MM3 (4.00-5.30); RED CELL DISTRIBUTION WIDTH 23.3 % (11.6-17.2); TOTAL BILIRUBIN ADULT 7.2 MG/DL (0.2-1.0); WHITE BLOOD COUNT 8.1 TH/MM3 (4.0-11.0)
[2016-10-24 07:25] LABS: HEMO FLAGS AUTO DIFF
[2016-10-24 08:00] VITALS: BP 91/51; PULSE 55; RESP 19; TEMP 97.1; O2SAT 98
[2016-10-24] MEDS: SODIUM CHLORIDE 0.9% FLUSH 10 ML FLUSH IV FLUSH SCH ×2 (09:00→21:06)
[2016-10-24 09:11] LABS: BANDS 11 % (0-6); EOSINOPHILS 1 % (0-4); NEUTROPHIL # MANUAL DIFF 7.6 TH/MM3 (1.8-7.7); OVALOCYTES 2+ (NORMAL); PLATELET ESTIMATE SMEAR LOW (NORMAL); PLATELET MORPHOLOGY NORMAL (NORMAL); POLYS (SEG NEUTROPHILS) 83 % (16-70); SCAN/DIFF FINAL DIFF MANUAL; WBC DIFF SAMPLE 100
--- NOTE | 2016-10-24 10:55 | HHI.PR ---
Subjective Remarks I'll offer GI bleed No hematemesis, no bowel movement since admission. Scheduled for EGD today. Sleepy but easily arousable, oriented 3. Complaints of mild abdominal discomfort, denies any shortness of breath or chest pain. Objective Vitals Vital Signs Date Time Temp Pulse Resp B/P Pulse Ox O2 Delivery O2 Flow Rate FiO2 10/24/16 08:00 97.1 55 19 91/51 98 10/24/16 04:40 98.1 60 22 134/64 98 10/23/16 22:10 98.7 83 24 164/84 100 10/23/16 21:32 97.0 60 18 119/59 96 10/23/16 21:15 97.0 60 20 119/54 98 10/23/16 21:03 97.9 59 18 150/65 100 10/23/16 16:00 98.2 56 18 112/56 96 10/23/16 12:00 98.0 60 16 118/60 97 I/O 10/23/16 10/23/16 10/23/16 10/24/16 10/24/16 10/24/16 07:00 15:00 23:00 07:00 15:00 23:00 Intake Total 360 ml 1133 ml 416 ml Output Total 0 ml Balance 360 ml 1133 ml 416 ml Intake Oral 360 ml 500 ml 0 ml IV Total 436 ml 416 ml Platelets 197 ml Output Urine Total 0 ml # Voids 2 3 1 # Bowel Movements 0 0 0 Result Diagram: 10/24/16 0600 10/24/16 0600 Objective Remarks GENERAL: NAD, A&Ox3 SKIN: Warm and dry. HEAD: Normocephalic. EYES: No scleral icterus. No injection or drainage. NECK: Supple, trachea midline. No JVD or lymphadenopathy. CARDIOVASCULAR: Regular rate and rhythm without murmurs, gallops, or rubs. RESPIRATORY: Breath sounds equal bilaterally. No accessory muscle use. GASTROINTESTINAL: Abdomen soft, mild abdominal tenderness especially on the left upper quadrant. Nondistended. MUSCULOSKELETAL: No cyanosis, 1+ upper extremity edema, no lower extremity edema Under direct and oriented, no focal deficits, sleepy but easily arousable. A/P Problem List: (1) GI bleeding ICD Code: K92.2 Status: Acute (2) Cirrhosis ICD Code: K74.60 Status: Acute (3) Diabetes ICD Code: E11.9 Status: Acute (4) Gastrointestinal hemorrhage with melena ICD Code: K92.1 Status: Acute (5) Acute blood loss anemia ICD Code: D62 Status: Acute (6) Chronic anemia ICD Code: D64.9 Status: Chronic (7) Portal hypertension with esophageal varices ICD Code: K76.6 Status: Acute Assessment and Plan 56-year-old female admitted for upper GI bleed with history of cirrhosis of unknown etiology Acute GI Bleed with acute blood loss anemia on top of chronic-status post transfusion, likely secondary to GAVE versus esophageal varices. Previously had an extensive workup, and no etiology for cirrhosis found. Nothing by mouth , for EGD today, continue IVF. Transfuse as needed, follow hemoglobin and hematocrit. Zofran as needed for symptomatic treatment. Continue Protonix and octreotide. Acute anemia secondary to blood loss on top of chronic, bicytopenia- haptoglobin is low, LDH pending, also with hyper bilirubinemia. Possible hemolysis, previous bone marrow biopsy in April 2016 showed hypercellular marrow with trilineage hyperplasia with no stainable iron. Check iron panel. Consult hematology. Mild hypotension-echocardiogram previously showed ejection fraction 55-60%, start IVF Sleepiness-likely secondary to hypotension, start IVF, check ammonia, monitor. Stop Dilaudid, neurochecks. Cirrhosis Portal Hypertension Chronic lower extremity edema -NPO for now, oral medications on hold. DM2-continue IVF with D5, sliding scale insulin. On nothing by mouth. DVT Prophylaxis SCDs, low risk Sacha Alas MD October 24, 2016 10:55
[2016-10-24] MEDS ORDERED: SODIUM CHLORID 0.9% 500 ML INJ 500 ML IV STA (11:00)
[2016-10-24 12:00] VITALS: BP 99/51; PULSE 53; RESP 18; TEMP 97.8; O2SAT 96
[2016-10-24] MEDS ORDERED: DO NOT ADM ANY ANTICOAGULANT DRUGS PRN (12:40)
[2016-10-24] MEDS ORDERED: PROPOFOL 200 MG/20 ML AMP IV ONE (12:50)
--- NOTE | 2016-10-24 13:07 | PD.PROCEDR ---
GI Procedure REFERRING PHYSICIAN ELIEZER PROCEDURE PERFORMED EGD with APC INDICATION FOR PROCEDURE Anemia GI bleed GAVE PROCEDURE: The procedure, risks and benefits were discussed with Ms. Aiken and informed consent was obtained. Anesthesia sedated her with Diprivan. She was placed in the left lateral decubitus position. EGD: The Pentax videoscope was introduced through the oropharynx and advanced to the second portion of the duodenum under direct visualization. Retroflexion was performed in the stomach. FINDINGS: The esophagus this was normal there were no esophageal varices The stomach angiodysplasia was noted in the antrum and to a lesser extent in the fundus APC was applied otherwise gastric mucosa was unremarkable there were no gastric varices The duodenum was normal ESTIMATED BLOOD LOSS: None SPECIMENS REMOVED: None COMPLICATIONS: None IMPRESSION: GAVE PLAN: Continue PPI Clear liquids today and advance as tolerated tomorrow EGD in 2 weeks Continue with current supportive care Marcelino Pete MD October 24, 2016 13:07
--- NOTE | 2016-10-24 13:26 | RADRPT ---
EXAM DATE/TIME: 10/24/2016 07:52 [facility] COMPARISON: US ABDOMEN - LIVER, September 04, 2016, 8:26. INDICATIONS : Cirrhosis. Vomiting. MEDICAL HISTORY : Congestive heart failure. Cirrhosis. Melena. UTI. Diabetes. Anemia. SURGICAL HISTORY : Tonsillectomy. Cholecystectomy. Hysterectomy. section. Right knee. Blood transfusions. ENCOUNTER: Subsequent ACUITY: 1 day PAIN SCORE: 3/10 LOCATION: Bilateral upper quadrant MEASUREMENTS: LIVER: 13.5 cm length COMMON DUCT: 3 mm RIGHT KIDNEY: 9.3 x 4.8 x 5.0 cm SPLEEN: 19.7 cm length FINDINGS: LIVER: Diffuse nodularity of the liver capsule indicating cirrhosis. Recannulized paraumbilical vein noted. Calcification in the right lobe of the liver again seen. Portal venous flow is hepatopedal. COMMON DUCT: No intraluminal mass or stone visualized. GALLBLADDER: Contains no stones, demonstrates no wall thickening or pericholecystic fluid. PANCREAS: The visualized portions are within normal limits. RIGHT KIDNEY: No hydronephrosis, stone or mass. SPLEEN: No focal lesion. CONCLUSION: 1. Findings indicating cirrhosis. 2. Findings indicating portal venous hypertension with recanalized local vein and splenomegaly. 3. Right pleural effusion. Jerel Blackburn MD on October 24, 2016 at 13:21 Board Certified Radiologist. This report was verified electronically.
[2016-10-24 13:57] VITALS: BP 109/73; PULSE 54; RESP 16; TEMP 97.6; O2SAT 96
[2016-10-24 16:38] VITALS: BP 103/54; PULSE 75; RESP 19; TEMP 97.5; O2SAT 98
--- NOTE | 2016-10-24 16:38 | MB ---
cc: ISAIAH ALAS MD, SAUD E. M.D. DEVERAS, RUBY ANNE E. M.D. DATE OF CONSULTATION: 10/24/2016. REASON FOR CONSULTATION: Dr. Alas requested consultation for Ms. Aiken with suspicion for hemolysis and hemolytic anemia. REFERRING PHYSICIAN: Dr. Isaiah Alas. HISTORY OF PRESENT ILLNESS: Ms. Aiken is a 56-year-old woman well-known patient with history of anemia secondary to GI bleed. She was initially seen in consultation in April of 2016 with thrombocytopenia. She has a history of arthritis, hypercholesterolemia, congestive heart failure, diabetes, gastroesophageal reflux, hypertension and headaches. She has a history of cirrhosis and has been evaluated by gastroenterology. She was seen by Dr. Bishop who suspected that the liver cirrhosis is either secondary to ZHOU (nonalcoholic steatohepatitis) versus autoimmune. Consequent to the cirrhosis, she has developed portal hypertension and gastric antral vascular ectasia. She has had multiple admissions for GI bleeding requiring upper endoscopy, plasma coagulation and treatment of AVMs. She is seen in hematology clinic for the results on iron deficiency. She was treated with parenteral iron therapy but did not see any significant benefit from that given that she had two admissions in-between for GI bleeding. Recently she received a dose of parenteral iron therapy. She received some Venofer. There appears to have been some response. Her MCV has improved. Her MCV was previously 74 and it has gone up to 80.2. Hemoglobin on admission was 8.2. She was transfused two units of packed red cells for the bleeding. She was transferred to [facility] for upper endoscopy and special procedure, EGD with APC. Hematology/Oncology was consulted for questionable hemolysis. Because of her liver disease, she has a haptoglobin of 10. She has anemia, thrombocytopenia and a bilirubin that is elevated. Her bilirubin is increased to 7.2. Much of the hyperbilirubinemia is indirect. Her blood bank testing shows antibody screen for protein H. Despite these laboratory findings, her hemoglobin has been stable with a hemoglobin 9.2 on 10/23 and a hemoglobin of 9.6 on 10/24. She was sleepy and lethargic at the time of consultation as she had just come out from her procedure. She offers no acute complaints. PAST MEDICAL HISTORY: 1. Congestive heart failure. 2. Diabetes type 2. 3. Portal hypertension. 4. GI bleeding. 5. Heart disease. 6. Hypercholesterolemia. 7. Hypertension. 8. Liver cirrhosis secondary to ZHOU versus autoimmune. 9. Esophageal varices. 10. Gastric antral vascular ectasia. 11. Iron deficiency. PAST SURGICAL HISTORY: 1. Hysterectomy. 2. Right knee surgery. 3. Endoscopy procedures. 4. Partial hysterectomy. 5. section. 6. Right knee arthroscopic surgery. 7. Cholecystectomy. 8. Variceal banding. 9. Tonsillectomy. 10. Liver biopsy. FAMILY HISTORY: No family history of liver disease. Mother of lung cancer in her 60s. Father of myocardial infarction in his 60s. ALLERGIES: 1. AMOXICILLIN. 2. MORPHINE. SOCIAL HISTORY: She denies any tobacco, alcohol or illicit drug use. CURRENT MEDICATIONS: 1. D5W 2. Pantoprazole. 3. Glucagon p.r.n. 4. Ondansetron p.r.n. PHYSICAL EXAMINATION: VITAL SIGNS: Temperature 97.6 heart rate 54, respiratory rate 16, blood pressure 109/73, saturation 96%. GENERAL: Ms. Aiken is a pale-appearing woman who looks her stated age. HEAD, EYES, EARS, NOSE, THROAT: Her pupils are reactive to light and accommodation. Oropharynx is clear. Poor dentition. NECK: The neck is supple. LUNGS: Clear to auscultation. CARDIOVASCULAR: Exam reveals mild bradycardia. ABDOMEN: Abdomen is benign. EXTREMITIES: Lower extremities with no edema. NEUROLOGIC: Exam is nonfocal. She is sleepy postprocedure. LABORATORY DATA: Labs as described above. Hemoglobin 9.6, platelet count of 50,000 and haptoglobin of 10, bilirubin of 7.2. ASSESSMENT AND PLAN: Ms. Aiken is a 56-year-old woman with multiple medical problems. She has underlying cirrhosis that has led to portal hypertension and varices and GI bleeding. She is seen in hematology for iron deficiency. She was treated with parenteral iron therapy and most recently with Venofer. She has evidence of iron deficiency with low ferritin. We discussed the laboratory findings. I recommend continued parenteral iron therapy to enhance hematopoiesis. The decreased haptoglobin has been present since July of 2016. The anemia is likely contributed to by many factors. The decreased haptoglobin is interpreted in disease. We will monitor. A NIMESH will be checked as well as an LDH. Her hemoglobin is stable. Her platelet count is chronically low because of liver disease and hypersplenism. Supportive transfusions. We will monitor for bleeding. Her questions were answered to her satisfaction. MD RONNELL Velez/MORRIS /3:45 PM /4:15 PM
[2016-10-24] MEDS: SODIUM CHLOR 0.9% 1000 ML INJ 1,000 ML IV SCH (17:09)
[2016-10-24] MEDS ORDERED: IRON SUCROSE INJ 100 MG in SODIUM CHLORIDE 0.9% INJ 100 ML IV ONE (18:00)
[2016-10-24 20:15] VITALS: BP 112/54; PULSE 52; RESP 17; TEMP 98.2; O2SAT 97
[2016-10-24] MEDS: ONDANSETRON HCL 4 MG/2 ML VIAL IVP PRN (23:12)
[2016-10-25] VITALS (10 sets, daily range): BP systolic 103–115; BP diastolic 53–78; PULSE 50–59; RESP 16–20; TEMP 96.3–98.8; O2SAT 94–99
[2016-10-25] MEDS: DEXT 5%-NACL 0.45% 1000 ML INJ 1,000 ML IV SCH (02:28)
[2016-10-25] MEDS: SODIUM CHLOR 0.9% 1000 ML INJ 1,000 ML IV SCH (02:47)
[2016-10-25] MEDS: INSULIN ASPART SUPPLEMENTAL SCALE SQ SCH ×4 (06:06→21:06)
--- NOTE | 2016-10-25 08:00 | PD.ONC.PN ---
Subjective Subjective Remarks Afebrile overnight. Patient denies bleeding but states she had not had a bowel movement. Tolerated iron infusion yesterday. Resting comfortably in room. Objective Data Date Time Temp Pulse Resp B/P Pulse Ox O2 Delivery O2 Flow Rate FiO2 10/25/16 07:04 53 10/25/16 05:00 97.9 56 20 112/66 96 10/25/16 00:30 97.7 59 20 115/62 97 10/24/16 20:15 98.2 52 17 112/54 97 10/24/16 16:38 97.5 75 19 103/54 98 10/24/16 13:57 97.6 54 16 109/73 96 10/24/16 13:00 54 18 127/58 98 Room Air 10/24/16 12:45 56 18 116/56 97 Room Air 10/24/16 12:43 98.3 60 18 104/55 96 Room Air 10/24/16 12:00 97.8 53 18 99/51 96 10/24/16 08:00 97.1 55 19 91/51 98 10/25/16 10/25/16 10/25/16 06:59 14:59 22:59 Intake Total 500 ml Balance 500 ml Result Diagram: 10/24/16 0600 10/24/16 0600 Laboratory Results Laboratory Tests Test 10/24/16 08:46 Blood Bank Comment Administered Medications Medications (Trade) Dose Ordered Sig/Jc Route PRN Reason Start Time Stop Time Status Last Admin Dose Admin Sodium Chloride (NS Flush) 2 ml BID IV FLUSH 10/22/16 21:00 10/24/16 21:06 Ondansetron HCl 4 mg 4 mg Q6H PRN IVP NAUSEA OR VOMITING 10/22/16 15:45 10/24/16 23:12 Pantoprazole Sodium 80 mg/ Sodium Chloride 100 ml @ 10 mls/hr CONTINUOUS IV 10/22/16 22:00 10/24/16 09:37 Dextrose/Sodium Chloride 1,000 ml @ 42 mls/hr [id number] IV 10/23/16 23:45 10/25/16 02:28 Sodium Chloride (NS 1000 ml Inj) 1,000 ml @ 100 mls/hr Q10H IV 10/24/16 17:00 10/24/16 17:09 Objective Remarks GENERAL: Middle aged female, supine in bed in nad. SKIN: Warm and dry. HEAD: Normocephalic. EYES: No injection or drainage. NECK: Supple, trachea midline. CARDIOVASCULAR: Regular rate and rhythm RESPIRATORY: Breath sounds equal bilaterally. No accessory muscle use. GASTROINTESTINAL: Abdomen soft, non-tender, nondistended. EXTREMITIES: No cyanosis NEUROLOGICAL: No obvious focal deficit. Awake, alert, and oriented x3. Assessment/Plan Problem List: (1) Anemia Status: Acute Plan: --multifactorial --haptoglobin low secondary to poor liver function (present since 2016) --NIMESH pending --LDH pending --thrombocytopenia d/t liver disease and hypersplenism. Assessment 56y/o female with question of hemolysis and hemolytic anemia. history of anemia secondary to GI bleed. She was initially seen in consultation in April of 2016 with thrombocytopenia. --history of arthritis, hypercholesterolemia, congestive heart failure, diabetes , gastroesophageal reflux, hypertension and headaches. --history of cirrhosis secondary to ZHOU (nonalcoholic steatohepatitis) versus autoimmune. Consequent to the cirrhosis, she has developed portal hypertension and gastric antral vascular ectasia. She has had multiple admissions for GI bleeding requiring upper endoscopy, plasma coagulation and treatment of AVMs Plan 1. monitor CBC 2. will give second dose IV iron Attending Statement The exam, history, and the medical decision-making described in the above note were completed with the assistance of the mid-level provider. I reviewed and agree with the findings presented. I attest that I had a [id number] encounter with the patient on the same day, and personally performed and documented my assessment and findings in the medical record. Better today, less sleepy. Still has pallor. Plan to continue iron tx because IV access available. IV access is a problem in out pt setting to administer iron. Mary Rich October 25, 2016 08:00 Nickie Roberts MD October 25, 2016 15:22
[2016-10-25 08:05] LABS: RETIC % 5.9 % (0.4-3.0)
[2016-10-25 08:07] LABS: BASOPHIL % 0.6 % (0.0-2.0); EOSINOPHIL # 0.2 TH/MM3 (0-0.4); EOSINOPHIL % 2.7 % (0.0-4.0); HEMATOCRIT 27.7 % (35.0-46.0); LYMPH % 22.9 % (9.0-44.0); LYMPHOCYTE # 1.4 TH/MM3 (1.0-4.8); MEAN CELL VOLUME 80.9 FL (80.0-100.0); MEAN CORPUSCULAR HGB CONC 32.2 % (32.0-36.0); MONO % 7.6 % (0.0-8.0); NEUT % 66.2 % (16.0-70.0); PLATELET COUNT 52 TH/MM3 (150-450); RED BLOOD COUNT 3.42 MIL/MM3 (4.00-5.30); RED CELL DISTRIBUTION WIDTH 23.2 % (11.6-17.2); WHITE BLOOD COUNT 6.1 TH/MM3 (4.0-11.0)
[2016-10-25 08:21] LABS: HEMO FLAGS AUTO DIFF
[2016-10-25] MEDS: SODIUM CHLORIDE 0.9% FLUSH 10 ML FLUSH IV FLUSH SCH ×2 (08:26→21:06)
[2016-10-25 08:28] LABS: REVIEW FLAG FINAL
[2016-10-25 08:30] LABS: ALKALINE PHOSPHATASE 73 U/L (45-117); ALT (GPT) 17 U/L (10-53); ANION GAP 10 MEQ/L (5-15); AST (GOT) 23 U/L (15-37); BICARBONATE 19.8 MEQ/L (21.0-32.0); BLOOD UREA NITROGEN 14 MG/DL (7-18); CHLORIDE 112 MEQ/L (98-107); FERRITIN 61 NG/ML (8-252); GLOMERULAR FILTRATION RATE 57 ML/MIN (>89); INDIRECT BILIRUBIN 3.4 MG/DL (0.0-0.8); LDH SERUM 270 U/L (84-246); POTASSIUM 3.7 MEQ/L (3.5-5.1); SODIUM (NA) 142 MEQ/L (136-145); TRANSFERRIN IRON PROFILE 223 MG/DL (200-360)
[2016-10-25 09:15] LABS: CALCIUM-PROTEIN CORRECTED 8.4 MG/DL (8.5-10.1)
[2016-10-25] MEDS: PANTOPRAZOLE INJ 80 MG in SODIUM CHLORIDE 0.9% INJ 100 ML IV SCH (10:37)
[2016-10-25 10:49] LABS: BURR CELLS 1+ (NORMAL); OVALOCYTES 2+ (NORMAL); PLATELET ESTIMATE SMEAR LOW (NORMAL); PLATELET MORPHOLOGY NORMAL (NORMAL); SCAN/DIFF AUTO DIFF CONFIRMED; TEARDROP RBCS 1+ (NORMAL)
--- NOTE | 2016-10-25 11:08 | HHI.PR ---
Subjective Remarks denies any abdominal pain, slighly nauseated this am, but no vomiting no reported melena or hematochezia Objective Vitals Vital Signs Date Time Temp Pulse Resp B/P Pulse Ox O2 Delivery O2 Flow Rate FiO2 10/25/16 10:04 50 10/25/16 08:22 95 21 10/25/16 08:00 96.6 54 16 111/53 94 10/25/16 07:04 53 10/25/16 05:00 97.9 56 20 112/66 96 10/25/16 00:30 97.7 59 20 115/62 97 10/24/16 20:15 98.2 52 17 112/54 97 10/24/16 16:38 97.5 75 19 103/54 98 10/24/16 13:57 97.6 54 16 109/73 96 10/24/16 13:00 54 18 127/58 98 Room Air 10/24/16 12:45 56 18 116/56 97 Room Air 10/24/16 12:43 98.3 60 18 104/55 96 Room Air 10/24/16 12:00 97.8 53 18 99/51 96 I/O 10/24/16 10/24/16 10/24/16 10/25/16 10/25/16 10/25/16 07:00 15:00 23:00 07:00 15:00 23:00 Intake Total 416 ml 798 ml 950 ml 500 ml Output Total 0 ml 0 ml Balance 416 ml 798 ml 950 ml 500 ml Intake Oral 0 ml 0 ml 950 ml 500 ml IV Total 416 ml 598 ml Other 200 ml Output Urine Total 0 ml 0 ml Estimated Blood Loss 0 ml Other 0 ml Bladder Scan Volume Amount 298 ml # Voids 1 2 # Bowel Movements 0 0 0 Result Diagram: 10/25/16 0733 10/25/16 0733 Imaging Last Impressions Liver Ultrasound 10/24/16 0000 Signed Impressions: Service Date/Time: Monday, October 24, 2016 07:52 - CONCLUSION: 1. Findings indicating cirrhosis. 2. Findings indicating portal venous hypertension with recanalized local vein and splenomegaly. 3. Right pleural effusion. Jerel Blackburn MD Chest X-Ray 10/23/16 0000 Signed Impressions: Service Date/Time: Sunday, October 23, 2016 22:39 - CONCLUSION: No acute cardiopulmonary disease demonstrated. Alfonzo Nolasco MD Objective Remarks awake and alert, NAD but appears weak mild icteresia no nuchal rigidity lungs- no rales regular rhythm abdomen-soft, + bowel sounds extremities no edema, moves all extremities spontaneously Procedures 10/24- EGD- angiodysplasia in fundus A/P Problem List: (1) GI bleeding ICD Code: K92.2 Status: Acute (2) Cirrhosis ICD Code: K74.60 Status: Acute (3) Diabetes ICD Code: E11.9 Status: Acute (4) Gastrointestinal hemorrhage with melena ICD Code: K92.1 Status: Acute (5) Acute blood loss anemia ICD Code: D62 Status: Acute (6) Chronic anemia ICD Code: D64.9 Status: Chronic (7) Portal hypertension with esophageal varices ICD Code: K76.6 Status: Acute Assessment and Plan 56-year-old female admitted for upper GI bleed with history of cirrhosis of unknown etiology Acute GI Bleed with acute blood loss anemia on top of chronic-status post transfusion, 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 Transfuse as needed, follow hemoglobin and hematocrit. Zofran as needed for symptomatic treatment. ADvance diet Acute anemia secondary to blood loss on top of chronic, bicytopenia- haptoglobin is low, LDH pending, also with hyper bilirubinemia. Possible hemolysis, previous bone marrow biopsy in April 2016 showed hypercellular marrow with trilineage hyperplasia with no stainable iron. Hematology ff. Received IV Iron x 1 Mild hypotension-echocardiogram previously showed ejection fraction 55-60%, stable. Increase activity and montior Sleepiness-likely secondary to hypotension,Awake and alert. Stop Dilaudid, neurochecks. Cirrhosis Portal Hypertension Chronic lower extremity edema - restart meds, po DM2-continue IVF with D5, sliding scale insulin. Tea Wilson MD October 25, 2016 11:08
[2016-10-25] MEDS ORDERED: IRON SUCROSE INJ 100 MG in SODIUM CHLORIDE 0.9% INJ 100 ML IV ONE (12:45)
--- NOTE | 2016-10-25 14:24 | HHI.GIFU ---
Subjective Remarks Pt reports she had some nausea yesterday but now feels fine. She had some regular food today and feels ok. No fevers or chills. No BMs yet Objective Vitals I&O Vital Signs Date Time Temp Pulse Resp B/P Pulse Ox O2 Delivery O2 Flow Rate FiO2 10/25/16 12:00 97.6 53 18 103/53 96 10/25/16 10:04 50 10/25/16 08:22 95 21 10/25/16 08:00 96.6 54 16 111/53 94 10/25/16 07:04 53 10/25/16 05:00 97.9 56 20 112/66 96 10/25/16 00:30 97.7 59 20 115/62 97 10/24/16 20:15 98.2 52 17 112/54 97 10/24/16 16:38 97.5 75 19 103/54 98 I/O 10/24/16 10/24/16 10/24/16 10/25/16 10/25/16 10/25/16 06:59 14:59 22:59 06:59 14:59 22:59 Intake Total 416 ml 798 ml 950 ml 500 ml Output Total 0 ml 0 ml Balance 416 ml 798 ml 950 ml 500 ml Intake Oral 0 ml 0 ml 950 ml 500 ml IV Total 416 ml 598 ml Other 200 ml Output Urine Total 0 ml 0 ml Estimated Blood Loss 0 ml Other 0 ml Bladder Scan Volume Amount 298 ml # Voids 1 1 1 # Bowel Movements 0 0 0 Laboratory Laboratory Tests Test 10/25/16 07:33 White Blood Count 6.1 Red Blood Count 3.42 Hemoglobin 8.9 Hematocrit 27.7 Mean Corpuscular Volume 80.9 Mean Corpuscular Hemoglobin 26.0 Mean Corpuscular Hemoglobin 32.2 Concent Red Cell Distribution Width 23.2 Platelet Count 52 Mean Platelet Volume 10.2 Neutrophils (%) (Auto) 66.2 Lymphocytes (%) (Auto) 22.9 Monocytes (%) (Auto) 7.6 Eosinophils (%) (Auto) 2.7 Basophils (%) (Auto) 0.6 Neutrophils # (Auto) 4.0 Lymphocytes # (Auto) 1.4 Monocytes # (Auto) 0.5 Eosinophils # (Auto) 0.2 Basophils # (Auto) 0.0 CBC Comment AUTO DIFF Differential Comment AUTO DIFF CONFIRMED Platelet Estimate LOW Platelet Morphology Comment NORMAL Tear Drop Cells 1+ Ovalocytes 2+ Sherwin Cells 1+ Reticulocyte Count 5.9 Absolute Reticulocyte Count 197.8 Sodium Level 142 Potassium Level 3.7 Chloride Level 112 Carbon Dioxide Level 19.8 Anion Gap 10 Blood Urea Nitrogen 14 Creatinine 1.00 Estimat Glomerular Filtration 57 Rate Random Glucose 149 Calcium Level 7.2 Protein Corrected Calcium 8.4 Iron Level 90 Total Iron Binding Capacity 312 Percent Iron Saturation 28.8 Ferritin 61 Total Bilirubin 5.0 Direct Bilirubin 1.6 Indirect Bilirubin 3.4 Aspartate Amino Transf 23 (AST/SGOT) Alanine Aminotransferase 17 (ALT/SGPT) Alkaline Phosphatase 73 Ammonia 122 Lactate Dehydrogenase 270 Total Protein 5.0 Albumin 2.6 Blood Type A POSITIVE Direct Antiglobulin Test NEGATIVE ([place]) Physical Exam HEENT: Pupils round and reactive to light; normocephalic; atraumatic; no jaundice. Throat is clear. NECK: Neck is supple, no JVD, no lymphadenopathy. CHEST: Chest is clear to auscultation and percussion. CARDIAC: Regular rate and rhythm with no murmur gallop or rubs. ABDOMEN: Soft, nondistended, nontender; no hepatosplenomegaly; bowel sounds are present in all four quadrants. EXTREMITIES: No clubbing, cyanosis, or edema. SKIN: Normal; no rash; no jaundice. INDUSTRIAL ORGANIZATION MANAGER: No focal deficits; alert and oriented times three. 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 Underwent treatment with argon plasma wool tamper yesterday and feels OK today. No significant varices seen. GI bleed. stable Anemia due to blood loss. Stable Plan: continue supportive care PPI regular diet. Home tomorrow if stable. Venkat Mendoza MD October 25, 2016 14:24
[2016-10-26 00:30] VITALS: BP 110/80; PULSE 58; RESP 18; TEMP 97.7; O2SAT 99
[2016-10-26] MEDS ORDERED: ACETAMINOPHEN/HYDROcodone 325 MG/5 MG TAB PO ONE (02:45)
[2016-10-26] MEDS: DEXT 5%-NACL 0.45% 1000 ML INJ 1,000 ML IV SCH (03:14)
[2016-10-26] MEDS: PANTOPRAZOLE INJ 80 MG in SODIUM CHLORIDE 0.9% INJ 100 ML IV SCH ×2 (05:25→14:37)
[2016-10-26 05:30] VITALS: BP 99/50; PULSE 56; RESP 17; TEMP 98; O2SAT 95
[2016-10-26] MEDS: INSULIN ASPART SUPPLEMENTAL SCALE SQ SCH ×3 (06:16→15:59)
[2016-10-26 08:00] VITALS: BP 97/43; PULSE 54; RESP 17; TEMP 95.8; O2SAT 98
[2016-10-26 08:10] VITALS: PULSE 53
[2016-10-26 08:44] LABS: AUTOMATED NEUTROPHIL # 2.9 TH/MM3 (1.8-7.7); BASOPHIL % 0.6 % (0.0-2.0); EOSINOPHIL # 0.2 TH/MM3 (0-0.4); EOSINOPHIL % 3.4 % (0.0-4.0); HEMATOCRIT 28.5 % (35.0-46.0); LYMPH % 25.8 % (9.0-44.0); LYMPHOCYTE # 1.3 TH/MM3 (1.0-4.8); MEAN CELL VOLUME 82.3 FL (80.0-100.0); MEAN CORPUSCULAR HEMOGLOBIN 26.5 PG (27.0-34.0); MEAN CORPUSCULAR HGB CONC 32.1 % (32.0-36.0); MONO % 9.6 % (0.0-8.0); NEUT % 60.6 % (16.0-70.0); PLATELET COUNT 52 TH/MM3 (150-450); RED BLOOD COUNT 3.47 MIL/MM3 (4.00-5.30); RED CELL DISTRIBUTION WIDTH 24.1 % (11.6-17.2); WHITE BLOOD COUNT 4.8 TH/MM3 (4.0-11.0)
[2016-10-26 08:48] LABS: HEMO FLAGS AUTO DIFF
[2016-10-26] MEDS: SODIUM CHLORIDE 0.9% FLUSH 10 ML FLUSH IV FLUSH SCH (08:54)
[2016-10-26 09:18] LABS: ACANTHOCYTES OCC (NORMAL); OVALOCYTES 2+ (NORMAL); PLATELET ESTIMATE SMEAR LOW (NORMAL)
[2016-10-26 09:19] LABS: PLATELET MORPHOLOGY NORMAL (NORMAL); SCAN/DIFF AUTO DIFF CONFIRMED; TEARDROP RBCS 1+ (NORMAL)
--- NOTE | 2016-10-26 11:28 | PD.ONC.PN ---
Subjective Subjective Remarks Afebrile overnight. Patient resting comfortably in bed. She had some upper extremity swelling earlier today, but says it has been going down since she elevated her arms. She had a BM with dark stools yesterday, but no obvious bleeding. Objective Data Date Time Temp Pulse Resp B/P Pulse Ox O2 Delivery O2 Flow Rate FiO2 10/26/16 08:00 95.8 54 17 97/43 98 10/26/16 05:30 98.0 56 17 99/50 95 10/26/16 00:30 97.7 58 18 110/80 99 10/25/16 21:07 21 10/25/16 21:00 57 10/25/16 20:45 98.8 54 17 115/78 99 10/25/16 16:00 96.3 53 16 103/63 94 10/25/16 12:00 97.6 53 18 103/53 96 10/26/16 10/26/16 10/26/16 07:00 15:00 23:00 Intake Total 800 ml Output Total 800 ml Balance 0 ml Result Diagram: 10/26/16 0751 10/25/16 0733 Laboratory Results Laboratory Tests Test 10/26/16 07:51 White Blood Count 4.8 TH/MM3 Red Blood Count 3.47 MIL/MM3 Hemoglobin 9.2 GM/DL Hematocrit 28.5 % Mean Corpuscular Volume 82.3 FL Mean Corpuscular Hemoglobin 26.5 PG Mean Corpuscular Hemoglobin 32.1 % Concent Red Cell Distribution Width 24.1 % Platelet Count 52 TH/MM3 Mean Platelet Volume 9.9 FL Neutrophils (%) (Auto) 60.6 % Lymphocytes (%) (Auto) 25.8 % Monocytes (%) (Auto) 9.6 % Eosinophils (%) (Auto) 3.4 % Basophils (%) (Auto) 0.6 % Neutrophils # (Auto) 2.9 TH/MM3 Lymphocytes # (Auto) 1.3 TH/MM3 Monocytes # (Auto) 0.5 TH/MM3 Eosinophils # (Auto) 0.2 TH/MM3 Basophils # (Auto) 0.0 TH/MM3 CBC Comment AUTO DIFF Differential Comment AUTO DIFF CONFIRMED Platelet Estimate LOW Platelet Morphology Comment NORMAL Tear Drop Cells 1+ Ovalocytes 2+ Acanthocytes OCC Administered Medications Medications (Trade) Dose Ordered Sig/Jc Route PRN Reason Start Time Stop Time Status Last Admin Dose Admin Sodium Chloride (NS Flush) 2 ml BID IV FLUSH 10/22/16 21:00 10/24/16 21:06 Ondansetron HCl 4 mg 4 mg Q6H PRN IVP NAUSEA OR VOMITING 10/22/16 15:45 10/24/16 23:12 Pantoprazole Sodium 80 mg/ Sodium Chloride 100 ml @ 10 mls/hr CONTINUOUS IV 10/22/16 22:00 10/26/16 05:25 Dextrose/Sodium Chloride (D5W-1/ NS 1000 ml Inj) 1,000 ml @ 42 mls/hr [id number] IV 10/23/16 23:45 10/26/16 03:14 Objective Remarks GENERAL: Middle aged female, lying in bed in nad. SKIN: Warm and dry. HEAD: Normocephalic. EYES: No injection or drainage. NECK: Supple, trachea midline. CARDIOVASCULAR: Regular rate and rhythm RESPIRATORY: Breath sounds equal bilaterally. No accessory muscle use. GASTROINTESTINAL: Abdomen soft, non-tender, nondistended. EXTREMITIES: No cyanosis NEUROLOGICAL: awake and alert, normal speech. moving all extremities. Assessment/Plan Problem List: (1) Anemia Status: Acute Plan: --multifactorial --haptoglobin low secondary to poor liver function (present since 2016) --NIMESH negative --LDH elevated but only slightly. not consistent with hemolysis --thrombocytopenia d/t liver disease and hypersplenism. Assessment 56y/o female with question of hemolysis and hemolytic anemia. history of anemia secondary to GI bleed. She was initially seen in consultation in April of 2016 with thrombocytopenia. --history of arthritis, hypercholesterolemia, congestive heart failure, diabetes , gastroesophageal reflux, hypertension and headaches. --history of cirrhosis secondary to ZHOU (nonalcoholic steatohepatitis) versus autoimmune. Consequent to the cirrhosis, she has developed portal hypertension and gastric antral vascular ectasia. She has had multiple admissions for GI bleeding requiring upper endoscopy, plasma coagulation and treatment of AVMs Plan 1. monitor CBC 2. supportive care Mary Rich October 26, 2016 11:28
[2016-10-26 11:55] VITALS: BP 112/50; PULSE 52; RESP 17; TEMP 96.3; O2SAT 98
[2016-10-26 12:01] LABS: INDIRECT BILIRUBIN 3.3 MG/DL (0.0-0.8)
--- NOTE | 2016-10-26 15:40 | HHI.GIFU ---
Subjective Remarks Pt resting comfortably in bed. No abd pain, bleeding, n/v. She did have some dark stools yesterday. (Dionne Allen) Objective Vitals I&O Vital Signs Date Time Temp Pulse Resp B/P Pulse Ox O2 Delivery O2 Flow Rate FiO2 10/26/16 11:55 96.3 52 17 112/50 98 10/26/16 08:10 53 10/26/16 08:00 95.8 54 17 97/43 98 10/26/16 05:30 98.0 56 17 99/50 95 10/26/16 00:30 97.7 58 18 110/80 99 10/25/16 21:07 21 10/25/16 21:00 57 10/25/16 20:45 98.8 54 17 115/78 99 10/25/16 16:00 96.3 53 16 103/63 94 I/O 10/25/16 10/25/16 10/25/16 10/26/16 10/26/16 10/26/16 07:00 15:00 23:00 07:00 15:00 23:00 Intake Total 500 ml 480 ml 850 ml 800 ml Output Total 800 ml Balance 500 ml 480 ml 850 ml 0 ml Intake Oral 500 ml 480 ml 850 ml 800 ml Output Urine Total 800 ml # Voids 2 2 1 1 # Bowel Movements 0 0 1 0 Laboratory Laboratory Tests Test 10/26/16 10/26/16 07:51 11:14 White Blood Count 4.8 Red Blood Count 3.47 Hemoglobin 9.2 Hematocrit 28.5 Mean Corpuscular Volume 82.3 Mean Corpuscular Hemoglobin 26.5 Mean Corpuscular Hemoglobin 32.1 Concent Red Cell Distribution Width 24.1 Platelet Count 52 Mean Platelet Volume 9.9 Neutrophils (%) (Auto) 60.6 Lymphocytes (%) (Auto) 25.8 Monocytes (%) (Auto) 9.6 Eosinophils (%) (Auto) 3.4 Basophils (%) (Auto) 0.6 Neutrophils # (Auto) 2.9 Lymphocytes # (Auto) 1.3 Monocytes # (Auto) 0.5 Eosinophils # (Auto) 0.2 Basophils # (Auto) 0.0 CBC Comment AUTO DIFF Differential Comment AUTO DIFF CONFIRMED Platelet Estimate LOW Platelet Morphology Comment NORMAL Tear Drop Cells 1+ Ovalocytes 2+ Acanthocytes OCC Total Bilirubin 5.0 Direct Bilirubin 1.7 Indirect Bilirubin 3.3 Aspartate Amino Transf 24 (AST/SGOT) Alanine Aminotransferase 17 (ALT/SGPT) Alkaline Phosphatase 73 Total Protein 5.1 Albumin 2.7 Physical Exam HEENT: EOMI; normocephalic; atraumatic; no jaundice. CHEST: CTA CARDIAC: RRR ABDOMEN: Soft, nondistended, nontender; no hepatosplenomegaly; bowel sounds are present in all four quadrants. EXTREMITIES: No clubbing, cyanosis, or edema. SKIN: Normal; no rash; no jaundice. OIL PROSPECTING OBSERVER: No focal deficits; alert and oriented times three. 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 Underwent treatment with argon plasma incident response coordinator yesterday and feels OK today. No significant varices seen. GI bleed. stable Anemia due to blood loss. Stable Plan: -continue supportive care -PPI -regular diet. -f/u in clinic as outpt -GI will s/o This pt seen by myself and Dr Pete and this note is written on his behalf ( Dionne Allen) Physician Comments Patient seen and examined Agree with above Continue with current supportive care Monitor labs Follow-up with GI (Marcelino Pete MD) Dionne Allen October 26, 2016 15:40 Marcelino Pete MD October 26, 2016 22:36
[2016-10-26 15:45] VITALS: BP 108/50; PULSE 60; RESP 17; TEMP 97.4; O2SAT 97
--- NOTE | 2016-10-26 17:39 | HHI.PR ---
Subjective Remarks no complains feels good no nuasea or vomiting ate po 100% no melena or hematochezia Objective Vitals Vital Signs Date Time Temp Pulse Resp B/P Pulse Ox O2 Delivery O2 Flow Rate FiO2 10/26/16 15:45 97.4 60 17 108/50 97 10/26/16 11:55 96.3 52 17 112/50 98 10/26/16 08:10 53 10/26/16 08:00 95.8 54 17 97/43 98 10/26/16 05:30 98.0 56 17 99/50 95 10/26/16 00:30 97.7 58 18 110/80 99 10/25/16 21:07 21 10/25/16 21:00 57 10/25/16 20:45 98.8 54 17 115/78 99 I/O 10/25/16 10/25/16 10/25/16 10/26/16 10/26/16 10/26/16 07:00 15:00 23:00 07:00 15:00 23:00 Intake Total 500 ml 480 ml 850 ml 800 ml 240 ml Output Total 800 ml Balance 500 ml 480 ml 850 ml 0 ml 240 ml Intake Oral 500 ml 480 ml 850 ml 800 ml 240 ml Output Urine Total 800 ml # Voids 2 2 1 1 # Bowel Movements 0 0 1 0 Result Diagram: 10/26/16 0751 10/25/16 0733 Imaging Last Impressions Liver Ultrasound 10/24/16 0000 Signed Impressions: Service Date/Time: Monday, October 24, 2016 07:52 - CONCLUSION: 1. Findings indicating cirrhosis. 2. Findings indicating portal venous hypertension with recanalized local vein and splenomegaly. 3. Right pleural effusion. Jerel Blackburn MD Chest X-Ray 10/23/16 0000 Signed Impressions: Service Date/Time: Sunday, October 23, 2016 22:39 - CONCLUSION: No acute cardiopulmonary disease demonstrated. Alfonzo Nolasco MD Objective Remarks awake and alert, NAD , interactive mild icteresia no nuchal rigidity lungs- no rales regular rhythm abdomen-soft, + bowel sounds extremities no edema, moves all extremities spontaneously Procedures 10/24- EGD- angiodysplasia in fundus A/P Problem List: (1) GI bleeding ICD Code: K92.2 Status: Acute (2) Cirrhosis ICD Code: K74.60 Status: Acute (3) Diabetes ICD Code: E11.9 Status: Acute (4) Gastrointestinal hemorrhage with melena ICD Code: K92.1 Status: Acute (5) Acute blood loss anemia ICD Code: D62 Status: Acute (6) Chronic anemia ICD Code: D64.9 Status: Chronic (7) Portal hypertension with esophageal varices ICD Code: K76.6 Status: Acute Assessment and Plan 56-year-old female admitted for upper GI bleed with history of cirrhosis of unknown etiology Acute GI Bleed with acute blood loss anemia on top of chronic-status post transfusion, 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 Transfuse as needed, follow hemoglobin and hematocrit. Zofran as needed for symptomatic treatment. ADvance diet- tolerating change to po PPI on DC Acute anemia secondary to blood loss on top of chronic, bicytopenia- haptoglobin is low, LDH pending, also with hyper bilirubinemia. Possible hemolysis, previous bone marrow biopsy in April 2016 showed hypercellular marrow with trilineage hyperplasia with no stainable iron. Hematology ff. Received IV Iron x 1 Mild hypotension- resolved -echocardiogram previously showed ejection fraction 55-60%, stable. Increase activity and montior Sleepiness-- resolved. likely secondary to hypotension,Awake and alert. Stop Dilaudid, neurochecks. Cirrhosis Portal Hypertension Chronic lower extremity edema - restart meds, po DM type 2- good readings off Metformin FF up with PCP Home today FF up with PCP and GI as OP Tae Wilson MD October 26, 2016 17:39
--- NOTE | 2016-10-27 07:16 | HHI.DS ---
Discharge Summary Admission Date October 22, 2016 at 15:37 Discharge Date: October 26, 2016 Admitting Diagnosis GI bleed (1) Gastrointestinal hemorrhage with melena ICD Code: K92.1 Diagnosis: Principal (2) Cirrhosis ICD Code: K74.60 Diagnosis: Secondary (3) Diabetes ICD Code: E11.9 Diagnosis: Secondary (4) Acute blood loss anemia ICD Code: D62 Diagnosis: Secondary (5) Chronic anemia ICD Code: D64.9 Diagnosis: Secondary (6) Portal hypertension with esophageal varices ICD Code: K76.6 Diagnosis: Secondary Procedures 10/24- EGD- angiodysplasia in fundus Brief History - From Admission 56 year-old woman with a history of advanced cirrhosis, GI bleed with esophageal varices and gastric angiectasia, pancytopenia, and diabetes who presents to the emergency department with weakness, lightheadedness, fatigue, and dark stools. She follows with her primary Dr. Gray, as well as with gastroenterology Dr. Nguyen, and hematology Dr. Roberts. She's had banding of esophageal varices in the past, and recently was admitted in June with GI bleed and melena and found to have bleeding angiectasia in the gastric antrum as well as small esophageal varices of the distal esophagus. S she was admitted again in August with GI bleeding and found to have portal gastropathy as well as the same angiectasia. She is on furosemide 20 mg daily, as well as spironolactone 25 mg daily for edema. She is on metformin and glipizide for her diabetes. She is also on pantoprazole. She was in her usual state of health. She received an iron transfusion yesterday. Starting yesterday she started having worsening dizziness, lightheadedness, shaky feeling. The cervical 8 PM last night. She started noticing dark colored stools today. No nausea or vomiting. No chest pain. Some slight shortness of breath. She gets occasional hot flashes as well. She also gets some mild right sided abdominal pain more posteriorly, which is unusual for her. No other complaints. CBC/BMP: 10/26/16 0751 10/25/16 0733 Significant Findings Laboratory Tests Test 10/25/16 10/26/16 10/26/16 07:33 07:51 11:14 Red Blood Count 3.42 MIL/MM3 3.47 MIL/MM3 (4.00-5.30) (4.00-5.30) Hemoglobin 8.9 GM/DL 9.2 GM/DL (11.6-15.3) (11.6-15.3) Hematocrit 27.7 % 28.5 % (35.0-46.0) (35.0-46.0) Mean Corpuscular Hemoglobin 26.0 PG 26.5 PG (27.0-34.0) (27.0-34.0) Red Cell Distribution Width 23.2 % 24.1 % (11.6-17.2) (11.6-17.2) Platelet Count 52 TH/MM3 52 TH/MM3 (150-450) (150-450) Platelet Estimate LOW (NORMAL) LOW (NORMAL) Tear Drop Cells 1+ (NORMAL) 1+ (NORMAL) Ovalocytes 2+ (NORMAL) 2+ (NORMAL) Sherwin Cells 1+ (NORMAL) Reticulocyte Count 5.9 % (0.4-3.0) Absolute Reticulocyte Count 197.8 MIL/L (20.0-150.0) Chloride Level 112 MEQ/L (98-107) Carbon Dioxide Level 19.8 MEQ/L (21.0-32.0) Estimat Glomerular Filtration 57 ML/MIN (>89) Rate Random Glucose 149 MG/DL (74-106) Calcium Level 7.2 MG/DL (8.5-10.1) Protein Corrected Calcium 8.4 MG/DL (8.5-10.1) Total Bilirubin 5.0 MG/DL 5.0 MG/DL (0.2-1.0) (0.2-1.0) Direct Bilirubin 1.6 MG/DL 1.7 MG/DL (0.0-0.2) (0.0-0.2) Indirect Bilirubin 3.4 MG/DL 3.3 MG/DL (0.0-0.8) (0.0-0.8) Ammonia 122 MCMOL/L (11-32) Lactate Dehydrogenase 270 U/L (84-246) Total Protein 5.0 GM/DL 5.1 GM/DL (6.4-8.2) (6.4-8.2) Albumin 2.6 GM/DL 2.7 GM/DL (3.4-5.0) (3.4-5.0) Monocytes (%) (Auto) 9.6 % (0.0-8.0) Acanthocytes OCC (NORMAL) Imaging Last Impressions Liver Ultrasound 10/24/16 0000 Signed Impressions: Service Date/Time: Monday, October 24, 2016 07:52 - CONCLUSION: 1. Findings indicating cirrhosis. 2. Findings indicating portal venous hypertension with recanalized local vein and splenomegaly. 3. Right pleural effusion. Jerel Blackburn MD Chest X-Ray 10/23/16 0000 Signed Impressions: Service Date/Time: Sunday, October 23, 2016 22:39 - CONCLUSION: No acute cardiopulmonary disease demonstrated. 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 Transfuse as needed, follow hemoglobin and hematocrit. Zofran as needed for symptomatic treatment. ADvance diet- tolerating change to po PPI on DC Acute anemia secondary to blood loss on top of chronic, bicytopenia- haptoglobin is low, LDH pending, also with hyper bilirubinemia. Possible hemolysis, previous bone marrow biopsy in April 2016 showed hypercellular marrow with trilineage hyperplasia with no stainable iron. Hematology ff. Received IV Iron x 1 Mild hypotension- resolved -echocardiogram previously showed ejection fraction 55-60%, stable. Increase activity and montior Sleepiness-- resolved. likely secondary to hypotension,Awake and alert. Stop Dilaudid, neurochecks. Cirrhosis Portal Hypertension Chronic lower extremity edema - restart meds, po DM type 2- good readings off Metformin FF up with PCP Home today FF up with PCP and GI as OP Pt Condition on Discharge: Stable Discharge Disposition: Discharge Home Discharge Time: <= 30 minutes Discharge Instructions DIET: Follow Instructions for: Heart Healthy Diet, Diabetic Diet Speech Therapy-Diet Recommends: Regular Activities you can perform: Weight Bearing as [place] Activities to Avoid: Strenuous Activity Follow up Referrals: Gastroenterology - 1 Week with Marcelino Pete MD PCP Follow-up - 10/28/16 with hipolito Continued Medications: B-Complex Vitamins (B Complex) 1 Cap 1 CAP PO DAILY Nutritional Supplement #30 Ref 0 CAP Furosemide (Furosemide) 20 Mg Tab 40 MG PO DAILY #60 Ref 0 TAB Glipizide (Glipizide) 5 Mg Tab 5 MG PO DAILY Take 30 minutes before a meal Blood Sugar Management #30 Ref 3 TAB Multiple Vitamins W/ Minerals (Multivitamin Women) 1 Tab Tab 1 TAB PO DAILY Nutritional Supplement Ref 0 TAB Pantoprazole (Pantoprazole) 40 Mg Tab 80 MG PO BID Reflux #30 Ref 0 TAB Spironolactone (Spironolactone) 25 Mg Tab 25 MG PO BID #30 Ref 0 TAB Discontinued Medications: Metformin (Glucophage) 500 Mg Tab 2 TAB PO BIDPC With meals Blood Sugar Management #60 Ref 2 TAB Nadolol (Nadolol) 20 Mg Tab 20 MG PO DAILY #30 Ref 0 TAB Tae Wilson MD October 27, 2016 07:16
[2016-10-28 11:51] LABS: IGA SERUM 257 mg/dL (81-463); TISSUE TRANSGLUTAMINASE AB IGG ND U/mL (())
[2016-10-28 15:53] LABS: ENDOMYSIAL AB TITER ND (<1:5); TISSUE TRANSGLUTAMINASE AB LESS THAN 1 U/mL (())
[2016-11-09] MEDS ORDERED: METF500T PO (08:29)
[2016-11-13] MEDS ORDERED: NADO20TA PO (10:59)
[2016-11-13] MEDS ORDERED: ONETAB22 PO (10:59)
[2016-11-13] MEDS ORDERED: PROP10TA6 PO (10:59)
[2016-11-13] MEDS ORDERED: PROM12.54 PO (11:00)
== END 2016-10-26 19:50 | disposition home or self-care (01) | DRG 378 ==
LOC: PHED 13:42 → PHEDA 15:37 → PH3B 16:20 → N05B 10-23 19:17
PROVIDERS: ADMIT Internal Medicine; ATTEND Internal Medicine
PROC: 30233N1 Transfusion of Nonautologous Red Blood Cells into Peripheral Vein, Percutaneous Approach (ICD-10-PCS; 2016-10-22)
PROC: 30233R1 Transfusion of Nonautologous Platelets into Peripheral Vein, Percutaneous Approach (ICD-10-PCS; principal; 2016-10-23)
PROC: 0W3P8ZZ Control Bleeding in Gastrointestinal Tract, Via Natural or Artificial Opening Endoscopic (ICD-10-PCS; 2016-10-24)
DX: K31.811 Angiodysplasia of stomach and duodenum with bleeding (principal); K76.6 Portal hypertension; D69.59 Other secondary thrombocytopenia; D62 Acute posthemorrhagic anemia; K74.69 Other cirrhosis of liver; K44.9 Diaphragmatic hernia without obstruction or gangrene; I85.10 Secondary esophageal varices without bleeding; E11.9 Type 2 diabetes mellitus without complications; D50.0 Iron deficiency anemia secondary to blood loss (chronic); K75.81 Nonalcoholic steatohepatitis (NASH); E78.5 Hyperlipidemia, unspecified; K21.9 Gastro-esophageal reflux disease without esophagitis; I10 Essential (primary) hypertension; Z79.84 Long term (current) use of oral hypoglycemic drugs
CPT/HCPCS: 36430; 71010; 76705; 80048; 80053; 80076; 82105; 82140; 82247; 82248; 82390; 82728; 82784; 82948; 83010; 83516; 83540; 83550; 83615; 84155; 85007; 85025; 85027; 85044; 85610; 85730; 86850; 86880; 86900; 86901; 86920; 86922; 96360; C9113; J1170; J1756; J1815; J2354; J2405; J7030; J7040; P9016; P9035

== ENCOUNTER → 2016-11-16 | Outpatient (CLI) | payer OTHER ==
[~2016-11-16] MED LIST changes: -METF500 PO; +METF500T PO; -MULT-120 PO; +ONETAB22 PO; +PROM12.54 PO
[2016-11-16 09:06] LABS: AUTOMATED NEUTROPHIL # 3.5 TH/MM3 (1.8-7.7); BASOPHIL % 0.5 % (0.0-2.0); EOSINOPHIL # 0.2 TH/MM3 (0-0.4); LYMPH % 26.6 % (9.0-44.0); LYMPHOCYTE # 1.4 TH/MM3 (1.0-4.8); MEAN CELL VOLUME 84.6 FL (80.0-100.0); MEAN CORPUSCULAR HEMOGLOBIN 28.8 PG (27.0-34.0); MONO % 4.7 % (0.0-8.0); NEUT % 64.2 % (16.0-70.0); PLATELET COUNT 63 TH/MM3 (150-450); RED BLOOD COUNT 4.14 MIL/MM3 (4.00-5.30); WHITE BLOOD COUNT 5.4 TH/MM3 (4.0-11.0)
[2016-11-16 09:16] LABS: HEMO FLAGS AUTO DIFF
[2016-11-16 09:33] LABS: ANION GAP 11 MEQ/L (5-15); AST (GOT) 27 U/L (15-37); BICARBONATE 23.9 MEQ/L (21.0-32.0); BLOOD UREA NITROGEN 5 MG/DL (7-18); CHLORIDE 108 MEQ/L (98-107); GLOMERULAR FILTRATION RATE 85 ML/MIN (>89); GLUCOSE,FASTING 102 MG/DL (74-99); SODIUM (NA) 143 MEQ/L (136-145)
[2016-11-16 09:45] LABS: ALKALINE PHOSPHATASE 91 U/L (45-117); ALT (GPT) 23 U/L (10-53); TOTAL BILIRUBIN ADULT 4.3 MG/DL (0.2-1.0)
[2016-11-16 10:01] LABS: OVALOCYTES 2+ (NORMAL)
[2016-11-16 10:02] LABS: PLATELET ESTIMATE SMEAR LOW (NORMAL); PLATELET MORPHOLOGY NORMAL (NORMAL); SCAN/DIFF AUTO DIFF CONFIRMED; TOXIC VACUOLATION PRESENT (NONE SEEN)
== END ==
LOC: CLAB 08:23
PROVIDERS: ATTEND Family Medicine
DX: D69.6 Thrombocytopenia, unspecified (principal)
CPT/HCPCS: 36415; 80053; 83520; 85025; 86256